=== PATIENT | male | born 1985 | race Caucasian/White ===

== ENCOUNTER 2023-03-13 14:27 | Inpatient (IN) | payer BC, SELFPAY ==
[2023-03-13] VITALS (8 sets, daily range): BP systolic 154–167; BP diastolic 91–97; PULSE 81–94; RESP 12–18; TEMP 36.7–36.9; O2SAT 95–100; BMI 25.8; BMI 24.0
--- NOTE | 2023-03-13 14:48 | ED.GENADUL1 ---
HPI - General Adult General Chief complaint: Extremity Injury, Lower Stated complaint: RIGHT LEG SWOLLEN/ WOUND CHECK Time Seen by Provider: 03/13/23 14:37 Source: patient Limitations: no limitations History of Present Illness HPI narrative: patient is a 37-year-old male with a history of diabetes who presents to the emergency department for the evaluation of redness, swelling to the right foot. Three weeks ago he developed a blister to the plantar aspect of the right great toe, he states he is on his feet a lot at work. He was seen by his PCP yesterday for an increase in redness and swelling to the foot, there has been drainage from the area where the blister appeared on the toe, there is now an open wound. He had lab work and an x-ray done at [facility] yesterday. His PCP put him on Keflex. He states in the last day he has noted significant increasing redness and swelling of the foot. No fevers or vomiting. Related Data Home Medications Medication Instructions Recorded Confirmed cephalexin 500 mg capsule 500 mg PO Q6H 03/13/23 03/13/23 levothyroxine 100 mcg tablet 100 mcg PO DAILY 03/13/23 03/13/23 lisinopril 5 mg tablet 5 mg PO DAILY 03/13/23 03/13/23 Allergies Allergy/AdvReac Type Severity Reaction Status Date / Time No Known Drug Allergies Allergy Verified 03/13/23 14:37 Review of Systems ROS Constitutional Denies: fever or chills Ears, nose, mouth, and throat Denies: throat pain Cardiovascular Denies: chest pain Respiratory Denies: shortness of breath or cough Gastrointestinal Denies: nausea or vomiting Musculoskeletal Reports: extremity pain and extremity swelling; Denies: back pain or neck pain Integumentary/Breast Denies: rash Neurological Denies: headache Hematologic/Lymphatic Denies: easy bruising PFSH PFSH Social History Smoking status: Current every day smoker Exam Narrative Exam Narrative: Gen.: Awake, alert, in no distress Head: Normocephalic, atraumatic ENT: Moist mucous membranes Respiratory: No respiratory distress Extremities: Moves extremities equally, right foot is edematous diffusely with the distal foot from the mid metatarsals with erythema and warmth. Right great toe with a 1 cm open wound on the plantar aspect of the toe, the right great toe is diffusely edematous, and red and painful. Psych: Normal mood and affect Neuro: No focal neuro deficit Skin: Warm, dry Constitutional Vital Signs, click to edit/add: Last Vital Signs Temp 98.4 F 03/13/23 14:39 Pulse 88 03/13/23 14:39 Resp 12 03/13/23 14:39 BP 167/97 H 03/13/23 14:39 Pulse Ox 100 03/13/23 14:39 O2 Del Method Room Air 03/13/23 14:39 Course Vital Signs Vital signs: Vital Signs Temperature 98.4 F 03/13/23 14:39 Pulse Rate 88 03/13/23 14:39 Respiratory Rate 12 03/13/23 14:39 Blood Pressure 167/97 H 03/13/23 14:39 Pulse Oximetry 100 03/13/23 14:39 Oxygen Delivery Method Room Air 03/13/23 14:39 Temperature 98.4 F 03/13/23 14:39 Pulse Rate 88 03/13/23 14:39 Respiratory Rate 12 03/13/23 14:39 Blood Pressure 167/97 H 03/13/23 14:39 Pulse Oximetry 100 03/13/23 14:39 Oxygen Delivery Method Room Air 03/13/23 14:39 Medical Decision Making MDM Narrative Medical decision making narrative: patient treated with IV fluids, Zosyn and vancomycin. Labs show elevated white blood cell count, elevated CRP and sedimentation rate. Blood cultures are pending. X-ray with no obvious evidence of osteomyelitis. Discussed with Dr. Cortez for podiatry and Dr. Hancock for hospitalist service to admit the patient. Podiatry will see the patient tomorrow morning in the hospital. Medical Records Medical records reviewed: Yes I reviewed the patient's medical records Lab Data Lab results reviewed: Yes I reviewed the patient's lab results Labs: Lab Results 03/13/23 03/13/23 Range/Units 15:00 15:19 WBC 17.7 H (4.0-11.0) 10^3/uL RBC 3.78 L (4.70-6.10) 10^6/uL Hgb 11.9 L (14.0-18.0) g/dL Hct 35.0 L (42.0-54.0) % MCV 92.6 (80.0-94.0) fL MCH 31.5 (25.9-34.0) pg MCHC 34.0 (29.9-35.2) g/dL RDW 11.8 (11.0-15.0) % Plt Count 314 (150-450) 10^3/uL MPV 9.8 (9.5-13.5) fL Neut % (Auto) 82.5 H (43.0-75.0) % Lymph % (Auto) 8.7 L (20.5-60.0) % [place] % (Auto) 7.4 (1.7-12.0) % Eos % (Auto) 0.5 L (0.9-7.0) % Baso % (Auto) 0.5 (0.2-2.0) % Neut # (Auto) 14.6 H (1.4-6.5) 10^3/uL Lymph # (Auto) 1.6 (1.2-3.8) 10^3/uL [place] # (Auto) 1.3 H (0.3-0.8) 10^3/uL Eos # (Auto) 0.1 (0.0-0.7) 10^3/uL Baso # (Auto) 0.1 (0.0-0.1) 10^3/uL Abs Immat Gran (auto) 0.07 H (0.00-0.03) 10^3/uL Imm/Tot Granulo (auto) 0.4 (0.0-0.5) % ESR 105 H (<=15) mm/hr PT 10.9 (9.0-11.6) sec INR 1.03 APTT 35.2 (22.3-36.2) sec Sodium 131 L (136-145) mmol/L Potassium 4.3 (3.5-5.1) mmol/L Chloride 95 L (98-107) mmol/L Carbon Dioxide 29.0 (21.0-32.0) mmol/L Anion Gap 11.3 BUN 23.0 H (7.0-18.0) mg/dL Creatinine 0.88 (0.70-1.30) mg/dL Est GFR ( Amer) >60 (>=60) Est GFR (Non-Af Amer) >60 (>=60) BUN/Creatinine Ratio 26.1 Glucose 332 H (74-106) mg/dL Lactate 0.8 (0.4-2.0) mmol/L Calcium 8.4 L (8.5-10.1) mg/dL Total Bilirubin 0.6 (0.2-1.0) mg/dL AST 27 (15-37) U/L ALT 26 (16-63) U/L Alkaline Phosphatase 90 (46-116) U/L C-Reactive Protein 16.7 H (<=1.0) mg/dL Total Protein 7.1 (6.4-8.2) g/dL Albumin 2.4 L (3.4-5.0) g/dL Globulin 4.7 g/dL Albumin/Globulin Ratio 0.5 Imaging Data XR foot: Attestation: I have reviewed the pertinent imaging results. Radiologist's impression: Procedure: XR foot RT min 3V EXAM: XR foot RT min 3V HISTORY: First digit pain COMPARISON: None. TECHNIQUE: 3 views FINDINGS: IMPRESSION: Subcutaneous soft tissue edema of the first digit and medial aspect of the foot. Questionable subcutaneous soft tissue emphysema. No visualized fracture, dislocation or periosteal reaction of the osseous structures. Mild degenerative changes of the first IP joint. This may relate to an infection, however, limited on this study. The remainder of the joint spaces are unremarkable. Electronically authenticated by: ANAY BUTT Date: 03/13/2023 15:52 Discharge Plan Discharge Chief Complaint: Extremity Injury, Lower Clinical Impression: Wound infection, Diabetic foot ulcer Patient Disposition: Admitted As Inpatient Time of Disposition Decision: 16:12 Prescriptions / Home Meds: No Action levothyroxine 100 mcg tablet 100 mcg PO DAILY lisinopril 5 mg tablet 5 mg PO DAILY cephalexin 500 mg capsule 500 mg PO Q6H Stand Alone Forms: Portal Instructions Referrals: ANAY QUIJANO [Primary Care Provider] - 1 week
--- NOTE | 2023-03-13 14:55 | XR_ITS ---
The [address] [address] Patient Name: NELLY WARD MRN: [id number] date: 1985 Sex: M Assigned Patient Location: ER Current Patient Location: ER Accession/Order Number: [id number] Exam Date: 03/13/2023 15:25 Report Date: 03/13/2023 15:52 At the request of: TERRIE PEREZ Procedure: XR foot RT min 3V EXAM: XR foot RT min 3V HISTORY: First digit pain COMPARISON: None. TECHNIQUE: 3 views FINDINGS: IMPRESSION: Subcutaneous soft tissue edema of the first digit and medial aspect of the foot. Questionable subcutaneous soft tissue emphysema. No visualized fracture, dislocation or periosteal reaction of the osseous structures. Mild degenerative changes of the first IP joint. This may relate to an infection, however, limited on this study. The remainder of the joint spaces are unremarkable. Electronically authenticated by: ANAY BUTT Date: 03/13/2023 15:52
[2023-03-13] MEDS: 0.9 % SODIUM CHLORIDE 1,000 ML 1000 ML IV (15:16)
[2023-03-13] MEDS: VANCOMYCIN HCL 1,000 MG in 0.9 % SODIUM CHLORIDE 500 ML 250 MG IV (15:17)
[2023-03-13] MEDS: PIPERACILLIN SODIUM/TAZOBACTAM 4.5 GM in 0.9 % SODIUM CHLORIDE 50 ML IV (15:17)
[2023-03-13 15:30] LABS: Basophils Absolute Auto 0.1 10^3/uL (0.0-0.1); Basophils Percent Auto 0.5 % (0.2-2.0); Eosinophils Absolute Auto 0.1 10^3/uL (0.0-0.7); Eosinophils Percent Auto 0.5 % (0.9-7.0); Hemoglobin 11.9 g/dL (14.0-18.0); Immature Granulocytes Abs Auto 0.07 10^3/uL (0.00-0.03); Immature Granulocytes Pct Auto 0.4 % (0.0-0.5); Lymphocytes Absolute Auto 1.6 10^3/uL (1.2-3.8); Lymphocytes Percent Auto 8.7 % (20.5-60.0); Mean Corpuscular Hemoglobin 31.5 pg (25.9-34.0); Mean Corpuscular Volume 92.6 fL (80.0-94.0); Mean Platelet Volume 9.8 fL (9.5-13.5); Monocytes Absolute Auto 1.3 10^3/uL (0.3-0.8); Monocytes Percent Auto 7.4 % (1.7-12.0); Neutrophils Absolute Auto 14.6 10^3/uL (1.4-6.5); Neutrophils Percent Auto 82.5 % (43.0-75.0); Platelet Count 314 10^3/uL (150-450); Red Blood Count 3.78 10^6/uL (4.70-6.10); Red Cell Distribution Width 11.8 % (11.0-15.0); White Blood Count 17.7 10^3/uL (4.0-11.0)
[2023-03-13 15:34] LABS: Erythrocyte Sedimentation Rate 105 mm/hr (<=15)
[2023-03-13 15:52] LABS: INR 1.03; Lactate/Lactic Acid 0.8 mmol/L (0.4-2.0); Partial Thromboplastin Time 35.2 sec (22.3-36.2); Prothrombin Time 10.9 sec (9.0-11.6)
[2023-03-13 15:55] LABS: Alanine Aminotransferase 26 U/L (16-63); Albumin Globulin Ratio 0.5; Albumin Level 2.4 g/dL (3.4-5.0); Alkaline Phosphatase 90 U/L (46-116); Anion Gap 11.3; Aspartate Amino Transferase 27 U/L (15-37); BUN Creatinine Ratio 26.1; Bilirubin Total 0.6 mg/dL (0.2-1.0); C Reactive Protein 16.7 mg/dL (<=1.0); Calcium 8.4 mg/dL (8.5-10.1); Chloride 95 mmol/L (98-107); Estimated GFR (African America >60 (>=60); Estimated GFR (Non-African Ame >60 (>=60); Globulin 4.7 g/dL; Glucose 332 mg/dL (74-106); Potassium 4.3 mmol/L (3.5-5.1); Sodium 131 mmol/L (136-145); Total Protein 7.1 g/dL (6.4-8.2)
--- NOTE | 2023-03-13 16:04 | ECG_ITS ---
The [facility] Test Date: 2023-03-13 Pat Name: NELLY WARD Department: Room: 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
--- NOTE | 2023-03-13 16:13 | P.HP_ITS ---
H&P: HPI History of Present Illness Chief complaint: RIGHT LEG/FOOT WOUND CHECK,Diabetic Foot Wound Inf Narrative: 37 year old white male with history of HTN, type 2 diabetes insulin dependent, hypothyroidism who presented to hospital today with increased swelling, redness and pain of the right foot. Blister present for 3 weeks which has progressed to drainage. Did see his PCP recently and placed on keflex as outpatient. Worsening symptoms today brought him in of swelling up to his knee, purulent drainage from his toe, and chills. Patient denies significant pain, or vomiting. Sees Endocrine in [place], takes lantus and SSI. Last ha1c was 9.0 Review of Systems ROS Narrative ROS: a complete review of systems were reviewed with patient and are positive as below or listed in History of Chief Complaint. General: no fever, but some chills, no night sweats Head: no headache, trauma, visual changes, nausea or vomiting Skin: sore noted on the right great toe with swelling and redness Eyes: no blurriness of vision Ears: no reported hearing loss, vertigo, earache, or tinnitus Throat: no sore throat, hoarseness, swelling of neck, or tongue pain Heart: no chest pain Lungs: no shortness of breath or cough GI: no diarrhea or vomiting/nausea Urinary: no urinary urgency, frequency or pain Neuro: no numbness or tingling HEM: no bleeding issues or bruising ENDO: thyroid problems Psych: no anxiety or depression PFSH PFSH Social History Smoking status: Current every day smoker Meds Home Medications and Allergies Home Medications Medication Instructions Recorded Confirmed Type atorvastatin 20 mg tablet 20 mg PO .hs 03/13/23 03/13/23 History cephalexin 500 mg capsule 500 mg PO Q6H 03/13/23 03/13/23 History ergocalciferol (vitamin D2) 1,250 1,250 mcg PO .weekly 03/13/23 03/13/23 History mcg (50,000 unit) capsule levothyroxine 100 mcg tablet 100 mcg PO DAILY 03/13/23 03/13/23 History lisinopril 5 mg tablet 5 mg PO DAILY 03/13/23 03/13/23 History Allergies Allergy/AdvReac Type Severity Reaction Status Date / Time No Known Drug Allergies Allergy Verified 03/13/23 14:37 Exam Narrative Exam Narrative: General: Patient is alert, and oriented to person, place and time with normal affect, proper hygiene Skin: right great toe with deep ulcer on the plantar surface, purulent drainage, swelling and erythema that includes the top of the foot to just below the right knee; pain with palpation into the 1st metatarsal joint Head: atraumatic, acephalic Eyes: PERRLA, no nystagmus present, conjunctiva clear, no scleral icterus Heart: Normal rate and rhythm, no murmurs/rubs/gallops Lungs: no audible wheezes, crackles and normal breath sounds all lung plasencia Abdomen: Normal audible bowel sounds, no distension, No palpable masses, no organomegaly, no rebound/guarding/ or rigidity Musculoskeletal: no swelling of the left lower extremities Neuro: CN II-X grossly intact, normal sensation upper and lower extremities Constitutional Vital Signs, click to edit/add: Last Vital Signs Temp 98.4 F 03/13/23 14:39 Pulse 81 03/13/23 16:08 Resp 18 03/13/23 16:08 BP 154/91 H 03/13/23 16:08 Pulse Ox 98 03/13/23 16:08 O2 Del Method Room Air 03/13/23 14:39 Results Labs Labs: Short CBC 03/13/23 Range/Units 15:00 WBC 17.7 H (4.0-11.0) 10^3/uL Hgb 11.9 L (14.0-18.0) g/dL Hct 35.0 L (42.0-54.0) % Plt Count 314 (150-450) 10^3/uL BMP 03/13/23 15:00 Sodium 131 L Potassium 4.3 Chloride 95 L Carbon Dioxide 29.0 BUN 23.0 H Creatinine 0.88 Glucose 332 H Calcium 8.4 L Liver Function 03/13/23 Range/Units 15:00 Total Bilirubin 0.6 (0.2-1.0) mg/dL AST 27 (15-37) U/L ALT 26 (16-63) U/L Alkaline Phosphatase 90 (46-116) U/L Albumin 2.4 L (3.4-5.0) g/dL Assessment and Plan Assessment and Plan (1) Cellulitis and abscess of foot: Assessment and Plan: podiatry consult, elevated CRP and ESR, elevated WBC's. will place on vanc and zosyn. NPO after midnight incase of surgical debridement tomorrow. Normal coags, check presurgical EKG, telemetry (2) Diabetic foot ulcer: Assessment and Plan: see #1, ha1c in the morning (3) Hypertension: Assessment and Plan: continue lisinopril, add hydralazine (4) Hypothyroidism: Assessment and Plan: continue levothyroxine (5) Type 2 diabetes mellitus: Assessment and Plan: ha1c in the morning, ssi, qac and qhs accuchecks, restart Lantus Plan full code lovenox for DVT prophylaxis
[2023-03-13 16:25] LABS: Vancomycin Trough <0.8 ug/mL (5.0-20.0)
[2023-03-13] MEDS: PIPERACILLIN SODIUM/TAZOBACTAM 3.375 GM in 0.9 % SODIUM CHLORIDE 50 ML IV (18:58)
[2023-03-13] MEDS: LACTATED RINGER'S SOLUTION 1,000 ML 125 ML IV (18:58)
[2023-03-13] MEDS: ENOXAPARIN SODIUM 40 MG/0.4 ML SYRINGE SUBQ (20:11)
[2023-03-13] MEDS: LEVOTHYROXINE SODIUM 100 MCG TABLET PO (20:11)
[2023-03-13] MEDS: LISINOPRIL 5 MG TABLET PO (20:11)
[2023-03-13 20:15] LABS: Glucometer 367 mg/dL (74-106)
[2023-03-13] MEDS: INSULIN ASPART 300 UNIT/3 ML PEN SUBQ (21:30)
[2023-03-14] VITALS (67 sets, daily range): BP systolic 84–141; BP diastolic 55–84; PULSE 67–97; RESP 0–28; TEMP 36.7–37; O2SAT 93–100
[2023-03-14] MEDS: VANCOMYCIN HCL 1,000 MG in 0.9 % SODIUM CHLORIDE 250 ML 250 MG IV ×4 (00:16→22:24)
[2023-03-14] MEDS: PIPERACILLIN SODIUM/TAZOBACTAM 3.375 GM in 0.9 % SODIUM CHLORIDE 50 ML IV ×3 (02:35→20:34)
[2023-03-14 05:03] LABS: Basophils Absolute Auto 0.1 10^3/uL (0.0-0.1); Basophils Percent Auto 0.7 % (0.2-2.0); Eosinophils Absolute Auto 0.3 10^3/uL (0.0-0.7); Eosinophils Percent Auto 2.1 % (0.9-7.0); Hematocrit 30.3 % (42.0-54.0); Hemoglobin 10.4 g/dL (14.0-18.0); Immature Granulocytes Abs Auto 0.06 10^3/uL (0.00-0.03); Immature Granulocytes Pct Auto 0.4 % (0.0-0.5); Lymphocytes Absolute Auto 2.3 10^3/uL (1.2-3.8); Lymphocytes Percent Auto 15.7 % (20.5-60.0); Mean Corpuscular HGB Conc 34.3 g/dL (29.9-35.2); Mean Corpuscular Hemoglobin 31.6 pg (25.9-34.0); Mean Corpuscular Volume 92.1 fL (80.0-94.0); Mean Platelet Volume 10.1 fL (9.5-13.5); Monocytes Absolute Auto 1.2 10^3/uL (0.3-0.8); Neutrophils Absolute Auto 10.5 10^3/uL (1.4-6.5); Neutrophils Percent Auto 73.1 % (43.0-75.0); Platelet Count 288 10^3/uL (150-450); Red Blood Count 3.29 10^6/uL (4.70-6.10); Red Cell Distribution Width 11.7 % (11.0-15.0); White Blood Count 14.3 10^3/uL (4.0-11.0)
[2023-03-14 05:21] LABS: Estimated Average Glucose 212 mg/dL
[2023-03-14 05:34] LABS: Alanine Aminotransferase 22 U/L (16-63); Albumin Globulin Ratio 0.5; Albumin Level 1.9 g/dL (3.4-5.0); Alkaline Phosphatase 94 U/L (46-116); Anion Gap 9.1; Aspartate Amino Transferase 17 U/L (15-37); BUN Creatinine Ratio 21.4; Bilirubin Total 0.3 mg/dL (0.2-1.0); Calcium 8.1 mg/dL (8.5-10.1); Chloride 97 mmol/L (98-107); Estimated GFR (African America >60 (>=60); Estimated GFR (Non-African Ame >60 (>=60); Globulin 4.1 g/dL; Glucose 343 mg/dL (74-106); Potassium 4.1 mmol/L (3.5-5.1); Sodium 129 mmol/L (136-145)
--- NOTE | 2023-03-14 09:04 | PM.PN ---
Progress Note: Subjective Subjective Interval history: went to see patient post op. denies any issues or concerns. patient feels surgery went well. No current pain, no fevers or chills, no chest pain or sob Exam Narrative Exam Narrative: General: Patient is alert, and oriented to person, place and time with normal affect, proper hygiene, was resting comfortably Skin: right foot dressing is c/d/i Head: atraumatic, acephalic Heart: Normal rate and rhythm, no murmurs/rubs/gallops Lungs: no audible wheezes, crackles and normal breath sounds all lung plasencia Neuro: CN II-X grossly intact Constitutional Vital Signs, click to edit/add: Last Vital Signs Temp 98.4 F 03/14/23 06:33 Pulse 77 03/14/23 08:00 Resp 16 03/14/23 05:06 BP 126/68 03/14/23 05:06 Pulse Ox 93 L 03/14/23 05:06 O2 Del Method Room Air 03/14/23 05:06 Progress Note: Objective Labs Labs: Short CBC 03/13/23 03/14/23 Range/Units 15:00 04:05 WBC 17.7 H 14.3 H (4.0-11.0) 10^3/uL Hgb 11.9 L 10.4 L (14.0-18.0) g/dL Hct 35.0 L 30.3 L (42.0-54.0) % Plt Count 314 288 (150-450) 10^3/uL BMP 03/13/23 03/14/23 15:00 04:05 Sodium 131 L 129 L Potassium 4.3 4.1 Chloride 95 L 97 L Carbon Dioxide 29.0 27.0 BUN 23.0 H 18.0 Creatinine 0.88 0.84 Glucose 332 H 343 H Calcium 8.4 L 8.1 L Liver Function 03/13/23 03/14/23 Range/Units 15:00 04:05 Total Bilirubin 0.6 0.3 (0.2-1.0) mg/dL AST 27 17 (15-37) U/L ALT 26 22 (16-63) U/L Alkaline Phosphatase 90 94 (46-116) U/L Albumin 2.4 L 1.9 L (3.4-5.0) g/dL Progress Note: A&P Assessment and Plan (1) Cellulitis and abscess of foot: Assessment and Plan: elevated CRP and ESR, elevated WBC's, slight improvement today. will place on vanc and zosyn. surgery today, continue podiatry recs (2) Diabetic foot ulcer: Assessment and Plan: see #1 (3) Hypertension: Assessment and Plan: continue lisinopril, and hydralazine (4) Hypothyroidism: Assessment and Plan: continue levothyroxine (5) Type 2 diabetes mellitus: Assessment and Plan: ha1c 9.0, ssi, qac and qhs accuchecks, restart Lantus 10 units bid Plan full code lovenox for DVT prophylaxis
[2023-03-14] MEDS: INSULIN ASPART 300 UNIT/3 ML PEN SUBQ ×3 (09:43→20:32)
--- NOTE | 2023-03-14 09:46 | PM.PODCN1 ---
[facility] - Podiatry Data of Consult Patient: new to practice Consult date: 03/14/23 Requesting physician: Rupal Hancock DO Primary care provider: ANAY QUIJANO Consult Narrative Reason for consult: Right great toe ulcer, Infection Narrative: Patient is a 37-year-old male presents to [facility] yesterday with chief complaint of right hallux ulcer with worsening redness, swelling, pain and drainage week. Patient states that he first noticed the ulcer about 3 weeks ago which started as a blister and subsequently developed this ulcer. He did see his primary care approximately 2 days ago for this and was placed on Keflex. However the next day he noticed the increase in symptoms and presented to the ED. He was subsequently admitted for further work-up he denies any specific incident causing the ulcer. 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 Admits to smoking 1 pack/day since his teens. Denies any other lower extremity complaints at this time. Denied any constitutional symptoms at time of visit. cc:: CC: Rupal Hancock DO [facility] Social History Smoking status: Current every day smoker Exam Narrative Exam Narrative: Vascular: DP and PT pulses nonpalpable, DP biphasic and PT monophasic on Doppler exam. CFT intact to digits 2 through 4. Tuft of right hallux is dusky with significantly delayed refill. Erythema extending from the right hallux to the foot with mild nonpitting edema of the right foot and ankle. No ascending lymphangitis. Neuro: Light touch and gross sensation intact. Protective sensation is diminished to the digits. No pain out of proportion. Derm: Full-thickness ulceration right plantar medial hallux IPJ with fibrotic base and central necrotic plug, approximately 1 cc purulent drainage expressed. There is fluctuance to the tuft of the toe as well as the dorsal IPJ suspicious for abscess. Probes to capsular layer. No other open lesions noted. MSK: Strength 5/5 for all 4 pedal groups. Active and passive range of motion the ankle subtalar joint full without pain or crepitus. Right first MTP range of motion limited in dorsiflexion with guarding due to pain from the ulcer. Active range of motion of the first MTP intact. Palpatory tenderness elicited directly to the ulceration as well as the right hallux circumferentially. Compartments are compressible with no pain upon calf or thigh compression. X-ray: 3 views of right foot demonstrate no soft tissue emphysema. There is soft tissue defect consistent with the clinical ulceration site. No cortical destructive changes to suggest osteomyelitis. There is significant osteophyte formation to the medial and plantar hallux IPJ. Constitutional Vital Signs, click to edit/add: Last Vital Signs Temp 98.4 F 03/14/23 06:33 Pulse 77 03/14/23 08:00 Resp 16 03/14/23 05:06 BP 126/68 03/14/23 05:06 Pulse Ox 93 L 03/14/23 05:06 O2 Del Method Room Air 03/14/23 05:06 Assessment and Plan Assessment and Plan (1) Cellulitis and abscess of foot: (2) Diabetic foot ulcer: (3) Hypertension: (4) Hypothyroidism: (5) Type 2 diabetes mellitus: Plan Patient examined evaluated. All findings discussed with patient and all questions answered to patient's satisfaction. Labs and imaging reviewed. Leukocytosis at 14,000, down from 17,000 yesterday. ESR 102 and CRP 16. X-ray did not show any occult cortical destructive changes, there are significant osteophytes to the medial and plantar aspect of the base of the distal phalanx which I suspect contributed to increased pressure in this area causing the ulcer. The plantar osteophyte is an abnormal appearance and may be fracture fragment, however difficult to assess based on angulation of the x-ray. Right foot ulcer acutely infected with underlying abscess and duskiness to the distal tuft of the toe. Recommendation is for incision and drainage with deep tissue culture and bone biopsy today. Has been n.p.o. since midnight. Discussed the above plan with the patient and he is in agreement. Discussed importance of smoking cessation and tight glucose control. Most recent A1c 9.0. Will need NIVS/ABIs and potential vascular consult. Currently on IV Vanco and Zosyn. Rest per primary. We will update plan in operative note.
[2023-03-14] MEDS: LACTATED RINGER'S SOLUTION 1,000 ML 50 ML IV (10:04)
[2023-03-14] MEDS: 0.9 % SODIUM CHLORIDE 1,000 ML 75 ML IV (10:50)
[2023-03-14] MEDS: VANCOMYCIN HCL 500 MG VIAL 1000 MG TOPICAL (11:30)
--- NOTE | 2023-03-14 11:49 | PM.ORONB ---
Brief Operative Note Date of procedure: 03/14/23 Pre-op diagnosis: Right hallux ulceration down to tendon and capsule, abscess, osteomyelitis Post-op diagnosis: same as pre-op Procedure: Right hallux incision and drainage, excisional debridement of nonviable soft tissue and bone, bone biopsy distal phalanx. Anesthesia: General-LMA Surgeon: Bandar Mishra Mental Health Program Manager: Ryan Castillo Estimated blood loss (mL): 5 Tourniquet time (min): 20 Pathology: other (Bone biopsy right hallux distal phalanx, path. Pre and post lavage tissue culture, micro) Condition: stable Disposition: PACU Assessment & Plan Assessment & Plan (1) Cellulitis and abscess of foot: (2) Diabetic foot ulcer: (3) Hypertension: (4) Hypothyroidism: (5) Type 2 diabetes mellitus: Plan This is a 37-year-old male presented to [facility] yesterday with a 3-week history of worsening right hallux ulceration with increased redness swelling and pain with purulent drainage over the past few days. Was taking Keflex upon admission from his PCP but only for about 24 hours. He has history of uncontrolled type 2 diabetes, most recent A1c 9.0 and is 1 pack/day smoker. Leukocytosis at 14, down from 17 upon admission with elevated ESR and CRP. Upon initial exam the toe was dusky in appearance, fluctuant consistent with abscess in the ulceration had significant necrotic tissue probing down to the tendon and capsular layer. Pedal pulses were non palpable and biphasic upon Doppler, therefore it was deemed necessary to perform incision and drainage with excisional debridement of nonviable bone and soft tissue with bone biopsy of the right hallux as staged limb salvage procedure. I discussed the procedure in detail as well as risk and complications including but not limited to infection, wound healing complications, need for further surgery and potential for amputation. Patient expressed an understanding of these risks and informed consent was obtained prior to the procedure. Procedure in detail: Patient was brought to the operating room placed on the operating table supine position. Sign and was conducted and right lower extremity preston was confirmed. Patient was then placed under general LMA per anesthesia records. An ankle tourniquet was well-padded and applied to the right calf. The right lower extremity was then prepped and draped in standard aseptic technique. Right lower extremity was exsanguinated with an Esmarch and ankle tourniquet insufflated to 250 mmHg for 20 minutes for the procedure as described below. Description of procedure. After anesthesia was confirmed, a 3 cm longitudinal incision was made overlying the hallux IPJ along the medial border. Blunt dissection was carried out and priscilla purulence was expressed, approximately 5 cc with significant malodor. Hemostats were used to dilate the surrounding tissues and search for any signs of proximal tracking of which none were found. There did not appear to be any tracking proximally up the tendons sheath. Capsular tissue was dusky and necrotic in appearance, all disease nonviable tissue was excised with combination of sharp excision and rongeur down to and including bone. The bone at the base of the distal phalanx was soft with pathologic fracture, the articular surface was loosely floating within the joint space and excised easily. A second fracture fragment plantarly was attached only to capsular tissue and was dusky in appearance and excised in total. The head of the proximal phalanx surprisingly maintained anatomically normal appearance and articular cartilage remained intact. The plantar wound did communicate with the hallux IPJ and at this point after all nonviable tissue had been excised prelavage culture was obtained and sent for micro analysis. The pulsatile lavage was then used to irrigate the site with 3 L of normal saline. The area was then inspected and it appeared that all nonviable tissue had been excised. The tourniquet was then deflated and there was very minimal bleeding noted. A post lavage culture was then obtained and sent for microanalysis. A clean, sterile rongeur was used to excise a fragment of the distal phalanx to send for pathologic exam. The wound and incision were packed with vancomycin powder and the medial incision was closed with simple 2-0 Prolene to allow for drainage through the plantar wound. The cavity was packed with Betadine moistened packing strips and a dressing of Betadine moistened gauze, dry sterile dressing, Kerlix and loose Abundio wrap was applied to the right foot. Patient was then transported to PACU for further monitoring prior to return to his inpatient suite. Vital signs were stable and vascular status was intact to digits 2 through 5, with sluggish refill and still dusky appearance of the right hallux tuft which was consistent with his preoperative state. Due to intraoperative findings, patient is at high risk for amputation of the right hallux either at the IPJ or MTP level. We will need to obtain NIVS/ABIs with PVR during this admission and potential vascular consultation perhaps as outpatient upon discharge prior to determination of amputation level to prevent significant complication.
[2023-03-14 12:17] LABS: Glucometer 76 mg/dL (74-106)
--- NOTE | 2023-03-14 12:44 | CM.NOTE ---
Pt in OR, Dr. Hancock will see pt when returns from OR.
--- NOTE | 2023-03-14 12:50 | XR_ITS ---
[facility] [place] [id number] Patient Name: NELLY WARD MRN: [id number] date: 1985 Sex: M Assigned Patient Location: MS Current Patient Location: [place] Accession/Order Number: [id number] Exam Date: 03/14/2023 12:45 Report Date: 03/14/2023 12:59 At the request of: ASHLYN BARAJAS Procedure: XR foot RT min 3V STUDY: XR foot RT min 3V, [id number] HISTORY: postop xr COMPARISON: Right foot x-rays 03/13/2023 FINDINGS/IMPRESSION: Status post debridement/resection of a portion of the base of the right first distal phalanx. No unexpected fracture or dislocation. Electronically authenticated by: DANYELLE ROOT Date: 03/14/2023 12:59
[2023-03-14 17:14] LABS: Vancomycin Trough 12.4 ug/mL (5.0-20.0)
[2023-03-14 17:54] LABS: Glucometer 345 mg/dL (74-106)
[2023-03-14] MEDS: INSULIN DETEMIR 300 UNIT/3 ML INSULN.PEN 10 UNIT SUBQ (20:34)
[2023-03-14] MEDS: LISINOPRIL 5 MG TABLET PO (20:36)
[2023-03-14] MEDS: ENOXAPARIN SODIUM 40 MG/0.4 ML SYRINGE SUBQ (20:36)
[2023-03-14] MEDS: IBUPROFEN 400 MG TABLET PO (20:36)
[2023-03-14] MEDS: LEVOTHYROXINE SODIUM 100 MCG TABLET PO (20:36)
[2023-03-14 20:40] LABS: Glucometer 418 mg/dL (74-106)
[2023-03-14] MEDS: ATORVASTATIN CALCIUM 20 MG TABLET PO (22:02)
[2023-03-14 23:26] LABS: Glucometer 425 mg/dL (74-106)
[2023-03-15] VITALS (15 sets, daily range): BP systolic 130–158; BP diastolic 73–84; PULSE 61–97; RESP 16–20; TEMP 36.4–36.8; O2SAT 95
[2023-03-15] MEDS: 0.9 % SODIUM CHLORIDE 1,000 ML 75 ML IV ×2 (02:52→17:07)
[2023-03-15] MEDS: PIPERACILLIN SODIUM/TAZOBACTAM 3.375 GM in 0.9 % SODIUM CHLORIDE 50 ML IV ×3 (02:53→20:15)
[2023-03-15 04:26] LABS: Basophils Percent Auto 0.1 % (0.2-2.0); Hematocrit 33.3 % (42.0-54.0); Hemoglobin 11.4 g/dL (14.0-18.0); Immature Granulocytes Abs Auto 0.08 10^3/uL (0.00-0.03); Immature Granulocytes Pct Auto 0.5 % (0.0-0.5); Lymphocytes Percent Auto 6.1 % (20.5-60.0); Mean Corpuscular HGB Conc 34.2 g/dL (29.9-35.2); Mean Corpuscular Hemoglobin 30.9 pg (25.9-34.0); Mean Corpuscular Volume 90.2 fL (80.0-94.0); Monocytes Absolute Auto 0.9 10^3/uL (0.3-0.8); Monocytes Percent Auto 5.4 % (1.7-12.0); Neutrophils Absolute Auto 15.1 10^3/uL (1.4-6.5); Neutrophils Percent Auto 87.9 % (43.0-75.0); Platelet Count 300 10^3/uL (150-450); Red Blood Count 3.69 10^6/uL (4.70-6.10); Red Cell Distribution Width 11.6 % (11.0-15.0); White Blood Count 17.1 10^3/uL (4.0-11.0)
[2023-03-15] MEDS: VANCOMYCIN HCL 1,000 MG in 0.9 % SODIUM CHLORIDE 250 ML 250 MG IV (06:01)
[2023-03-15 06:53] LABS: Alanine Aminotransferase 20 U/L (16-63); Albumin Globulin Ratio 0.5; Alkaline Phosphatase 98 U/L (46-116); Anion Gap 10.8; Aspartate Amino Transferase 15 U/L (15-37); BUN Creatinine Ratio 24.7; Bilirubin Total 0.4 mg/dL (0.2-1.0); Calcium 8.3 mg/dL (8.5-10.1); Carbon Dioxide 24.8 mmol/L (21.0-32.0); Chloride 96 mmol/L (98-107); Estimated GFR (African America >60 (>=60); Estimated GFR (Non-African Ame >60 (>=60); Globulin 4.3 g/dL; Glucose 448 mg/dL (74-106); Potassium 4.6 mmol/L (3.5-5.1); Sodium 127 mmol/L (136-145); Total Protein 6.3 g/dL (6.4-8.2)
[2023-03-15 07:49] LABS: Glucometer 396 mg/dL (74-106)
[2023-03-15] MEDS: INSULIN DETEMIR 300 UNIT/3 ML INSULN.PEN 10 UNIT SUBQ ×2 (08:16→12:05)
[2023-03-15] MEDS: INSULIN ASPART 300 UNIT/3 ML PEN SUBQ ×4 (08:16→21:38)
[2023-03-15] MEDS: IBUPROFEN 400 MG TABLET PO ×2 (08:21→20:19)
--- NOTE | 2023-03-15 08:47 | PM.PN ---
Progress Note: Subjective Subjective Interval history: post op day #1. denies any issues or concerns. patient feels surgery went well. No current pain, no fevers or chills, no chest pain or sob. No complaints Exam Narrative Exam Narrative: General: Patient is alert, and oriented to person, place and time with normal affect, proper hygiene, was resting comfortably Skin: right foot dressing is c/d/i Head: atraumatic, acephalic Heart: Normal rate and rhythm, no murmurs/rubs/gallops Lungs: no audible wheezes, crackles and normal breath sounds all lung plasencia Neuro: CN II-X grossly intact Constitutional Vital Signs, click to edit/add: Last Vital Signs Temp 97.5 F L 03/15/23 04:13 Pulse 82 03/15/23 08:00 Resp 16 03/15/23 04:13 BP 158/84 H 03/15/23 04:13 Pulse Ox 95 03/15/23 04:13 O2 Del Method Room Air 03/15/23 04:13 Progress Note: Objective Labs Labs: Short CBC 03/15/23 Range/Units 04:15 WBC 17.1 H (4.0-11.0) 10^3/uL Hgb 11.4 L (14.0-18.0) g/dL Hct 33.3 L (42.0-54.0) % Plt Count 300 (150-450) 10^3/uL BMP 03/15/23 04:15 Sodium 127 L Potassium 4.6 Chloride 96 L Carbon Dioxide 24.8 BUN 21.0 H Creatinine 0.85 Glucose 448 H Calcium 8.3 L Liver Function 03/15/23 Range/Units 04:15 Total Bilirubin 0.4 (0.2-1.0) mg/dL AST 15 (15-37) U/L ALT 20 (16-63) U/L Alkaline Phosphatase 98 (46-116) U/L Albumin 2.0 L (3.4-5.0) g/dL Progress Note: A&P Assessment and Plan (1) Cellulitis and abscess of foot: Assessment and Plan: elevated CRP and ESR, elevated WBC's worse than yesterday. wound culture positive for Strep Agalactiae. Will stop Vancomycin and continue on zosyn, will also check venous ultrasound of the right leg today. His ha1c 9.0 complicates his improvement and further need for surgery and worsening infection. (2) Diabetic foot ulcer: Assessment and Plan: see #1 (3) Hypertension: Assessment and Plan: continue lisinopril, and hydralazine (4) Hypothyroidism: Assessment and Plan: continue levothyroxine (5) Type 2 diabetes mellitus: Assessment and Plan: ha1c 9.0, ssi, qac and qhs accuchecks, restart Lantus 20 units bid Plan full code lovenox for DVT prophylaxis weight baring on the right, heel only
--- NOTE | 2023-03-15 10:01 | PT.DAILY ---
Physical Therapy Daily Note PT Daily Note/Assess Start: 03/15/23 09:54 Freq: Status: Active Protocol: Document 03/15/23 09:54 ROBERT (Rec: 03/15/23 10:01 ROBERT [id number]) Physical Therapy Daily Note/Assessment Time In/Time Out Time In 09:30 Time Out 09:43 Pain In Pain N/A Pain Out Pain N/A Subjective Subjective Sitting EOB upon arrival. Agrees to stair training but needs to use restroom first. Pt reports he has been amb in room ad yvette heel down weight bearing - nursing is notified. SW Attempted to call podiatry for clarification but unable to reach surgeon at this time. Therapeutic Activity Time Therapeutic Activity Minutes (minutes) 10 Therapeutic Activity Units 1 Therapeutic Activity Treatment Bed Mobility Ability Modified Independent Chair Transfer Ability Modified Independent Therapeutic Activity Comments Pt sit>stand with Michelle due to IV lines. Pt reports he has been walking in room ad yvette with heel down weight bearing. Pt refuses to use AD for amb in room when offered by therapist. Pt completes toilet transfers/[employer] IND. Is transported in [place] down to therapy office for stair training. Crutch demo performed by therapist and pt is able to ascend>descend steps while maintaining NWB R LE with crutches for the most part with 1x exception when on top of stairs to pivot and turn around. Pt is then instructed to amb in therapy office with RW while maintaining NWB and he is able to do this without much difficulty. If pt is to return home and is completely NWB R LE he would need either crutches or RW. Total Physical Therapy Time Total Therapy Minutes 10 Total Physical Therapy Units 1 Summary Daily Note Summary Able to maintain NWB on stairs when using crutches today. Need clarification if pt is able to put heel down - will need AD at home if he is strictly NWB, though pt likely to be non-complaint with this .
--- NOTE | 2023-03-15 10:18 | SWNOTE1 ---
STEPHEN spoke to paralegal legal secretary at Danica's office, STEPHEN checking weight bearing status for pt. She was going to speak [facility] and let SW know. SW received call back and pt is able to be heel bearing, Dr. Mishra will be over today to see pt.
--- NOTE | 2023-03-15 10:43 | PT.DAILY ---
Physical Therapy Daily Note PT Daily Note/Assess Start: 03/15/23 09:54 Freq: Status: Active Protocol: Document 03/15/23 09:54 ROBERT (Rec: 03/15/23 10:01 ROBERT [id number]) Physical Therapy Daily Note/Assessment Time In/Time Out Time In 09:30 Time Out 09:43 Pain In Pain N/A Pain Out Pain N/A Subjective Subjective Sitting EOB upon arrival. Agrees to stair training but needs to use restroom first. Pt reports he has been amb in room ad yvette heel down weight bearing - nursing is notified. SW Attempted to call podiatry for clarification but unable to reach surgeon at this time. Therapeutic Activity Time Therapeutic Activity Minutes (minutes) 10 Therapeutic Activity Units 1 Therapeutic Activity Treatment Bed Mobility Ability Modified Independent Chair Transfer Ability Modified Independent Therapeutic Activity Comments Pt sit>stand with Michelle due to IV lines. Pt reports he has been walking in room ad yvette with heel down weight bearing. Pt refuses to use AD for amb in room when offered by therapist. Pt completes toilet transfers/[employer] IND. Is transported in [place] down to therapy office for stair training. Crutch demo performed by therapist and pt is able to ascend>descend steps while maintaining NWB R LE with crutches for the most part with 1x exception when on top of stairs to pivot and turn around. Pt is then instructed to amb in therapy office with RW while maintaining NWB and he is able to do this without much difficulty. If pt is to return home and is completely NWB R LE he would need either crutches or RW. Total Physical Therapy Time Total Therapy Minutes 10 Total Physical Therapy Units 1 Summary Daily Note Summary Able to maintain NWB on stairs when using crutches today. Need clarification if pt is able to put heel down - will need AD at home if he is strictly NWB, though pt likely to be non-complaint with this . Edit Result 03/15/23 09:54 ROBERT (Rec: 03/15/23 10:43 ROBERT [id number]) Physical Therapy Daily Note/Assessment Subjective Subjective Sitting EOB upon arrival. Agrees to stair training but needs to use restroom first. Pt reports he has been amb in room ad yvette heel down weight bearing - this was clarified by podiatry after session. Therapeutic Activity Treatment Therapeutic Activity Comments Pt sit>stand with Michelle due to IV lines. Pt reports he has been walking in room ad yvette with heel down weight bearing. Pt refuses to use AD for amb in room when offered by therapist. Pt completes toilet transfers/[employer] IND. Is transported in [place] down to therapy office for stair training. Crutch demo performed by therapist and pt is able to ascend>descend steps while maintaining NWB R LE with crutches for the most part with 1x exception when on top of stairs to pivot and turn around. Pt is then instructed to amb in therapy office with RW while maintaining NWB and he is able to do this without much difficulty. Clarified from podiatry he can put heel down with amb - but this was clarified after session so PT session was conservative on this date. Summary Daily Note Summary Able to complete stair training with crutches with NWB R LE except at top he does use heel down to pivot. Pain minimal. IND with transfers and ad yvette in room.
[2023-03-15 10:54] LABS: Glucometer 422 mg/dL (74-106)
--- NOTE | 2023-03-15 12:02 | CM.NOTE ---
Rounds made with Dr. Hancock, awaiting podiatry to see pt for recommendations and plan of care.
--- NOTE | 2023-03-15 13:13 | PM.PN ---
Progress Note: Subjective Subjective Interval history: POD 1; s/p right hallux I&D for diabetic foot infection. Patient has been out of bed and walking on his right heel. No foot pain, no fevers or chills, no chest pain or sob. No calf Pain. He is asking when he can be d/c Exam Narrative Exam Narrative: Dressing to right foot is c/d/i The tips of all five toes are visible and capillary refill is brisk and similar to all toes however there is mild pallor to the tip of the hallux which improves with dependence No calf On squeeze Constitutional Vital Signs, click to edit/add: Last Vital Signs Temp 97.5 F L 03/15/23 04:13 Pulse 67 03/15/23 12:24 Resp 16 03/15/23 04:13 BP 158/84 H 03/15/23 04:13 Pulse Ox 95 03/15/23 04:13 O2 Del Method Room Air 03/15/23 04:13 Progress Note: Objective Labs Labs: Short CBC 03/15/23 Range/Units 04:15 WBC 17.1 H (4.0-11.0) 10^3/uL Hgb 11.4 L (14.0-18.0) g/dL Hct 33.3 L (42.0-54.0) % Plt Count 300 (150-450) 10^3/uL BMP 03/15/23 04:15 Sodium 127 L Potassium 4.6 Chloride 96 L Carbon Dioxide 24.8 BUN 21.0 H Creatinine 0.85 Glucose 448 H Calcium 8.3 L Liver Function 03/15/23 Range/Units 04:15 Total Bilirubin 0.4 (0.2-1.0) mg/dL AST 15 (15-37) U/L ALT 20 (16-63) U/L Alkaline Phosphatase 98 (46-116) U/L Albumin 2.0 L (3.4-5.0) g/dL Progress Note: A&P Assessment and Plan (1) Cellulitis and abscess of foot: Assessment and Plan: Change or reinforce dressing as needed for strike through Weightbearing as tolerated to his heel with surgical shoe Preliminary cultures revealed strep - patient currently on vancomycin and Zosyn - creatinine was 0.8 - Discussed with Dr. Hancock and agree with discontinuing vancomycin and will only restart if coverage is not adequate pending further culture results Will continue to monitor closely as patient's leukocytosis was >17,000 - Patient will remain in the hospital tonight and we'll recheck leukocytosis and culture results tomorrow - If clinically stable and labs improve patient may be discharged as early as tomorrow but if no improvement patient may require repeat I and D on Saturday (2) Diabetic foot ulcer: (3) Hypertension: (4) Hypothyroidism: (5) Type 2 diabetes mellitus: Assessment and Plan: Discussed the concern of his uncontrolled diabetes and encouraged regular glucose testing and follow-up with his primary care. He was educated on diabetic foot care as well as I discussed the roughly 25 pack years of smoking and how this can prevent healing
--- NOTE | 2023-03-15 15:03 | US_ITS ---
The [address] [id number] Patient Name: NELLY WARD MRN: [id number] date: 1985 Sex: M Assigned Patient Location: MS Current Patient Location: MS Accession/Order Number: [id number] Exam Date: 03/15/2023 15:20 Report Date: 03/15/2023 16:37 At the request of: ADOLFO ARIAS Procedure: US venous doppler LE RT EXAM: US venous doppler LE RT HISTORY: swelling, pain for the past 3 days. The patient had a toe injury 3 weeks ago. COMPARISON: None. TECHNIQUE: Multiple sonographic images of the deep veins of the right lower extremity were obtained, supplemented with Doppler. FINDINGS: The deep veins of the right lower extremity are fairly well visualized from the groin to the mid calf. No filling defect is identified to indicate a thrombus. There is normal compression augmentation of flow throughout. US/US venous doppler LE RT IMPRESSION: There is no direct or indirect evidence of deep vein thrombosis in the right lower extremity at this time. Electronically authenticated by: NICO BADILLO Date: 03/15/2023 16:37
--- NOTE | 2023-03-15 15:24 | NUTR.NU ---
Pt c/o hunger on 1800 kcal CCD diet. Nutrient requirements are elevated d/t wound, infection; calculated @ 1598-6187 kcal (30-35 kcal/kg IBW 70.0 kg) and 105-140 gm PRO (1.5-2.0 gm/kg IBW 70.0 kg). Recommendation to physician for 2200 CCD diet and 30 mL PRO-stat BID to aid wound healing. Will continue to follow PRN.
[2023-03-15 16:25] LABS: Glucometer 316 mg/dL (74-106)
[2023-03-15] MEDS: ENOXAPARIN SODIUM 40 MG/0.4 ML SYRINGE SUBQ (20:15)
[2023-03-15] MEDS: LEVOTHYROXINE SODIUM 100 MCG TABLET PO (20:15)
[2023-03-15] MEDS: LISINOPRIL 5 MG TABLET PO (20:15)
[2023-03-15] MEDS: PROSTAT 15 GM PROTEIN/100 CAL 30 ML LIQUID PACKET PO (21:35)
[2023-03-15] MEDS: ATORVASTATIN CALCIUM 20 MG TABLET PO (21:35)
[2023-03-15] MEDS: INSULIN DETEMIR 300 UNIT/3 ML INSULN.PEN 20 UNIT SUBQ (21:38)
[2023-03-15 21:44] LABS: Glucometer 293 mg/dL (74-106)
[2023-03-16] VITALS (7 sets, daily range): BP systolic 133; BP diastolic 73; PULSE 57–77; RESP 20; TEMP 36.3; O2SAT 95
[2023-03-16] MEDS: PIPERACILLIN SODIUM/TAZOBACTAM 3.375 GM in 0.9 % SODIUM CHLORIDE 50 ML IV (03:06)
[2023-03-16 05:07] LABS: Hematocrit 30.4 % (42.0-54.0); Hemoglobin 10.5 g/dL (14.0-18.0); Mean Corpuscular HGB Conc 34.5 g/dL (29.9-35.2); Mean Corpuscular Hemoglobin 31.5 pg (25.9-34.0); Mean Corpuscular Volume 91.3 fL (80.0-94.0); Mean Platelet Volume 10.5 fL (9.5-13.5); Platelet Count 305 10^3/uL (150-450); Red Blood Count 3.33 10^6/uL (4.70-6.10); Red Cell Distribution Width 11.8 % (11.0-15.0); White Blood Count 11.4 10^3/uL (4.0-11.0)
[2023-03-16 05:30] LABS: Alanine Aminotransferase 17 U/L (16-63); Albumin Level 1.8 g/dL (3.4-5.0); Alkaline Phosphatase 82 U/L (46-116); Aspartate Amino Transferase 11 U/L (15-37); Bilirubin Total 0.1 mg/dL (0.2-1.0); Calcium 8.3 mg/dL (8.5-10.1); Carbon Dioxide 27.1 mmol/L (21.0-32.0); Chloride 100 mmol/L (98-107); Estimated GFR (African America >60 (>=60); Estimated GFR (Non-African Ame >60 (>=60); Glucose 283 mg/dL (74-106); Potassium 4.1 mmol/L (3.5-5.1); Sodium 133 mmol/L (136-145); Total Protein 5.8 g/dL (6.4-8.2)
[2023-03-16 05:32] LABS: Albumin Globulin Ratio 0.5
[2023-03-16 05:36] LABS: Basophils Abs Manual 0.11 10^3/uL (0.00-0.10); Eosinophils Absolute Manual 0.11 10^3/uL (0.00-0.70); Lymphocytes Absolute Manual 1.71 10^3/uL (1.20-3.80); Monocytes Absolute Manual 0.57 10^3/uL (0.30-0.80); Segmented Neut Absolute Manual 7.86 10^3/uL (1.4-6.5)
[2023-03-16] MEDS: 0.9 % SODIUM CHLORIDE 1,000 ML 75 ML IV (05:42)
[2023-03-16] MEDS: PROSTAT 15 GM PROTEIN/100 CAL 30 ML LIQUID PACKET PO (08:26)
[2023-03-16] MEDS: INSULIN ASPART 300 UNIT/3 ML PEN SUBQ ×2 (08:27→11:25)
[2023-03-16] MEDS: INSULIN DETEMIR 300 UNIT/3 ML INSULN.PEN 20 UNIT SUBQ (08:28)
[2023-03-16] MEDS: IBUPROFEN 400 MG TABLET PO (08:35)
--- NOTE | 2023-03-16 09:06 | PM.PN ---
Progress Note: Subjective Subjective Interval history: POD 2; s/p right hallux I&D for diabetic foot infection with Dr. Castillo No overnight events and denies foot pain Patient has been out of bed and walking on his right heel. He is asking when he can be d/c No foot pain, no fevers or chills, no chest pain or sob. No calf Pain. Exam Narrative Exam Narrative: Bandage is c/d/i Derm: after removing the bandage and packingthe wound was assessed. Sutures on the medial aspect of the toe are intact. Wound probes to bone but no purulent drainage. No surrounding erythema. Mild to moderate swelling localized to the great toe but is improved compared to yesterday. MSK: Range of motion of the 1st metatarsophalangeal joint and interphalangeal joint of the hallux elicits no pain or discomfort vasc: pedal pulses are palpable. Intact digital hair. Capillary refill is brisk. no calf pain on squeeze Neuro: no pain out of proportion. Light touch sensation is altered secondary to profound peripheral neuropathy bilaterally to plantar & dorsal feet Constitutional Vital Signs, click to edit/add: Last Vital Signs Temp 97.4 F L 03/16/23 05:43 Pulse 77 03/16/23 08:00 Resp 20 03/16/23 05:43 BP 133/73 03/16/23 05:43 Pulse Ox 95 03/16/23 05:43 O2 Del Method Room Air 03/16/23 05:43 Progress Note: Objective Labs Labs: Short CBC 03/16/23 Range/Units 04:20 WBC 11.4 H (4.0-11.0) 10^3/uL Hgb 10.5 L (14.0-18.0) g/dL Hct 30.4 L (42.0-54.0) % Plt Count 305 (150-450) 10^3/uL BMP 03/16/23 04:20 Sodium 133 L Potassium 4.1 Chloride 100 Carbon Dioxide 27.1 BUN 20.0 H Creatinine 0.80 Glucose 283 H Calcium 8.3 L Liver Function 03/16/23 Range/Units 04:20 Total Bilirubin 0.1 L (0.2-1.0) mg/dL AST 11 L (15-37) U/L ALT 17 (16-63) U/L Alkaline Phosphatase 82 (46-116) U/L Albumin 1.8 L (3.4-5.0) g/dL Progress Note: A&P Assessment and Plan (1) Cellulitis and abscess of foot: Assessment and Plan: clinically patient has continued to improve on Zosyn alone as vancomycin was discontinued yesterday. Preliminary cultures reveal strep and given the amount of debridement reportedly done by Dr. Castillo as well as positive probe to bone patient does have osteomyelitis of the great toe. WBC down from 17,000 to 11,400. Creatinine remains within normal limits and vital signs have remained stable. Appearance of the great toe has continued to improve and today has no erythema or purulent drainage I educated him again that he is at substantial risk to lose his toe and encouraged smoking cessation and tighter glucose control. Bandage was changed today and sutures were left intact. The wound was then redressed with quarter inch gauze packing, 4 x 4's, Kerlix and an Abundio wrap. (2) Diabetic foot ulcer: (3) Hypertension: (4) Hypothyroidism: (5) Type 2 diabetes mellitus: Plan Okay per podiatry that patient be discharged today and plan was communicated to Dr. Miles (hospitalist) WBAT to heal with a surgical shoe prescription for Augmentin 875 BID x14 days was placed in his chart follow-up in wound center on Saturday or Saturday - patient is to call Saturday morning to confirm appointment recommended that he follow-up with his PCP next week as well - again emphasized the importance of tighter glucose control and smoking cessation Keep the wound and bandage clean dry and intact. I did tell the patient that if the bandage becomes wet or disheveled he may reapply but should keep the packing in place. The packing will be changed at his follow-up appointment
[2023-03-16 11:20] LABS: Glucometer 262 mg/dL (74-106)
--- NOTE | 2023-03-16 12:03 | PM.DS1 ---
DS: Providers Provider Date of admission: 03/13/23 16:35 Primary care physician: ANAY QUIJANO Consults: 03/13/23 16:04 Occupational Therapy Eval and Treat Routine Reason for consultation: foot wound Has provider been notified: No Physical Therapy Eval and Treat Routine Reason for consultation: foot wound Has provider been notified: No 03/13/23 16:11 Consult to Podiatry Routine Consulting Provider: Bandar Mishra Reason for consultation: diabetic wound/cellulitis Has provider been notified: No DS: Diagnosis Discharge Diagnosis (1) Osteomyelitis of toe of right foot: (2) Cellulitis and abscess of foot: (3) Diabetic foot ulcer: (4) Type 2 diabetes mellitus with hyperglycemia: (5) Hypertension: (6) Type 2 diabetes mellitus with diabetic polyneuropathy: (7) Hypothyroidism: DS: Summary Hospital Course Hospital Course: Reason for admission: See ER note and H&P for details. 37 y/o male with long standing history of uncontrolled diabetes to ER with redness and swelling to right foot. Developed blister on right great toe 3 weeks prior. Increased redness and drainage. Seen by PCP and given keflex. Continued to have redness and to ER. WBC elevated and x-ray with concern of osteomyelitis. Admitted for treatment. Hospital course: Started vancomycin and zosyn. Podiatry consulted and peformed debridement. Resumed home medication and insulin. To OR for I&D. A1C elevated at 9.0. Wound culture showed S. agalactiae sensitive to penicillins. Stopped vancomycin. Osteomyelitis confirmed by wound and cultures. Patient stable and discharged home. Will continue oral augementin for infection. F/u with wound care 03/18. Resume home medication without change. Time Spent with Patient Time attestation: Total time spent providing and/or coordinating discharge services: Exam Constitutional Vital Signs, click to edit/add: Last Vital Signs Temp 97.4 F L 03/16/23 05:43 Pulse 70 03/16/23 09:56 Resp 20 03/16/23 05:43 BP 133/73 03/16/23 05:43 Pulse Ox 95 03/16/23 05:43 O2 Del Method Room Air 03/16/23 05:43 Documenting provider has reviewed patient's vital signs: yes Common normals: no apparent distress, oriented x3 and alert HENMT Common normals: normocephalic Eye Common normals: PERRL and EOMs intact bilaterally Respiratory Common normals: normal respiratory effort and clear to auscultation bilaterally Cardio Common normals: regular rate, regular rhythm, no gallops, no murmurs and no rub GI Common normals: Normal to inspection, nondistended, normoactive bowel sounds present and non-tender Extremity Common normals: no pedal edema DS: Data Data Completed and Pending Labs on day of discharge: Labs from last 24 hours 03/16/23 03/16/23 03/15/23 11:17 04:20 21:36 WBC 11.4 H RBC 3.33 L Hgb 10.5 L Hct 30.4 L MCV 91.3 MCH 31.5 MCHC 34.5 RDW 11.8 Plt Count 305 MPV 10.5 Seg Neuts % (Manual) 69.0 Lymphocytes % (Manual) 15.0 L Atypical Lymphs % (Man) 9.0 Monocytes % (Manual) 5.0 Eosinophils % (Manual) 1.0 Basophils % (Manual) 1.0 Neutrophils # (Manual) 7.86 H Lymphocytes # (Manual) 1.71 Abs Atypical Lymphs Man 1.0 Monocytes # (Manual) 0.57 Eosinophils # (Manual) 0.11 Basophils # (Manual) 0.11 H Sodium 133 L Potassium 4.1 Chloride 100 Carbon Dioxide 27.1 Anion Gap 10.0 BUN 20.0 H Creatinine 0.80 Est GFR ( Amer) >60 Est GFR (Non-Af Amer) >60 BUN/Creatinine Ratio 25.0 Glucose 283 H Calcium 8.3 L Total Bilirubin 0.1 L AST 11 L ALT 17 Alkaline Phosphatase 82 Total Protein 5.8 L Albumin 1.8 L Globulin 4.0 Albumin/Globulin Ratio 0.5 POC Glucose 262 H 293 H 03/15/23 16:23 WBC RBC Hgb Hct MCV MCH MCHC RDW Plt Count MPV Seg Neuts % (Manual) Lymphocytes % (Manual) Atypical Lymphs % (Man) Monocytes % (Manual) Eosinophils % (Manual) Basophils % (Manual) Neutrophils # (Manual) Lymphocytes # (Manual) Abs Atypical Lymphs Man Monocytes # (Manual) Eosinophils # (Manual) Basophils # (Manual) Sodium Potassium Chloride Carbon Dioxide Anion Gap BUN Creatinine Est GFR ( Amer) Est GFR (Non-Af Amer) BUN/Creatinine Ratio Glucose Calcium Total Bilirubin AST ALT Alkaline Phosphatase Total Protein Albumin Globulin Albumin/Globulin Ratio POC Glucose 316 H Preliminary micro results at discharge 03/14/23 11:10 Wound Culture - Preliminary Foot Right Strep agalactiae - (group b) 03/14/23 11:10 Wound Culture - Preliminary Foot Right Strep agalactiae - (group b) 03/13/23 15:19 - Preliminary Blood NO GROWTH AT 36-48 HOURS. FINAL TO FOLLOW. 03/13/23 15:00 Blood Culture Result 1 - Preliminary Blood NO GROWTH AT 36-48 HOURS. FINAL TO FOLLOW. Discharge Plan Discharge Discharge Medications: New amoxicillin-pot clavulanate 875-125 mg tablet 1 tab PO Q12H 14 Days Qty: 28 0RF Continued levothyroxine 100 mcg tablet 100 mcg PO DAILY Patient Comments: at HS lisinopril 5 mg tablet 5 mg PO DAILY Patient Comments: HS atorvastatin 20 mg tablet 20 mg PO .hs Patient Comments: hs ergocalciferol (vitamin D2) 1,250 mcg (50,000 unit) capsule 1,250 mcg PO .weekly Patient Comments: on mondays Discontinued cephalexin 500 mg capsule 500 mg PO Q6H Activity: resume usual activities as tolerated Activity Detail: weight bearing to rt heel only / wear postop shoe please when ambulating Diet: advance to your usual diet Patient Instructions: Amoxicillin/Clavulanate Potassium (By mouth), Abscess Incision and Drainage (DC) Forms: Portal Instructions Follow Up Appointments: Call Dr mishra office Saturday at 8am for follow up that day for dressing change [phone] Call your PCP Saturday for follow up next week
--- NOTE | 2023-03-18 15:09 | CM.DCFOLLOWU ---
Person spoke with: patient How are you feeling? well How is your pain? some pain Did you understand your discharge instructions? yes Do you have any questions about your discharge instructions? no Were you given any prescriptions at discharge? yes Were you able to get your prescriptions filled? yes Do you understand how to take your medications as ordered? yes Do you have any questions about your follow up appointment and do you plan to keep your follow up appointment? no questions, follow up with Dr. Mishra tomorrmaxx and he has scheduled one with his PCP as well Is there anything else that you would like to discuss? Patient requesting a release from doctor for work, he is going to ask Dr. Mishra tomorrmaxx at follow up Questions/Comments/Concerns/Other:
== END 2023-03-16 12:47 | disposition home or self-care (01) | DRG 629 ==
LOC: ER 16:13 → MS 17:00
PROVIDERS: Physician Assistant; Podiatrist Foot & Ankle Surgery; Admitting Provider Family Medicine; Emergency Provider Emergency Medicine; PCP Family Medicine; Visit Provider Family Medicine
PROC: 0QBQ0ZZ Excision of Right Toe Phalanx, Open Approach (ICD-10-PCS; principal; 2023-03-14 10:30)
DX: E11.621 Type 2 diabetes mellitus with foot ulcer (principal); L02.611 Cutaneous abscess of right foot; L03.115 Cellulitis of right lower limb; L97.516 Non-pressure chronic ulcer of other part of right foot with bone involvement without evidence of necrosis; M86.9 Osteomyelitis, unspecified; M84.477A Pathological fracture, right toe(s), initial encounter for fracture; Z16.29 Resistance to other single specified antibiotic; B95.1 Streptococcus, group B, as the cause of diseases classified elsewhere; E11.65 Type 2 diabetes mellitus with hyperglycemia; E11.42 Type 2 diabetes mellitus with diabetic polyneuropathy; E11.69 Type 2 diabetes mellitus with other specified complication; I10 Essential (primary) hypertension; E03.9 Hypothyroidism, unspecified; F17.210 Nicotine dependence, cigarettes, uncomplicated; Z79.4 Long term (current) use of insulin; Z79.890 Hormone replacement therapy; Z79.899 Other long term (current) drug therapy
CPT/HCPCS: 36415; 73630; 80053; 80202; 82948; 83036; 83605; 85025; 85027; 85610; 85652; 85730; 86140; 87040; 87070; 87150; 87205; 93005; 93971; 96365; 96366; 96367; 96368; 96372; 97116; 97161; 97165; 97530; 99285; 99999; J2704; J3370

== ENCOUNTER 2023-03-19 09:21 | Outpatient (OUT) | payer BC, SELFPAY | END 2023-03-19 09:22 | disposition home or self-care (01) | LOC: WC 09:21 | PROVIDERS: PCP Family Medicine; Visit Provider Podiatrist Foot & Ankle Surgery | DX: E11.621 Type 2 diabetes mellitus with foot ulcer (principal); L97.514 Non-pressure chronic ulcer of other part of right foot with necrosis of bone | CPT/HCPCS: G0463 ==

== ENCOUNTER 2023-03-21 14:41 | Outpatient (OUT) | payer BC, SELFPAY | END 2023-03-21 14:42 | disposition home or self-care (01) | LOC: PST 14:41 | PROVIDERS: PCP Family Medicine; Visit Provider Podiatrist Foot & Ankle Surgery | DX: Z01.818 Encounter for other preprocedural examination (principal); M86.471 Chronic osteomyelitis with draining sinus, right ankle and foot; L97.514 Non-pressure chronic ulcer of other part of right foot with necrosis of bone ==

== ENCOUNTER 2023-03-22 08:31 | Outpatient (OUT) | payer BC, SELFPAY | END 2023-03-22 08:32 | disposition home or self-care (01) | LOC: WC 08:31 | PROVIDERS: PCP Family Medicine; Visit Provider Podiatrist Foot & Ankle Surgery | DX: E11.621 Type 2 diabetes mellitus with foot ulcer (principal); L97.514 Non-pressure chronic ulcer of other part of right foot with necrosis of bone | CPT/HCPCS: G0463 ==

== ENCOUNTER 2023-03-25 07:20 | Day surgery (SDC) | payer BC, SELFPAY ==
[2023-03-25] VITALS (9 sets, daily range): BP systolic 106–144; BP diastolic 69–98; PULSE 68–98; RESP 14–20; TEMP 36.4–36.6; O2SAT 97–100; BMI 23.4
[2023-03-25 07:46] LABS: Glucometer 191 mg/dL (74-106)
[2023-03-25] MEDS: LACTATED RINGER'S SOLUTION 1,000 ML 50 ML IV (08:08)
[2023-03-25] MEDS: CEFAZOLIN SODIUM/DEXTROSE,ISO 2 GM/50 ML PIGGYBACK IV (08:47)
--- NOTE | 2023-03-25 09:37 | PM.ORONB ---
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 Bone was discolored and soft. Small amount of necrotic soft tissue plantar to the hallux interphalangeal joint. Following debridement the wound edges and remaining bone did bleed appropriately. No purulence or evidence of acute infection. although skin edges bled appropriately following the procedure his great toe had sluggish capillary refill. Procedure in detail: Patient was identified in pre op and consent was reviewed. Correct side and site were identified and marked. Pre-op antibiotics were started. Patient was brought to OR suite and place on table in a supine position. General anesthesia was administered. Tourniquet applied. Operative extremity was prepped and draped in usual sterile fashion. Formal time-out was performed and the foot/ankle were exsanguinated and tourniquet inflated. With attention to the hallux a ulceration was excised then extended distally and proximally. Sharp dissection was taken down to bone and debridement of all nonviable and questionable soft tissue was performed. Small amount of necrotic soft tissue is noted plantar to the interphalangeal joint. Then a rongeur was used to remove the head of the proximal phalanx. Rongeur was used to remove all discolored and soft bone. The tourniquet was then deflated and the surgical site was irrigated with 3 L of normal saline on pulse lavage then the wound was inspected again noting hyperemic response to the wound edges and bleeding bone remaining. Clean rongeur was used to obtain a specimen from the proximal phalanx which was sent to microbiology. The wound was then partially closed with skin suture. The remaining open wound was then packed with quarter inch sterile packing a bulky dry sterile dressing was then placed Once hemostasis was obtained stockinette was placed over the operative extremity followed by foam padding to pad all bony prominences then a total contact cast using the TCC-EZ system was placed accordingly. The foot and ankle were held in a neutral position while the cast dry. Patient was then transported to recovery room with vital signs stable. Postoperative plan: Discharge home under family's care Post op instructions provided verbally and written prescription(s) were placed in chart weightbearing as tolerated in total contact cast Follow-up in 5 days for cast change Implants: none Anesthesia: General-LMA Surgeon: Bandar Mishra Counter Tacker: Ryan Castillo Estimated blood loss (mL): 10 Pathology: other (bone from distal phalanx to micro & path) Condition: stable Disposition: PACU Preoperative Details Reason for procedure: patient is a 37-year-old uncontrolled diabetic male with 25 pack year history of smoking. He 1st presented to us on 03/13 at which time he presented to the emergency department due to infection of his right great toe. He underwent incision and debridement with Dr. Castillo. He was placed on oral antibiotics and followed up in the wound center. At that time he had no acute signs of infection but exposed proximal phalanx through his right great toe ulcer. I discussed multiple treatment options which included conservative measures such as local wound care and offloading and prolonged antibiotics versus bone debridement in hopes of saving his toe versus toe amputation. After discussing the potential risks and benefits of each treatment option patient elected to undergo bone debridement. He was educated all potential risks and benefits particularly failure of wound to heal or infection recurrence and that he is at very high risk for great toe amputation. He is educated on smoking cessation as well as diabetic control which will aid in tissue healing. All questions were answered to satisfaction
[2023-03-25] MEDS: BUPIVACAINE HCL 0.5% PF 50 MG/10 ML VIAL INJ (09:39)
--- NOTE | 2023-03-25 10:07 | XR_ITS ---
The [address] [address] Patient Name: NELLY WARD MRN: [id number] date: 1985 Sex: M Assigned Patient Location: SURGOUT Current Patient Location: Accession/Order Number: [id number] Exam Date: 03/25/2023 10:20 Report Date: 03/25/2023 23:29 At the request of: ASHLYN BARAJAS Procedure: XR foot RT min 3V EXAM: XR foot RT min 3V HISTORY: postop xr pacu COMPARISON: 03/14/2023 TECHNIQUE: 3 view study FINDINGS: The distal aspect of the proximal phalanx and the proximal aspect of the distal phalanx of the great toe have been resected. Other bony structures are intact. Soft tissue swelling about the great toe is noted, with associated bandage material. XR/XR foot RT min 3V IMPRESSION: Postoperative study documenting debridement of the great toe. Electronically authenticated by: Tigist DAS Date: 03/25/2023 23:29
[2023-03-25 10:45] LABS: Glucometer 160 mg/dL (74-106)
== END 2023-03-25 10:56 | disposition home or self-care (01) ==
PROVIDERS: PCP Family Medicine; Visit Provider Podiatrist Foot & Ankle Surgery
PROC: (CPT 28005; principal; 2023-03-25 08:20)
DX: E11.621 Type 2 diabetes mellitus with foot ulcer (principal); L97.514 Non-pressure chronic ulcer of other part of right foot with necrosis of bone; E11.69 Type 2 diabetes mellitus with other specified complication; M86.171 Other acute osteomyelitis, right ankle and foot; Z79.4 Long term (current) use of insulin; E78.00 Pure hypercholesterolemia, unspecified; I10 Essential (primary) hypertension; E03.9 Hypothyroidism, unspecified
CPT/HCPCS: 28005; 36415; 73630; 82948; 87070; 87102; 87116; 87206; 88305; 88311; 99999; J2704

== ENCOUNTER 2023-03-29 10:54 | Outpatient (OUT) | payer BC, SELFPAY | END 2023-03-29 10:55 | disposition home or self-care (01) | LOC: WC 10:54 | PROVIDERS: PCP Family Medicine; Visit Provider Podiatrist Foot & Ankle Surgery | DX: E11.621 Type 2 diabetes mellitus with foot ulcer (principal); L97.514 Non-pressure chronic ulcer of other part of right foot with necrosis of bone | CPT/HCPCS: 29445 ==

== ENCOUNTER 2023-04-05 10:32 | Outpatient (OUT) | payer BC, SELFPAY | END 2023-04-05 10:33 | disposition home or self-care (01) | LOC: WC 10:32 | PROVIDERS: PCP Family Medicine; Visit Provider Podiatrist Foot & Ankle Surgery | DX: E11.621 Type 2 diabetes mellitus with foot ulcer (principal); L97.514 Non-pressure chronic ulcer of other part of right foot with necrosis of bone | CPT/HCPCS: 29445 ==

== ENCOUNTER 2023-04-12 11:30 | Outpatient (OUT) | payer BC, SELFPAY | END 2023-04-12 11:31 | disposition home or self-care (01) | LOC: WC 11:30 | PROVIDERS: PCP Family Medicine; Visit Provider Podiatrist Foot & Ankle Surgery | DX: E11.621 Type 2 diabetes mellitus with foot ulcer (principal); L97.514 Non-pressure chronic ulcer of other part of right foot with necrosis of bone; L97.528 Non-pressure chronic ulcer of other part of left foot with other specified severity | CPT/HCPCS: 11042; 29445 ==

== ENCOUNTER 2023-04-17 10:26 | Outpatient (OUT) | payer BC, SELFPAY | END 2023-04-17 10:27 | disposition home or self-care (01) | LOC: WC 10:26 | PROVIDERS: PCP Family Medicine; Visit Provider Podiatrist Foot & Ankle Surgery | DX: E11.621 Type 2 diabetes mellitus with foot ulcer (principal); L97.514 Non-pressure chronic ulcer of other part of right foot with necrosis of bone; L97.528 Non-pressure chronic ulcer of other part of left foot with other specified severity | CPT/HCPCS: 29445 ==

== ENCOUNTER 2023-04-24 10:56 | Outpatient (OUT) | payer BC, SELFPAY | END 2023-04-24 10:57 | disposition home or self-care (01) | LOC: WC 10:56 | PROVIDERS: PCP Family Medicine; Visit Provider Podiatrist Foot & Ankle Surgery | DX: E11.621 Type 2 diabetes mellitus with foot ulcer (principal); L97.514 Non-pressure chronic ulcer of other part of right foot with necrosis of bone; L97.528 Non-pressure chronic ulcer of other part of left foot with other specified severity | CPT/HCPCS: 11042; 29445 ==

== ENCOUNTER 2023-05-01 11:09 | Outpatient (OUT) | payer BC, SELFPAY | END 2023-05-01 11:10 | disposition home or self-care (01) | LOC: WC 11:09 | PROVIDERS: PCP Family Medicine; Visit Provider Podiatrist Foot & Ankle Surgery | DX: E11.621 Type 2 diabetes mellitus with foot ulcer (principal); L97.514 Non-pressure chronic ulcer of other part of right foot with necrosis of bone | CPT/HCPCS: 11042 ==

== ENCOUNTER 2023-05-15 11:32 | Outpatient (OUT) | payer BC, SELFPAY ==
--- NOTE | 2023-05-15 | XR_ITS ---
The [address] [address] Patient Name: NELLY WARD MRN: [id number] date: 1985 Sex: M Assigned Patient Location: Current Patient Location: Accession/Order Number: [id number] Exam Date: 05/15/2023 11:48 Report Date: 05/16/2023 13:35 At the request of: NICO ALCALA Procedure: XR foot RT min 3V PROCEDURE: XR foot RT min 3V DATE: 05/15/2023 10:48 AM [facility] PHYSICIAN COMPARISONS: Right foot 03/25/2023 CLINICAL INDICATION: RIGHT FOOT ULCER FINDINGS: It is reported that there has been surgery in the region of the first interphalangeal joint. The images of 03/25/2023 reportedly were postop images.. Today's images show the proximal aspect of the postop site to be heterogeneous with lucency and irregularity. This was not seen on 03/25/2023. A similar finding was seen in the proximal aspect of the first distal phalanx but some of this was present previously. XR/XR foot RT min 3V IMPRESSION: Today's plain radiographs show findings suspicious for ongoing/active osteomyelitis in this area. I realize that there has been surgery in this area but the lucency, destruction and heterogeneity of the osseous structures are quite suspicious for osteomyelitis. Electronically authenticated by: JOSEFA RAJAN Date: 05/16/2023 13:35
--- OUTSIDE RECORDS SUMMARY | 2023-05-15 11:44 | XMS_ITS | CCD ---
Author Name Unknown Address [address] [facility] [address] [place] [address] Organization [facility] Care Team Providers Care Dye Reel Operator Name Role Phone DR JULIETA SIMENTAL Consulting Unavailable GUADALUPE, DR ANA Guerrero Admitting Unavailable MISC, DR CORONA Primary Care Unavailable COLLINS, DR ANA Guerrero Attending Unavailable COLLINS, DR ANA Guerrero Consulting Unavailable WEST, DR ANAY Mcdonough Consulting Unavailable MARKER, DR KAISER Consulting Unavailable SAMSA, ASHLYN Consulting Unavailable FAWWADSHAIKH Consulting Unavailable COLLINS, DR ANA Guerrero Attending Unavailable COLLINS, DR ANA Guerrero Consulting Unavailable MISC, DR CORONA Primary Care Unavailable COLLINS, DR ANA Guerrero Admitting Unavailable ROOSEVELT, DR ANAY Mcdonough Consulting Unavailable Problems Problem Classification Problem Date Documented Da te Episodic/Chronic Acute and unspecified renal failure (1 source) Acute kidney failure, unspecified; Translations: [ACUTE KIDNEY FAILURE UNSPECIFIED] Onset: 08-23-2021 Episodic Diabetes mellitus with complications (8 sources) Type 2 diabetes mellitus with diabetic autonomic (poly)neuropathy; Translations: [Type 1 diabetes mellitus with ketoacidosis without coma] Onset: 08-17-2021 Chronic Diseases of white blood cells (1 source) Elevated white blood cell count, unspecified; Translations: [ELEVATED WHITE BLOOD CELL COUNT UNS] Onset: 08-23-2021 Chronic Disorders of lipid metabolism (1 source) Hyperlipidemia, unspecified; Translations: [HYPERLIPIDEMIA UNSPECIFIED] Onset: 08-23-2021 Chronic Esophageal disorders (1 source) Gastro-esophageal reflux disease without esophagitis; Translations: [GERD WITHOUT ESOPHAGITIS] Onset: 08-23-2021 Chronic Essential hypertension (1 source) Essential (primary) hypertension; Translations: [ESSENTIAL PRIMARY HYPERTENSION] Onset: 08-23-2021 Chronic Fluid and electrolyte disorders (1 source) Dehydration; Translations: [DEHYDRATION] Onset: 08-23-2021 Episodic Nausea and vomiting (1 source) Nausea with vomiting, unspecified; Translations: [NAUSEA WITH VOMITING UNSPECIFIED] Onset: 08-23-2021 Episodic Other aftercare (1 source) USP (current) use of insulin; Translations: [ALL ROUND BUTCHER CURRENT USE OF INSULIN] Onset: 08-23-2021 Episodic Other aftercare (1 source) Other custodial (current) drug therapy; Translations: [OTH SENIOR CARE CURRENT DRUG THERAPY] Onset: 08-23-2021 Episodic Other disorders of stomach and duodenum (1 source) Gastroparesis; Translations: [GASTROPARESIS] Onset: 08-23-2021 Episodic Other gastrointestinal disorders (1 source) Irritable bowel syndrome without diarrhea; Translations: [IRRITABLE BOWEL SYND W/O DIARRHEA] Onset: 08-23-2021 Chronic Other liver diseases (1 source) Abnormal levels of other serum enzymes; Translations: [ABNORMAL LEVELS OTHER SERUM ENZYMES] Onset: 08-23-2021 Episodic Other nutritional; endocrine; and metabolic disorders (1 source) Hypocalcemia; Translations: [HYPOCALCEMIA] Onset: 08-23-2021 Chronic Residual codes; unclassified (1 source) Other problems related to lifestyle; Translations: [OTHER PROBLEMS RELATED TO LIFESTYLE] Onset: 08-23-2021 Episodic Substance-related disorders (1 source) Nicotine dependence, cigarettes, uncomplicated; Translations: [NICOTINE DEPEND CIGARETTES UNCOMP] Onset: 08-23-2021 Chronic Thyroid disorders (1 source) Hypothyroidism, unspecified; Translations: [HYPOTHYROIDISM UNSPECIFIED] Onset: 08-23-2021 Chronic Unclassified (1 source) PERSONAL HISTORY OF COVID-19; Translations: [PERSONAL HISTORY OF COVID-19] Onset: 08-23-2021 Unclassified (1 source) CONTACT W/AND (SUSP) EXPOS COVID-19; Translations: [CONTACT W/AND (SUSP) EXPOS COVID-19] Onset: 08-23-2021 Results Test Name Value Interpretation Reference Range Facil ity XR SMALL BOWEL FOLLOW THOUGH on 08-21-2021 XR SMALL BOWEL FOLLOW THOUGH EXAMINATION: XR SMALL BOWEL FOLLOW THOUGH HISTORY: Gastroparesis due to diabetes mellitus COMPARISON: No relevant comparison available. FLUOROSCOPY TIME: Fluoro time measures 0.3 minutes and 5 images were obtained. TECHNIQUE: Small bowel series was performed in the usual manner. No wheat shipper abdominal radiograph was performed. Standard level fluoroscopic mode of operation utilized. FINDINGS: DUODENUM: Normal. No ulceration or diverticulum. JEJUNUM: Normal. Normal motility. No obstruction or visible lesion. ILEUM: Normal. Normal motility. No obstruction or visible lesion. OTHER: Moderate foodstuffs distention of the stomach. Small bowel transit time between 30 and 45 minutes IMPRESSION: Moderate foodstuffs distention of the stomach Normal small bowel transit time Electronically authenticated by: ANAY ALBERT Date: 2021-08-21 10:08 Normal [facility] l CBC AUTO DIFFon 08-20-2021 BASO # 0.1 103/ul Normal 0.0-0.1 [facility] Comment on above: Performed By: #### P OCGLUC #### [facility] [address] [place] [address] Dr. Michael Wynne Basophils/100 WBC (Bld) 0.5 % Normal 0.2-2.0 [facility] Comment on above: Performed By: #### P OCGLUC #### [facility] [address] [place] [address] Dr. Michael Wynne EO # 0.1 103/ul Normal 0.0-0.7 [facility] [place] [facility] Comment on above: Performed By: #### P OCGLUC #### [facility] [address] [place] [address] Dr. Michael Wynne Eosinophils/100 WBC (Bld) 0.9 % Normal 0.9-7.0 [facility] Comment on above: Performed By: #### P OCGLUC #### [facility] [address] [place] [address] Dr. Michael Wynne Erythrocyte distribution wid th (RBC) [Ratio] 11.9 % Normal 11.0-15.[address] [facility] Comment on above: Performed By: #### P OCGLUC #### [facility] [address] [place] [address] Dr. Michael Wynne Hematocrit (Bld) [Volume fraction] 40.1 % Critically low 42.0-54.[address] [facility] Comment on above: Performed By: #### P OCGLUC #### [facility] [address] [place] [address] Dr. Michael Wynne Hemoglobin (Bld) [Mass/Vol] 14.1 g/dL Normal 14.0-18. 0 [facility] Comment on above: Performed By: #### P OCGLUC #### [facility] [address] [place] [address] Dr. Michael Wynne IG # 0.02 10e3/ul Normal 0.00-0.03 [facility] Comment on above: Performed By: #### P OCGLUC #### [facility] [address] [place] [address] Dr. Michael Wynne IG % 0.2 % Normal 0.0-0.5 [facility] Comment on above: Performed By: #### P OCGLUC #### [facility] [address] [place] [address] Dr. Michael Wynne LYMPH # 2.5 103/ul Normal 1.2-3.8 [facility] Comment on above: Performed By: #### P OCGLUC #### [facility] [address] [place] [address] Dr. Michael Wynne Lymphocytes/100 WBC (Bld) 25.4 % Normal 20.5-60.0 [facility] Comment on above: Performed By: #### P OCGLUC #### [facility] [address] [place] [address] Dr. Michael Wynne MANUAL DIFF REQ NO Normal [facility] Comment on above: Performed By: #### P OCGLUC #### [facility] [address] [place] [address] Dr. Michael Wynne MCH (RBC) [Entitic mass] 31.5 pg Normal 25.9-34.0 [facility] Comment on above: Performed By: #### P OCGLUC #### [facility] [address] [place] [address] Dr. Michael Wynne MCHC (RBC) [Mass/Vol] 35.2 g/dL Normal 29.9-35.2 [facility] Comment on above: Performed By: #### P OCGLUC #### [facility] [address] [place] [address] Dr. Michael Wynne MCV (RBC) [Entitic vol] 89.5 fL Normal 80.0-94.0 [facility] Comment on above: Performed By: #### P OCGLUC #### [facility] [address] [place] [address] Dr. Michael Wynne MONO # 0.8 103/ul Normal 0.3-0.8 [facility] [place] [facility] Comment on above: Performed By: #### P OCGLUC #### [facility] [address] [place] [address] Dr. Michael Wynne Monocytes/100 WBC (Bld) 7.8 % Normal 1.7-12.0 [facility] Comment on above: Performed By: #### P OCGLUC #### [facility] [address] [place] [address] Dr. Michael Wynne NEUT # 6.5 103/ul Normal 1.4-6.5 [facility] [place] [facility] Comment on above: Performed By: #### P OCGLUC #### [facility] [address] [place] [address] Dr. Michael Wynne Neutrophils/100 WBC (Bld) 65.2 % Normal 43.0-75.0 [facility] Comment on above: Performed By: #### P OCGLUC #### [facility] [address] [place] [address] Dr. Michael Wynne Platelet mean volume (Bld) [ Entitic vol] 10.3 fL Normal 9.5-13.5 [facility] Comment on above: Performed By: #### P OCGLUC #### [facility] [address] [place] [address] Dr. Michael Wynne PLT 234 103/ul Normal 150-450 [facility] Comment on above: Performed By: #### P OCGLUC #### [facility] [address] [place] [address] Dr. Michael Wynne RBC 4.48 106/ul Critically low 4.70-6.10 [facility] Comment on above: Performed By: #### P OCGLUC #### [facility] [address] [place] [address] Dr. Michael Wynne WBC 9.9 103/ul Normal 4.0-11.0 [facility] [place] [facility] Comment on above: Performed By: #### P OCGLUC #### [facility] [address] [address] [address] Michael Wynne PROF CHEM 8 (BAS METB)on Anion gap [Moles/Vol] 8.1 mmol/L Normal [facility] Comment on above: Performed By: #### P OCGLUC #### [facility] [address] [address] [address] Michael Wynne Calcium [Mass/Vol] 7.7 mg/dL Critically low 8.5-10.1 [facility] Comment on above: Performed By: #### P OCGLUC #### [facility] [address] [place] [address] Dr. Michael Wynne Chloride [Moles/Vol] 102 mmol/L Normal 98-107 [facility] Comment on above: Performed By: #### P OCGLUC #### [facility] [address] [address] [address] Michael Wynne CO2 [Moles/Vol] 29.2 mmol/L Normal 22.0-30.0 [facility] Comment on above: Performed By: #### P OCGLUC #### [facility] [address] [address] [address] Michael Wynne Creatinine [Mass/Vol] 0.83 mg/dL Normal 0.66-1.25 [facility] Comment on above: Performed By: #### P OCGLUC #### [facility] [address] [address] [address] Michael Wynne EGFR-AF MONTENEGRIN >60 Normal >=60 [facility] Comment on above: Performed By: #### P OCGLUC #### [facility] [address] [address] [address] Michael Wynne EGFR-NON AF MONTENEGRIN >60 Normal >=60 [facility] Comment on above: Performed By: #### P OCGLUC #### [facility] [address] [place] [address] Dr. Michael Wynne Glucose [Mass/Vol] 265 mg/dL Critically high 74-106 [facility] Comment on above: Performed By: #### P OCGLUC #### [facility] [address] [address] [address] Michael Wynne Potassium [Moles/Vol] 3.3 mmol/L Critically low 3.4-5.0 [facility] Comment on above: Performed By: #### P OCGLUC #### [facility] [address] [address] [address] Michael Wynne Sodium [Moles/Vol] 136 mmol/L Critically low 137-145 [facility] Comment on above: Performed By: #### P OCGLUC #### [facility] [address] [address] [address] Michael Wynne Urea nitrogen [Mass/Vol] 14.0 mg/dL Normal 7.0-18.0 [facility] Comment on above: Performed By: #### P OCGLUC #### [facility] [address] [place] [address] Dr. Michael Wynne Urea nitrogen/Creatinine [Mass ratio] 16.9 mg/mg Normal [facility] Comment on above: Performed By: #### P OCGLUC #### [facility] [address] [address] [address] Michael Wynne CBC AUTO DIFFon 08-19-2021 BASO # 0.0 103/ul Normal 0.0-0.1 [facility] Comment on above: Performed By: #### C BC ####[facility] [address] [address]Dr. Michael Wynne Basophils/100 WBC (Bld) 0.2 % Normal 0.2-2.0 [facility] Comment on above: Performed By: #### C BC ####[facility] [address] [address]Dr. Michael Wynne EO # 0.0 103/ul Normal 0.0-0.7 [facility] Comment on above: Performed By: #### C BC ####[facility] [address] [address]Dr. Michael Wynne Eosinophils/100 WBC (Bld) 0.0 % Critically low 0.9-7. 0 [facility] Comment on above: Performed By: #### C BC ####[facility] [address] [id number]. Michael Wynne Erythrocyte distribution wid th (RBC) [Ratio] 11.9 % Normal 11.0-15.[address] [facility] Comment on above: Performed By: #### C BC ####[facility] [address] [place], [place] [address]Dr. Michael Wynne Hematocrit (Bld) [Volume fraction] 41.5 % Critically low 42.0-54.[address] [facility] Comment on above: Performed By: #### C BC ####[facility] [address] [place], [place] [address]Dr. Michael Wynne Hemoglobin (Bld) [Mass/Vol] 14.5 g/dL Normal 14.0-18. 0 [facility] Comment on above: Performed By: #### C BC ####[facility] [address] [place], [place] [address]Dr. Michael Wynne IG # 0.11 10e3/ul Critically high 0.00-0.03 The [facility] Comment on above: Performed By: #### C BC ####[facility] [address] [place], [place] [address]Dr. Michael Wynne IG % 0.6 % Critically high 0.0-0.5 [facility] Comment on above: Performed By: #### C BC ####[facility] [address] [address]Dr. Michael Wynne LYMPH # 1.7 103/ul Normal 1.2-3.8 [facility] Comment on above: Performed By: #### C BC ####[facility] [address] [place], [place] [address]Dr. Michael Wynne Lymphocytes/100 WBC (Bld) 9.2 % Critically low 20.5-6 0.0 [facility] Comment on above: Performed By: #### C BC ####[facility] [address] [id number]. Michael Wynne MANUAL DIFF REQ NO Normal [facility] Comment on above: Performed By: #### C BC ####[facility] [address] [address]Dr. Michael Wynne MCH (RBC) [Entitic mass] 31.0 pg Normal 25.9-34.0 [facility] Comment on above: Performed By: #### C BC ####[facility] [address] [address]Dr. Michael Wynne MCHC (RBC) [Mass/Vol] 34.9 g/dL Normal 29.9-35.2 [facility] Comment on above: Performed By: #### C BC ####[facility] [address] [address]Dr. Michael Wynne MCV (RBC) [Entitic vol] 88.7 fL Normal 80.0-94.0 [facility] Comment on above: Performed By: #### C BC ####[facility] [address] [id number]. Michael Wynne MONO # 1.1 103/ul Critically high 0.3-0.8 [facility] Comment on above: Performed By: #### C BC ####[facility] [address] [place], [place] [address]Dr. Michael Wynne Monocytes/100 WBC (Bld) 5.7 % Normal 1.7-12.0 [facility] Comment on above: Performed By: #### C BC ####[facility] [address] [id number]. Michael Wynne NEUT # 15.9 103/ul Critically high 1.4-6.5 [facility] Comment on above: Performed By: #### C BC ####[facility] [address] [address]Dr. Michael Wynne Neutrophils/100 WBC (Bld) 84.3 % Critically high 43.0- 75.0 [facility] Comment on above: Performed By: #### C BC ####[facility] [address] [id number]. Marshapark Ricci Platelet mean volume (Bld) [ Entitic vol] 10.4 fL Normal 9.5-13.5 [facility]ital Comment on above: Performed By: #### C BC ####[facility] [address] [id number]. Michael Wynne PLT 284 103/ul Normal 150-450 The [facility] [place] [facility] Comment on above: Performed By: #### C BC ####[facility] [address] [address]Dr. Michael Wynne RBC 4.68 106/ul Critically low 4.70-6.10 [facility] Comment on above: Performed By: #### C BC ####[facility] [address] [address]Dr. Michael Wynne WBC 18.8 103/ul Critically high 4.0-11.0 [facility] Comment on above: Performed By: #### C BC ####[facility] [address] [address]Dr. Michael Wynne CRPon 08-19-2021 CRP [Mass/Vol] mg/L Normal <=1.0 [facility] Comment on above: Performed By: #### C RP, TSH, FT3 #### [facility] [address] [address] [address] Michael Wynne FREE T3on 08-19-2021 FREE T3 1.19 pg/mlL Critically low 2.77-5.27 [facility] Comment on above: Performed By: #### C RP, TSH, FT3 #### [facility] [address] [address] [address] Michael Wynne FREE T4on 08-19-2021 Free T4 [Mass/Vol] 1.13 ng/dL Normal 0.78-2.19 [facility] Comment on above: Performed By: #### F T4 ####[facility] [address] [id number]. Marshapark Ricci LIVER PROFILEon 08-19-2021 Albumin [Mass/Vol] 3.2 g/dL Critically low 3.4-5.0 Th [facility] Comment on above: Performed By: #### L IVER ####[facility] [address] [id number]. Marshapark Ricci Albumin/Globulin [Mass ratio] 0.9 {ratio} Normal [facility] Comment on above: Performed By: #### L IVER ####[facility] [address] [address]Dr. Michael Wynne ALP [Catalytic activity/Vol] 96 U/L Normal 46-116 [facility] Comment on above: Performed By: #### L IVER ####[facility] [address] [place], [place] [address]Dr. Michael Wynne ALT [Catalytic activity/Vol] 31 U/L Normal 16-63 [facility] Comment on above: Performed By: #### L IVER ####[facility] [address] [place], [place] [address]Dr. Michael Wynne AST [Catalytic activity/Vol] 18 U/L Normal 15-37 [facility] Comment on above: Performed By: #### L IVER ####[facility] [address] [place], [place] [address]Dr. Michael Wynne BILI, CONJUGATED 0.3 mg/dL Normal 0.0-0.3 [facility] Comment on above: Performed By: #### L IVER ####[facility] [address] [place], [place] [address]Dr. Michael Wynne Bilirubin [Mass/Vol] 1.7 mg/dL Critically high 0.2-1.3 [facility] Comment on above: Performed By: #### L IVER ####[facility] [address] [place], [place] [address]Dr. Michael Wynne Globulin (S) [Mass/Vol] 3.4 g/dL Normal T [facility] Comment on above: Performed By: #### L IVER ####[facility] [address] [place], [place] [address]VvDr. Michael Wynne Protein [Mass/Vol] 6.6 g/dL Normal 6.1-8.2 [facility] Comment on above: Performed By: #### L IVER ####[facility] [address] [place], [place] [address]Dr. Michael Wynne PROF CHEM 8 (BAS METB)on Anion gap [Moles/Vol] 10.2 mmol/L Normal [facility] Comment on above: Performed By: #### P OCGLUC #### [facility] [address] [address] [address] Michael Wynne Calcium [Mass/Vol] 8.4 mg/dL Critically low 8.5-10.1 [facility] Comment on above: Performed By: #### P OCGLUC #### [facility] [address] [address] [address] Michael Wynne Chloride [Moles/Vol] 99 mmol/L Normal 98-107 [facility] Comment on above: Performed By: #### P OCGLUC #### [facility] [address] [address] [address] Michael Wynne CO2 [Moles/Vol] 30.7 mmol/L Critically high 22.0-30.0 [facility] Comment on above: Performed By: #### P OCGLUC #### [facility] [address] [address] [address] Michael Wynne Creatinine [Mass/Vol] 0.89 mg/dL Normal 0.66-1.25 [facility] Comment on above: Performed By: #### P OCGLUC #### [facility] [address] [address] [address] Michael Wynne EGFR-AF MONTENEGRIN >60 Normal >=60 [facility] Comment on above: Performed By: #### P OCGLUC #### [facility] [address] [address] [address] Michael Wynne EGFR-NON AF MONTENEGRIN >60 Normal >=60 [facility] Comment on above: Performed By: #### P OCGLUC #### [facility] [address] [address] [address] Michael Wynne Glucose [Mass/Vol] 235 mg/dL Critically high 74-106 [facility] Comment on above: Performed By: #### P OCGLUC #### [facility] [address] [address] [address] Michael Wynne Potassium [Moles/Vol] 3.9 mmol/L Normal 3.4-5.0 [facility] Comment on above: Performed By: #### P OCGLUC #### [facility] [address] [address] [address] Michael Wynne Sodium [Moles/Vol] 136 mmol/L Critically low 137-145 [facility] Comment on above: Performed By: #### P OCGLUC #### [facility] [address] [address] [address] Michael Wynne Urea nitrogen [Mass/Vol] 19.0 mg/dL Critically high 7.0-18 .0 [facility] Comment on above: Performed By: #### P OCGLUC #### [facility] [address] [address] [address] Michael Wynne Urea nitrogen/Creatinine [Mass ratio] 21.3 mg/mg Normal [facility] Comment on above: Performed By: #### P OCGLUC #### [facility] [address] [address] [address] Michael Wynne Anion gap [Moles/Vol] 13.8 mmol/L Normal [facility] Comment on above: Performed By: #### B MP ####[facility] [address] [address]Dr. Michael Wynne Calcium [Mass/Vol] 8.4 mg/dL Critically low 8.5-10.1 [facility] Comment on above: Performed By: #### B MP ####[facility] [address] [id number]. Michael Wynne Chloride [Moles/Vol] 97 mmol/L Critically low 98-107 [facility] Comment on above: Performed By: #### B MP ####[facility] [address] [id number]. Michael Wynne CO2 [Moles/Vol] 27.3 mmol/L Normal 22.0-30.0 [facility] Comment on above: Performed By: #### B MP ####[facility] [address] [id number]. Michael Wynne Creatinine [Mass/Vol] 1.00 mg/dL Normal 0.66-1.25 [facility] Comment on above: Performed By: #### B MP ####[facility] [facility] [id number] [id number]. Michael Wynne EGFR-AF MONTENEGRIN >60 Normal >=60 [facility] Comment on above: Performed By: #### B MP ####[facility] [address] [place], [place] [address]Dr. Michael Wynne EGFR-NON AF MONTENEGRIN >60 Normal >=60 [facility] Comment on above: Performed By: #### B MP ####[facility] K[address]lu[address]ury[address] [place], [place] [address]Dr. Michael Wynne Glucose [Mass/Vol] 288 mg/dL Critically high 74-106 T [facility] Comment on above: Performed By: #### B MP ####[facility] Jayulvdwzg[address] [place], [place] [address]Dr. Michael Wynne Potassium [Moles/Vol] 4.1 mmol/L Normal 3.4-5.0 [facility] Comment on above: Performed By: #### B MP ####[facility] [address] [place] [address]Dr. Michael Wynne Sodium [Moles/Vol] 134 mmol/L Critically low 137-145 Th [facility] Comment on above: Performed By: #### B MP ####[facility] [address]fc[address] [place], [place] [address]Dr. Michael Wynne Urea nitrogen [Mass/Vol] 20.0 mg/dL Critically high 7.0-18 .0 [facility] Comment on above: Performed By: #### B MP ####[facility] Phsrtuplyq[address] [place], [place] [address]Dr. Michael Wynne Urea nitrogen/Creatinine [Mass ratio] 20.0 mg/mg Normal [facility] Comment on above: Performed By: #### B MP ####[facility] [address]ls[address] [place] [address]Dr. Michael Wynne Anion gap [Moles/Vol] 13.0 mmol/L Normal [facility] Comment on above: Performed By: #### B MP #### [facility] [address] [address] [address] Michael Wynne Calcium [Mass/Vol] 7.9 mg/dL Critically low 8.5-10.1 [facility] Comment on above: Performed By: #### B MP #### [facility] [address] [address] [address] Michael Wynne Chloride [Moles/Vol] 98 mmol/L Normal 98-107 [facility] Comment on above: Performed By: #### B MP #### [facility] [address] [address] [address] Michael Wynne CO2 [Moles/Vol] 28.0 mmol/L Normal 22.0-30.0 [facility] Comment on above: Performed By: #### B MP #### [facility] [address] [address] [address] Michael Wynne Creatinine [Mass/Vol] 0.80 mg/dL Normal 0.66-1.25 [facility] Comment on above: Performed By: #### B MP #### [facility] [address] [address] [address] Michael Wynne EGFR-AF MONTENEGRIN >60 Normal >=60 [facility] Comment on above: Performed By: #### B MP #### [facility] [address] [address] [address] Michael Wynne EGFR-NON AF MONTENEGRIN >60 Normal >=60 [facility] Comment on above: Performed By: #### B MP #### [facility] [address] [address] [address] Michael Wynne Glucose [Mass/Vol] 266 mg/dL Critically high 74-106 [facility] Comment on above: Performed By: #### B MP #### [facility] [address] [address] [address] Michael Wynne Potassium [Moles/Vol] 4.0 mmol/L Normal 3.4-5.0 [facility] Comment on above: Performed By: #### B MP #### [facility] [address] [address] [address] Michael Wynne Sodium [Moles/Vol] 135 mmol/L Critically low 137-145 [facility] Comment on above: Performed By: #### B MP #### [facility] [address] [address] [address] Michael Wynne Urea nitrogen [Mass/Vol] 19.0 mg/dL Critically high 7.0-18 .0 [facility] Comment on above: Performed By: #### B MP #### [facility] [address] [address] [address] Michael Wynne Urea nitrogen/Creatinine [Mass ratio] 23.8 mg/mg Normal [facility] Comment on above: Performed By: #### B MP #### [facility] [address] [address] [address] Michael Wynne Anion gap [Moles/Vol] 15.2 mmol/L Normal [facility] Comment on above: Performed By: #### C VDTBH #### [facility] [address] [address] [address] Michael Wynne Calcium [Mass/Vol] 8.1 mg/dL Critically low 8.5-10.1 [facility] Comment on above: Performed By: #### C VDTBH #### [facility] [address] [address] [address] Michael Wynne Chloride [Moles/Vol] 97 mmol/L Critically low 98-107 [facility] Comment on above: Performed By: #### C VDTBH #### [facility] [address] [address] [address] Michael Wynne CO2 [Moles/Vol] 25.9 mmol/L Normal 22.0-30.0 [facility] Comment on above: Performed By: #### C VDTBH #### [facility] [address] [address] [address] Michael Wynne Creatinine [Mass/Vol] 0.98 mg/dL Normal 0.66-1.25 [facility] Comment on above: Performed By: #### C VDTBH #### [facility] [address] [address] [address] Michael Wynne EGFR-AF MONTENEGRIN >60 Normal >=60 [facility] Comment on above: Performed By: #### C VDTBH #### [facility] [address] [address] [address] Michael Wynne EGFR-NON AF MONTENEGRIN >60 Normal >=60 [facility] Comment on above: Performed By: #### C VDTBH #### [facility] [address] [address] [address] Michael Wynne Glucose [Mass/Vol] 313 mg/dL Critically high 74-106 T [facility] Comment on above: Performed By: #### C VDTBH #### [facility] [address] [address] [address] Michael Wynne Potassium [Moles/Vol] 4.1 mmol/L Normal 3.4-5.0 [facility] Comment on above: Performed By: #### C VDTBH #### [facility] [address] [address] [address] Michael Wynne Sodium [Moles/Vol] 134 mmol/L Critically low 137-145 Th [facility] Comment on above: Performed By: #### C VDTBH #### [facility] [address] [address] [address] Michael Wynne Urea nitrogen [Mass/Vol] 18.0 mg/dL Normal 7.0-18.0 [facility] Comment on above: Performed By: #### C VDTBH #### [facility] [address] [address] [address] Michael Wynne Urea nitrogen/Creatinine [Mass ratio] 18.4 mg/mg Normal [facility] Comment on above: Performed By: #### C VDTBH #### [facility] [address] [address] [address] Michael Wynne SED RATE WESTERGRENon 2021 SED RATE 13 mm/hr Normal <=15 [facility] [place] [facility] Comment on above: Performed By: #### P OCGLUC #### [facility] [address] [address] [address] Michael Wynne TSHon 08-19-2021 TSH 2.737 uIU/mL Normal 0.470-4.680 [facility] Comment on above: Performed By: #### C RP, TSH, FT3 #### [facility] [address] [place] [address] Dr. Michael Wynne TSH RANGE SEE BELOW Normal [facility] [place] [facility] Comment on above: Result Comment: <0.3 4 UIU/ml HYPERTHYROID 0.34-5.60 UIU/ml EUTHYROID >5.60 UIU/ml HYPOTHYROID Performed By: #### C RP, TSH, FT3 #### [facility] [address] [place] [address] Dr. Michael Wynne XR ABD FLAT_UPon 08-19-2021 XR ABD FLAT_UP EXAMINATION: XR ABD FLAT_UP HISTORY: nausea and vomiting COMPARISON: No relevant comparison available. FINDINGS: BOWEL GAS PATTERN: Non-obstructed. FREE AIR: None. CALCIFICATIONS: None significant. BONES: No fracture or visible bone lesion. OTHER: Negative. IMPRESSION: Nonobstructive bowel gas pattern Electronically authenticated by: ANAY ALBERT Date: 2021-08-19 13:32 Normal [facility] CBC AUTO DIFFon 08-18-2021 BASO # 0.0 103/ul Normal 0.0-0.1 [facility] [place] [facility] Comment on above: Performed By: #### C BC ####[facility] [address] [place] [address]Dr. Michael Wynne Basophils/100 WBC (Bld) 0.2 % Normal 0.2-2.0 [facility] Comment on above: Performed By: #### C BC ####[facility] [address] [place] [address]Dr. Michael Wynne EO # 0.0 103/ul Normal 0.0-0.7 [facility] [place] [facility] Comment on above: Performed By: #### C BC ####[facility] [address] [place], [place] [address]Dr. Michael Wynne Eosinophils/100 WBC (Bld) 0.0 % Critically low 0.9-7. 0 [facility] Comment on above: Performed By: #### C BC ####[facility] [address]at[address] [place], [place] [address]Dr. Michael Wynne Erythrocyte distribution wid th (RBC) [Ratio] 12.3 % Normal 11.0-15.[address] [facility] Comment on above: Performed By: #### C BC ####[facility] [address] [place], [place] [address]Dr. Michael Wynne Hematocrit (Bld) [Volume fraction] 40.0 % Critically low 42.0-54.[address] [facility] Comment on above: Performed By: #### C BC ####[facility] [address] [place], [place] [address]Dr. Michael Wynne Hemoglobin (Bld) [Mass/Vol] 14.3 g/dL Normal 14.0-18. 0 [facility] Comment on above: Performed By: #### C BC ####[facility] [address] [place], [place] [address]Dr. Michael Wynne IG # 0.32 10e3/ul Critically high 0.00-0.03 [facility] Comment on above: Performed By: #### C BC ####[facility] [address] [place], [place] [address]Dr. Michael Wynne IG % 1.2 % Critically high 0.0-0.5 [facility] Comment on above: Performed By: #### C BC ####[facility] [address] [place], [place] [address]Dr. Michael Wynne LYMPH # 1.4 103/ul Normal 1.2-3.8 [facility] [place] [facility] Comment on above: Performed By: #### C BC ####[facility] [address] [place] [id number]. Michael Wynne Lymphocytes/100 WBC (Bld) 5.4 % Critically low 20.5-6 0.0 [facility] Comment on above: Performed By: #### C BC ####[facility] [address] [place] [address]Dr. Michael Wynne MANUAL DIFF REQ NO Normal [facility] Comment on above: Performed By: #### C BC ####[facility] [address] [place], [place] [id number]. Michael Wynne MCH (RBC) [Entitic mass] 31.7 pg Normal 25.9-34.0 [facility] Comment on above: Performed By: #### C BC ####[facility] [address] [place], [place] [address]Dr. Michael Wynne MCHC (RBC) [Mass/Vol] 35.8 g/dL Critically high 29.9-35.2 [facility] Comment on above: Performed By: #### C BC ####[facility] [address] [place], [place] [address]Dr. Michael Wynne MCV (RBC) [Entitic vol] 88.7 fL Normal 80.0-94.0 [facility] Comment on above: Performed By: #### C BC ####[facility] [address]kw[address] [place], [place] [address]Dr. Michael Wynne MONO # 1.0 103/ul Critically high 0.3-0.8 [facility] Comment on above: Performed By: #### C BC ####[facility] [address] [place], [place] [address]Dr. Michael Wynne Monocytes/100 WBC (Bld) 3.7 % Normal 1.7-12.0 [facility] Comment on above: Performed By: #### C BC ####[facility] [address] [place], [place] [address]Dr. Michael Wynne NEUT # 23.4 103/ul Critically high 1.4-6.5 [facility] Comment on above: Performed By: #### C BC ####[facility] [address] [place], [place] [address]Bx. Michael Wynne Neutrophils/100 WBC (Bld) 89.5 % Critically high 43.0- 75.0 [facility] Comment on above: Performed By: #### C BC ####[facility] [address] [place], [place] [address]Sj. Michael Wynne Platelet mean volume (Bld) [ Entitic vol] 10.5 fL Normal 9.5-13.5 [facility] Comment on above: Performed By: #### C BC ####[facility] [address] [place] [id number] Wynne PLT 297 103/ul Normal 150-450 [facility] Comment on above: Performed By: #### C BC ####[facility] [address] [place] [id number] Wynne RBC 4.51 106/ul Critically low 4.70-6.10 [facility] Comment on above: Performed By: #### C BC ####[facility] [address] [place] [id number] Wynne WBC 26.1 103/ul Critically high 4.0-11.0 [facility] Comment on above: Performed By: #### C BC ####[facility] [address] [place] [id number]. Michael Wynne PROF CHEM 8 (BAS METB)on Anion gap [Moles/Vol] 10.4 mmol/L Normal [facility] Comment on above: Performed By: #### P OCGLUC #### [facility] [address] [id number] Michael Wynne Calcium [Mass/Vol] 7.9 mg/dL Critically low 8.5-10.1 [facility] Comment on above: Performed By: #### P OCGLUC #### [facility] [address] [id number] [address] Michael Wynne Chloride [Moles/Vol] 100 mmol/L Normal 98-107 [facility] Comment on above: Performed By: #### P OCGLUC #### [facility] [address] [address] [address] Michael Wynne CO2 [Moles/Vol] 30.6 mmol/L Critically high 22.0-30.0 [facility] Comment on above: Performed By: #### P OCGLUC #### [facility] [address] [address] [address] Michael Wynne Creatinine [Mass/Vol] 1.06 mg/dL Normal 0.66-1.25 [facility] Comment on above: Performed By: #### P OCGLUC #### [facility] [address] [address] [address] Michael Wynne EGFR-AF MONTENEGRIN >60 Normal >=60 [facility] Comment on above: Performed By: #### P OCGLUC #### [facility] [address] [address] [address] Michael Wynne EGFR-NON AF MONTENEGRIN >60 Normal >=60 [facility] Comment on above: Performed By: #### P OCGLUC #### [facility] [address] [address] [address] Michael Wynne Glucose [Mass/Vol] 283 mg/dL Critically high 74-106 [facility] Comment on above: Performed By: #### P OCGLUC #### [facility] [address] [address] [address] Michael Wynne Potassium [Moles/Vol] 4.0 mmol/L Normal 3.4-5.0 [facility] Comment on above: Performed By: #### P OCGLUC #### [facility] [address] [address] [address] Michael Wynne Sodium [Moles/Vol] 137 mmol/L Normal 137-145 [facility] Comment on above: Performed By: #### P OCGLUC #### [facility] [address] [address] [address] Michael Wynne Urea nitrogen [Mass/Vol] 23.0 mg/dL Critically high 7.0-18 .0 [facility] Comment on above: Performed By: #### P OCGLUC #### [facility] [address] [address] [address] Michael Wynne Urea nitrogen/Creatinine [Mass ratio] 21.7 mg/mg Normal [facility] Comment on above: Performed By: #### P OCGLUC #### [facility] [address] [address] [address] Micheal Wynne Anion gap [Moles/Vol] 16.9 mmol/L Normal [facility] Comment on above: Performed By: #### B MP ####[facility] [address] [place] [address]Dr. Michael Wynne Calcium [Mass/Vol] 8.0 mg/dL Critically low 8.5-10.1 [facility] Comment on above: Performed By: #### B MP ####[facility] [address] [place], [place] [address]Dr. Michael Wynne Chloride [Moles/Vol] 98 mmol/L Normal 98-107 [facility] Comment on above: Performed By: #### B MP ####[facility] [address] [address]Dr. Michael Wynne CO2 [Moles/Vol] 24.4 mmol/L Normal 22.0-30.0 [facility] Comment on above: Performed By: #### B MP ####[facility] [address] [place], [place] [address]Dr. Michael Wynne Creatinine [Mass/Vol] 1.08 mg/dL Normal 0.66-1.25 [facility] Comment on above: Performed By: #### B MP ####[facility] [address] [place] [address]Dr. Michael Wynne EGFR-AF MONTENEGRIN >60 Normal >=60 [facility] Comment on above: Performed By: #### B MP ####[facility] [address] [place] [address]Dr. Michael Wynne EGFR-NON AF MONTENEGRIN >60 Normal >=60 [facility] Comment on above: Performed By: #### B MP ####[facility] [address] [id number]. Michael Wynne Glucose [Mass/Vol] 348 mg/dL Critically high 74-106 [facility] Comment on above: Performed By: #### B MP ####[facility] [address] [place] [id number]. Michael Wynne Potassium [Moles/Vol] 4.3 mmol/L Normal 3.4-5.0 [facility] Comment on above: Performed By: #### B MP ####[facility] [address] [place] [phone]. Michael Wynne Sodium [Moles/Vol] 135 mmol/L Critically low 137-145 [facility] Comment on above: Performed By: #### B MP ####[facility] [address] [place] [id number]. Michael Wynne Urea nitrogen [Mass/Vol] 25.0 mg/dL Critically high 7.0-18 .0 [facility] Comment on above: Performed By: #### B MP ####[facility] [address] [id number]. Michael Wynne Urea nitrogen/Creatinine [Mass ratio] 23.1 mg/mg Normal [facility] Comment on above: Performed By: #### B MP ####[facility] [address] [place] [id number] Wynne Anion gap [Moles/Vol] 15.6 mmol/L Normal [facility] Comment on above: Performed By: #### P OCGLUC #### [facility] [address] [address] [address] Michael Wynne Calcium [Mass/Vol] 8.2 mg/dL Critically low 8.5-10.1 [facility] Comment on above: Performed By: #### P OCGLUC #### [facility] [address] [address] [address] Michael Wynne Chloride [Moles/Vol] 98 mmol/L Normal 98-107 [facility] Comment on above: Performed By: #### P OCGLUC #### [facility] [address] [address] [address] Michael Wynne CO2 [Moles/Vol] 26.2 mmol/L Normal 22.0-30.0 [facility] Comment on above: Performed By: #### P OCGLUC #### [facility] [address] [address] [address] Michael Wynne Creatinine [Mass/Vol] 1.13 mg/dL Normal 0.66-1.25 [facility] Comment on above: Performed By: #### P OCGLUC #### [facility] [address] [address] [address] Michael Wynne EGFR-AF MONTENEGRIN >60 Normal >=60 [facility] Comment on above: Performed By: #### P OCGLUC #### [facility] [address] [place] [address] Dr. Michael Wynne EGFR-NON AF MONTENEGRIN >60 Normal >=60 [facility] Comment on above: Performed By: #### P OCGLUC #### [facility] [address] [address] [address] Michael Wynne Glucose [Mass/Vol] 339 mg/dL Critically high 74-106 T [facility] Comment on above: Performed By: #### P OCGLUC #### [facility] [address] [address] [address] Michael Wynne Potassium [Moles/Vol] 3.8 mmol/L Normal 3.4-5.0 [facility] Comment on above: Performed By: #### P OCGLUC #### [facility] [address] [address] [address] Michael Wynne Sodium [Moles/Vol] 136 mmol/L Critically low 137-145 Th [facility] Comment on above: Performed By: #### P OCGLUC #### [facility] [address] [address] [address] Michael Wynne Urea nitrogen [Mass/Vol] 27.0 mg/dL Critically high 7.0-18 .0 [facility] Comment on above: Performed By: #### P OCGLUC #### [facility] [address] [address] [address] Michael Wynne Urea nitrogen/Creatinine [Mass ratio] 23.9 mg/mg Normal [facility] Comment on above: Performed By: #### P OCGLUC #### [facility] [address] [address] [address] Michael Wynne Anion gap [Moles/Vol] 14.1 mmol/L Normal [facility] Comment on above: Performed By: #### B MP ####[facility] [address] [place] [address]DrPallavi Wynne Calcium [Mass/Vol] 8.6 mg/dL Normal 8.5-10.1 [facility] Comment on above: Performed By: #### B MP ####[facility] [address] [place] [address]DrPallavi Wynne Chloride [Moles/Vol] 102 mmol/L Normal 98-107 [facility] Comment on above: Performed By: #### B MP ####[facility] [address] [address]Dr. Michael Wynne CO2 [Moles/Vol] 27.6 mmol/L Normal 22.0-30.0 [facility] Comment on above: Performed By: #### B MP ####[facility] [address] [place] [address]DrPallavi Wynne Creatinine [Mass/Vol] 1.07 mg/dL Normal 0.66-1.25 [facility] Comment on above: Performed By: #### B MP ####[facility] [address] [place] [address]Dr. Michael Wynne EGFR-AF MONTENEGRIN >60 Normal >=60 [facility] Comment on above: Performed By: #### B MP ####[facility] [address] [place] [address]DrPallavi Wynne EGFR-NON AF MONTENEGRIN >60 Normal >=60 [facility] Comment on above: Performed By: #### B MP ####[facility] [address] [place] [address]DrPallavi Wynne Glucose [Mass/Vol] 143 mg/dL Critically high 74-106 T [facility] Comment on above: Performed By: #### B MP ####[facility] [address] [place] [id number]. Michael Wynne Potassium [Moles/Vol] 3.7 mmol/L Normal 3.4-5.0 [facility] Comment on above: Performed By: #### B MP ####[facility] [address] [place] [phone]. Michael Wynne Sodium [Moles/Vol] 140 mmol/L Normal 137-145 [facility] Comment on above: Performed By: #### B MP ####[facility] [address] [phone]. [place] Ricci Urea nitrogen [Mass/Vol] 31.0 mg/dL Critically high 7.0-18 .0 [facility] Comment on above: Performed By: #### B MP ####[facility] [address] [place] [id number]. Michael Wynne Urea nitrogen/Creatinine [Mass ratio] 29.0 mg/mg Normal [facility] Comment on above: Performed By: #### B MP ####[facility] [address] [place] [id number]. Michael Ricci XR CHEST 1 Von 08-18-2021 XR CHEST 1 V EXAM: XR CHEST 1 V HISTORY: SHORTNESS OF BREATH COMPARISON: 11/10/2019 TECHNIQUE: AP portable erect FINDINGS: LUNGS: No significant pulmonary parenchymal abnormalities. VASCULATURE: No increased pulmonary vasculature. PLEURA: No pneumothorax, effusion, or pleural thickening. CARDIAC: No cardiomegaly or cardiac silhouette abnormality. MEDIASTINUM: No visible mass or adenopathy. BONES: No fracture or visible bone lesion. OTHER: Negative. IMPRESSION: No acute disease. Electronically authenticated by: ANAY ALBERT Date: 2021-08-18 09:08 Normal [facility] CBC AUTO DIFFon 08-17-2021 BASO # 0.1 103/ul Normal 0.0-0.1 [facility] ospital Comment on above: Performed By: #### C BC #### [facility] [address], [place] [address] Dr. Michael Wynne Basophils/100 WBC (Bld) 0.2 % Normal 0.2-2.0 [facility] Comment on above: Performed By: #### C BC #### [facility] [address] [place] [address] Dr. Michael Wynne EO # 0.0 103/ul Normal 0.0-0.7 The [facility] Comment on above: Performed By: #### C BC #### [facility] [address] [place] [address] Dr. Michael Wynne Eosinophils/100 WBC (Bld) 0.0 % Critically low 0.9-7. 0 [facility] Comment on above: Performed By: #### C BC #### [facility] [address] [place] [address] Dr. Michael Wynne Erythrocyte distribution wid th (RBC) [Ratio] 11.9 % Normal 11.0-15.[address] [facility] Comment on above: Performed By: #### C BC #### [facility] [address] [place] [address] Dr. Michael Wynne Hematocrit (Bld) [Volume fraction] 42.9 % Normal 4 2.0-54.0 [facility] Comment on above: Performed By: #### C BC #### [facility] [address] [place] [address] Dr. Michael Wynne Hemoglobin (Bld) [Mass/Vol] 15.2 g/dL Normal 14.0-18. 0 [facility] Comment on above: Performed By: #### C BC #### [facility] [address] [place] [address] Dr. Michael Wynne IG # 0.28 10e3/ul Critically high 0.00-0.03 The [facility] Comment on above: Performed By: #### C BC #### [facility] [address] [place] [address] Dr. Michael Wynne IG % 1.0 % Critically high 0.0-0.5 The [facility] Comment on above: Performed By: #### C BC #### [facility] [address] [place] [address] [address] Michael Wynne LYMPH # 1.4 103/ul Normal 1.2-3.8 The [place] [facility] Comment on above: Performed By: #### C BC #### [facility] [address] [place] [address] Dr. Michael Wynne Lymphocytes/100 WBC (Bld) 4.9 % Critically low 20.5-6 0.0 [facility] Comment on above: Performed By: #### C BC #### [facility] [address] [place] [address] Dr. Michael Wynne MANUAL DIFF REQ NO Normal [facility] Comment on above: Performed By: #### C BC #### [facility] [address] [place] [address] Dr. Michael Wynne MCH (RBC) [Entitic mass] 31.6 pg Normal 25.9-34.0 [facility] Comment on above: Performed By: #### C BC #### [facility] [address] [place] [address] Dr. Michael Wynne MCHC (RBC) [Mass/Vol] 35.4 g/dL Critically high 29.9-35.2 [facility] Comment on above: Performed By: #### C BC #### [facility] [address] [place] [address] Dr. Michael Wynne MCV (RBC) [Entitic vol] 89.2 fL Normal 80.0-94.0 [facility] Comment on above: Performed By: #### C BC #### [facility] [address] [place] [address] Dr. Michael Wynne MONO # 0.8 103/ul Normal 0.3-0.8 The [place] [facility] Comment on above: Performed By: #### C BC #### [facility] [address] [place] [address] Dr. Michael Wynne Monocytes/100 WBC (Bld) 2.7 % Normal 1.7-12.0 [facility] Comment on above: Performed By: #### C BC #### [facility] [address] [address] [address] Michael Wynne NEUT # 26.1 103/ul Critically high 1.4-6.5 [facility] Comment on above: Performed By: #### C BC #### [facility] [address] [address] [address] Michael Wynne Neutrophils/100 WBC (Bld) 91.2 % Critically high 43.0- 75.0 [facility] Comment on above: Performed By: #### C BC #### [facility] [address] [address] [address] Michael Wynne Platelet mean volume (Bld) [ Entitic vol] 10.7 fL Normal 9.5-13.[address] [facility] Comment on above: Performed By: #### C BC #### [facility] [address] [place] [address] Dr. Michael Wynne PLT 324 103/ul Normal 150-450 The [facility] [place] ospital Comment on above: Performed By: #### C BC #### [facility] [address] [place] [address] Dr. Michael Wynne RBC 4.81 106/ul Normal 4.70-6.10 [facility] Comment on above: Performed By: #### C BC #### [facility] [address] [place] [address] Dr. Michael Wynne WBC 28.6 103/ul Critically high 4.0-11.0 [facility] Comment on above: Performed By: #### C BC #### [facility] [address] [address] [address] Michael Wynne CULTURE URINEon 08-17-2021 CULTURE URINE Culture Observations : No growth Normal The [facility] Comment on above: Performed By: #### U RCX ####[facility] [address] [address]Dr. Michael Wynne POINT OF CARE GLUCOSEon - Glucose [Mass/Vol] 433 mg/dL Critically high 74-106 T [facility] Comment on above: Performed By: #### P OCGLUC #### [facility] [address] [address] [address] Michael Wynne POCGLUC >600 Critically high 74-106 [facility] Comment on above: Result Comment: Lab Draw Ordered Performed By: #### P OCGLUC #### [facility] [address] [address] [address] Michael Wynne PROF CHEM 8 (BAS METB)on Anion gap [Moles/Vol] 14.6 mmol/L Normal [facility] Comment on above: Performed By: #### B MP ####[facility] [address] [address]Dr. Michael Wynne Calcium [Mass/Vol] 8.4 mg/dL Critically low 8.5-10.1 [facility] Comment on above: Performed By: #### B MP ####[facility] [address] [place] [address]Dr. Michael Wynne Chloride [Moles/Vol] 102 mmol/L Normal 98-107 [facility] Comment on above: Performed By: #### B MP ####[facility] [address] [place] [address]DrPallavi Wynne CO2 [Moles/Vol] 26.5 mmol/L Normal 22.0-30.0 [facility] Comment on above: Performed By: #### B MP ####[facility] [address] [place] [address]DrPallavi Wynne Creatinine [Mass/Vol] 1.46 mg/dL Critically high 0.66-1.25 [facility] Comment on above: Performed By: #### B MP ####[facility] [address] [place] [address]DrPallavi Wynne EGFR-AF MONTENEGRIN >60 Normal >=60 [facility] Comment on above: Performed By: #### B MP ####[facility] [address] [place] [address]DrPallavi Wynne Performed By: #### P OCGLUC #### [facility] [address] [address] [address] Michael Wynne EGFR-NON AF MONTENEGRIN 54 mL/min/1.73m2 Critically low >=60 [facility] Comment on above: Performed By: #### B MP ####[facility] [address] [place] [address]DrPallavi Wynne Glucose [Mass/Vol] 343 mg/dL Critically high 74-106 T [facility] Comment on above: Performed By: #### B MP ####[facility] [address] [place] [address]DrPallavi Wynne Potassium [Moles/Vol] 4.1 mmol/L Normal 3.4-5.0 [facility] Comment on above: Performed By: #### B MP ####[facility] [address] [place] [address]DrPallavi Wynne Sodium [Moles/Vol] 139 mmol/L Normal 137-145 [facility] Comment on above: Performed By: #### B MP ####[facility] [address] [place] [address]Dr. Michael Wynne Urea nitrogen [Mass/Vol] 38.0 mg/dL Critically high 7.0-18 .0 [facility] Comment on above: Performed By: #### B MP ####[facility] [address] [place] [address]DrPallavi Wynne Urea nitrogen/Creatinine [Mass ratio] 26.0 mg/mg Normal [facility] Comment on above: Performed By: #### B MP ####[facility] [address] [place] [address]DrPallavi Wynne Anion gap [Moles/Vol] 19.0 mmol/L Normal [facility] Comment on above: Performed By: #### P OCGLUC #### [facility] [address] [place] [address] [address] Michael Wynne Calcium [Mass/Vol] 8.5 mg/dL Normal 8.5-10.1 [facility] Comment on above: Performed By: #### P OCGLUC #### [facility] [address] [address] [address] Michael Wynne Chloride [Moles/Vol] 101 mmol/L Normal 98-107 [facility] Comment on above: Performed By: #### P OCGLUC #### [facility] [address] [place] [address] [address] Michael Wynne CO2 [Moles/Vol] 21.8 mmol/L Critically low 22.0-30.0 [facility] Comment on above: Performed By: #### P OCGLUC #### [facility] [address] [address] [address] Michael Wynne Creatinine [Mass/Vol] 1.41 mg/dL Critically high 0.66-1.25 [facility] Comment on above: Performed By: #### P OCGLUC #### [facility] [address] [address] [address] Michael Wynne EGFR-NON AF MONTENEGRIN 56 mL/min/1.73m2 Critically low >=60 [facility] Comment on above: Performed By: #### P OCGLUC #### [facility] [address] [address] [address] Michael Wynne Glucose [Mass/Vol] 393 mg/dL Critically high 74-106 [facility] Comment on above: Performed By: #### P OCGLUC #### [facility] [address] [place] [address] Dr. Michael Wynne Potassium [Moles/Vol] 4.8 mmol/L Normal 3.4-5.0 [facility] Comment on above: Performed By: #### P OCGLUC #### [facility] [address] [address] [address] Michael Wynne Sodium [Moles/Vol] 137 mmol/L Normal 137-145 [facility] Comment on above: Performed By: #### P OCGLUC #### [facility] [address] [place] [address] [address] Michael Wynne Urea nitrogen [Mass/Vol] 35.0 mg/dL Critically high 7.0-18 .0 [facility] Comment on above: Performed By: #### P OCGLUC #### [facility] [address] [address] [address] Michael Wynne Urea nitrogen/Creatinine [Mass ratio] 24.8 mg/mg Normal [facility] Comment on above: Performed By: #### P OCGLUC #### [facility] [address] [address] [address] Michael Wynne Anion gap [Moles/Vol] 18.0 mmol/L Normal [facility] Comment on above: Performed By: #### P OCGLUC #### [facility] [address] [place] [address] [address] Michael Wynne Calcium [Mass/Vol] 8.9 mg/dL Normal 8.5-10.1 [facility] Comment on above: Performed By: #### P OCGLUC #### [facility] [address] [place] [address] [address] Michael Wynne Chloride [Moles/Vol] 103 mmol/L Normal 98-107 [facility] Comment on above: Performed By: #### P OCGLUC #### [facility] [address] [address] [address] Michael Wynne CO2 [Moles/Vol] 22.7 mmol/L Normal 22.0-30.0 [facility] Comment on above: Performed By: #### P OCGLUC #### [facility] [address] [address] [address] Michael Wynne Creatinine [Mass/Vol] 1.54 mg/dL Critically high 0.66-1.25 [facility] Comment on above: Performed By: #### P OCGLUC #### [facility] [address] [address] [address] Michael Wynne EGFR-AF MONTENEGRIN >60 Normal >=60 [facility] Comment on above: Performed By: #### P OCGLUC #### [facility] [address] [address] [address] Michael Wynne EGFR-NON AF MONTENEGRIN 51 mL/min/1.73m2 Critically low >=60 [facility] Comment on above: Performed By: #### P OCGLUC #### [facility] [address] [address] [address] Michael Wynne Glucose [Mass/Vol] 375 mg/dL Critically high 74-106 [facility] Comment on above: Performed By: #### P OCGLUC #### [facility] [address] [address] [address] Michael Wynne Potassium [Moles/Vol] 4.7 mmol/L Normal 3.4-5.0 [facility] Comment on above: Performed By: #### P OCGLUC #### [facility] [address] [address] [address] Michael Wynne Sodium [Moles/Vol] 139 mmol/L Normal 137-145 [facility] Comment on above: Performed By: #### P OCGLUC #### [facility] [address] [address] [address] Michael Wynne Urea nitrogen [Mass/Vol] 37.0 mg/dL Critically high 7.0-18 .0 [facility] Comment on above: Performed By: #### P OCGLUC #### [facility] [address] [address] [address] Michael Wynne Urea nitrogen/Creatinine [Mass ratio] 24.0 mg/mg Normal [facility] Comment on above: Performed By: #### P OCGLUC #### [facility] [address] [address] [address] Michael Wynne Anion gap [Moles/Vol] 30.3 mmol/L Normal [facility] Comment on above: Performed By: #### B MP #### [facility] [address] [address] [address] Michael Wynne Calcium [Mass/Vol] 9.2 mg/dL Normal 8.5-10.1 [facility] Comment on above: Performed By: #### B MP #### [facility] [address] [address] [address] Michael Wynne Chloride [Moles/Vol] 95 mmol/L Critically low 98-107 [facility] Comment on above: Performed By: #### B MP #### [facility] [address] [place] [address] Dr. Michael Wynne CO2 [Moles/Vol] 15.0 mmol/L Critically low 22.0-30.0 [facility] Comment on above: Performed By: #### B MP #### [facility] [address] [address] [address] Michael Wynne Creatinine [Mass/Vol] 1.62 mg/dL Critically high 0.66-1.25 [facility] Comment on above: Performed By: #### B MP #### [facility] [address] [address] [address] Michael Wynne EGFR-AF MONTENEGRIN 58 mL/min/1.73m2 Critically low >=60 [facility] Comment on above: Performed By: #### B MP #### [facility] [address] [address] [address] Michael Wynne EGFR-NON AF MONTENEGRIN 48 mL/min/1.73m2 Critically low >=60 [facility] Comment on above: Performed By: #### B MP #### [facility] [address] [address] [address] Michael Wynne Glucose [Mass/Vol] 706 mg/dL Critically high 74-106 [facility] Comment on above: Result Comment: Test Repeated. Critical Value Verified Performed By: #### B MP #### [facility] [address] [place] [address] Dr. Michael Wynne Potassium [Moles/Vol] 5.3 mmol/L Critically high 3.4-5.0 [facility] Comment on above: Performed By: #### B MP #### [facility] [address] [place] [address] [address] Michael Wynne Sodium [Moles/Vol] 135 mmol/L Critically low 137-145 [facility] Comment on above: Performed By: #### B MP #### [facility] [address] [address] [address] Michael Wynne Urea nitrogen [Mass/Vol] 40.0 mg/dL Critically high 7.0-18 .0 [facility] Comment on above: Performed By: #### B MP #### [facility] [address] [address] [address] Michael Wynne Urea nitrogen/Creatinine [Mass ratio] 24.7 mg/mg Normal [facility] Comment on above: Performed By: #### B MP #### [facility] [address] [place] [address] Dr. Michael Wynne UA RANDOM W/MICROSCOPICon BACTERIA NONE SEEN Normal NONE SEEN The [facility] [place] ospital Comment on above: Performed By: #### C VDTBH #### [facility] [address] [place] [address] Dr. Michael Wynne Bilirubin Ql (U) Negative Normal NEGATIVE [facility] Comment on above: Performed By: #### C VDTBH #### [facility] [address] [place] [address] Dr. Michael Wynne CAST NONE SEEN Normal NONE SEEN The [facility] [place] ostal Comment on above: Performed By: #### C VDTBH #### [facility] [address] [place] [address] Dr. Michael Wynne Clarity (U) CLEAR Normal CLEAR [facility] Comment on above: Performed By: #### C VDTBH #### [facility] [address] [place] [address] Dr. Michael Wynne Color (U) LT. YELLOW Normal YELLOW The [facility] Comment on above: Performed By: #### C VDTBH #### [facility] [address] [place] [address] Dr. Michael Wynne Crystals LM Nom (Urine sed) NONE SEEN Normal NONE SEE N [facility] Comment on above: Performed By: #### C VDTBH #### [facility] [address] [place] [address] Dr. Michael Wynne Epithelial cells LM Ql (Urine sed) RARE Normal N ONE SEEN /RARE [facility] Comment on above: Performed By: #### C VDTBH #### [facility] [address] [place] [address] Dr. Michael Wynne Glucose Ql (U) >1000 Abnormal NEGATIVE [facility] Comment on above: Performed By: #### C VDTBH #### [facility] [address] [place] [address] Dr. Michael Wynne Hemoglobin Ql (U) SMALL Abnormal NEGATIVE The [facility] Comment on above: Performed By: #### C VDTBH #### [facility] [address] [place] [address] Dr. Michael Wynne Ketones Ql (U) >=80 Abnormal NEGATIVE [facility] Comment on above: Performed By: #### C VDTBH #### [facility] [address] [place] [address] Dr. Michael Wynne LEUKOCYTES Negative Normal NEGATIVE The [facility] [place] [facility]ital Comment on above: Performed By: #### C VDTBH #### [facility] [address] [place] [address] Dr. Michael Wynne MUCOUS NONE SEEN Normal NONE SEEN The [facility] [place] [facility] Comment on above: Performed By: #### C VDTBH #### [facility] [address] [place] [address] Dr. Michael Wynne Nitrite Ql (U) Negative Normal NEGATIVE [facility] Comment on above: Performed By: #### C VDTBH #### [facility] [address] [place] [address] Dr. Michael Wynne pH (U) 5.0 [pH] Normal 5-9 The [facility] [place] ostal Comment on above: Performed By: #### C VDTBH #### [facility] [address] [place] [address] Dr. Michael Wynne RBC 10-20 Abnormal 0-2 The [facility] [place] ostal Comment on above: Performed By: #### C VDTBH #### [facility] [address] [place] [address] Dr. Michael Wynne SPEC GRAVITY 1.020 Normal 1.005-<=1.025 [facility] Comment on above: Performed By: #### C VDTBH #### [facility] [address] [place] [address] Dr. Michael Wynne UA PROTEIN TRACE Normal NEGATIVE/ TRACE [facility] Comment on above: Performed By: #### C VDTBH #### [facility] [address] [place] [address] Dr. Michael Wynne Urobilinogen Qn (U) 0.2 {Barbie'U}/dL Normal 0.2 - 1. 0 [facility] Comment on above: Performed By: #### C ZIYAD #### [facility] [address] [address] [address] Michael Wynne WBC 0-2 Abnormal NONE SEEN The [facility] [place] [facility] Comment on above: Performed By: #### C ZIYAD #### [facility] [address] [address] [address] Michael Wynne ACETONE SERUMon 08-16-2021 ACETONE SMALL Abnormal NEGATIVE The [facility] [place] [facility] Comment on above: Performed By: #### A CETWILLIE ####[facility] [address] [place] [address]DrPallavi Wynne CBC W MANUAL DIFFon 08-17-19 22 ATYPICAL LYMPH # 0.26 103/ul Normal [facility] Comment on above: Performed By: #### C GILMER ####[facility] [address] [place] [address]DrPallavi Wynne ATYPICAL LYMPH % 1 % Normal [facility] Comment on above: Performed By: #### C GILMER ####[facility] [address] [place] [address]DrPallavi Wynne BAND # 0.5 103/ul Critically high 0.0-0.3 [facility] Comment on above: Performed By: #### C GILMER ####[facility] [address] [place] [address]DrPallavi Wynne BAND % 2 % Normal 0-5 The [facility] [place] [facility] Comment on above: Performed By: #### C GILMER ####[facility] [address] [place] [address]DrPallavi Wynne BASOM # 0.00 103/ul Normal 0.00-0.10 [facility] Comment on above: Performed By: #### C GILMER ####[facility] [address] [place] [address]DrPallavi Wynne BASOM % 0.0 % Critically low 0.2-2.0 [facility] Comment on above: Performed By: #### C GILMER ####[facility] [address] [place] [address]Dr. Michael Wynne BLAST # Normal The [facility] [place] [facility] Comment on above: Performed By: #### C GILMER ####[facility] [address] [place] [id number]. Michael Wynne BLAST % Normal The [facility] [place] [facility] Comment on above: Performed By: #### C GILMER ####[facility] [address] [place], [place] [address]Dr. Michael Wynne CORRECTED WBC Normal 4.0-11.0 [facility] Comment on above: Performed By: #### C GILMER ####[facility] [address] [place], [place] [address]Dr. Michael Wynne EOS # 0.00 103/ul Normal 0.00-0.70 [facility] Comment on above: Performed By: #### C GILMER ####[facility] [address] [place], [place] [address]Dr. Michael Wynne EOS% 0.0 % Critically low 0.9-7.0 [facility] Comment on above: Performed By: #### C GILMER ####[facility] [address] [place], [place] [address]Dr. Michael Wynne HCT 47.1 % Normal 42.0-54.0 The [facility] [place] [facility] Comment on above: Performed By: #### C GILMER ####[facility] [address] [place], [place] [address]Dr. Michale Wynne HGB 16.7 g/dl Normal 14.0-18.0 The [facility] [place] ostal Comment on above: Performed By: #### C GILMER ####[facility] [address] [place], [place] [address]Dr. Michael Wynne LYMPHM # 1.03 103/ul Critically low 1.20-3.80 [facility] Comment on above: Performed By: #### C GILMER ####[facility] [address] [place], [place] [address]Qy. Michael Wynne LYMPHM% 4.0 % Critically low 20.5-60.0 [facility] Comment on above: Performed By: #### C GILMER ####[facility] [address] [place], [place] [address]Sn. Michael Wynne MCH 31.4 pg Normal 25.9-34.0 The [facility] [place] [facility]ital Comment on above: Performed By: #### C GILMER ####[facility] [address] [place] [id number]. Michael Wynne MCHC 35.5 g/dl Critically high 29.9-35.2 [facility] Comment on above: Performed By: #### C GILMER ####[facility] [address] [place] [id number]. Michael Wynne MCV 88.5 fL Normal 80.0-94.0 [facility] [place] [facility] Comment on above: Performed By: #### C GILMER ####[facility] [address] [place] [id number]. Michael Wynne METAMYELOCYTE # Normal [facility] Comment on above: Performed By: #### C GILMER ####[facility] [address] [place] [id number]. Michael Wynne METAMYELOCYTE % Normal [facility] Comment on above: Performed By: #### C GILMER ####[facility] [address] [place] [id number]. Michael Wynne MONOM# 0.77 103/ul Normal 0.30-0.80 [facility] Comment on above: Performed By: #### C GILMER ####[facility] [address] [place] [id number]. Michael Wynne MONOM% 3.0 % Normal 1.7-12.0 The [facility] [place] [facility] Comment on above: Performed By: #### C GILMER ####[facility] [address] [place] [id number]. Michael Wynne MPV 11.2 fL Normal 9.5-13.5 [facility] [place] [facility] Comment on above: Performed By: #### Emma SCHERER ####[facility] [address]ute[address] [place] [id number]. Michael Wynne MYELOCYTE # Normal [facility] Comment on above: Performed By: #### C GILMER ####[facility] [address] [place] [id number]. Michael Wynne MYELOCYTE % Normal [facility] Comment on above: Performed By: #### C GILMER ####[facility] [address] [place] [id number]. Michael Wynne NRBC Normal [facility] [place] [facility] Comment on above: Performed By: #### Emma SCHERER ####[facility] [address] [place], [place] [id number]. Michael Wynne PLT 359 103/ul Normal 150-450 The [facility] [place] ostal Comment on above: Performed By: #### C GILMER ####[facility] [address] [place], [place] [id number]. Michael Wynne RBC 5.32 106/ul Normal 4.70-6.10 [facility] Comment on above: Performed By: #### C GILMER ####[facility] [address] [place], [place] [address]Dr. Michael Wynne RDW 11.7 % Normal 11.0-15.0 [facility] [place] ost[facility] Comment on above: Performed By: #### Emma SCHERER ####[facility] [address] [place] [id number]. Michael Wynne SEG # 23.13 103/ul Critically high 1.40-6.50 The [facility] Comment on above: Performed By: #### C GILMER ####[facility] [address] [place], [place] [id number]. Michael Wynne SEG % 90.0 % Critically high 43.0-75.0 [facility] Comment on above: Performed By: #### Emma SCHERER ####[facility] [address] [place], [place] [address]Dr. Michael Wynne WBC 25.7 103/ul Critically high 4.0-11.0 [facility] Comment on above: Performed By: #### C BCMAN ####[facility] [address] [place], [place] [address]We. Michael Wynne CULTURE BLOODon 08-16-2021 Microscopic examination of blood, culture Culture Observations: No growth at 5 days. Isolate 1 BC_BA_NA Normal [facility] l Comment on above: Performed By: #### B LDCX2 ####[facility] [address] [place], [place] [address]Kf. Michael Wynne Microscopic examination of blood, culture Culture Observations: No growth at 5 days Normal [facility] l Comment on above: Performed By: #### B LDCX1 ####[facility] [address] [place], [place] [address]Dt. Michael Ricci Covid-19 PCR (CVDTBH)on 07-26 SARS-CoV-2 (COVID-19) RNA DAMON+probe Ql (Unsp spec) Not detected Normal NOT DETECTED [facility] Comment on above: Result Comment: This test is not yet approved or cleared by the [place] FDA. When there are no FDA-approved or cleared tests available, and other criteria are met, FDA can make tests available under an emergency access mechanism called an Emergency Use Authorization (EUA). The EUA for this test is supported by the Drug Safety Associate of Health and Human Service's (HHS's) declaration that circumstances exist to justify the emergency use of in vitro diagnostics for the detection and/or diagnosis of the virus that causes COVID-19. This EUA will remain in effect (meaning this test can be used) for the duration of the COVID-19 declaration justifying emergency of IVDs, unless it is terminated or revoked by FDA (after which the test may no longer be used). When diagnostic testing is negative, the possibility of a false negative should be considered in the context of a patient's recent exposures and the presence of clinical signs and symptoms consistent with SARS-CoV-2. Performed By: #### C VDTBH #### [facility] [address] [place], [place] [address] Dr. Michael Wynne INFLUENZA A AND B AGon 08-16 INFLUANEGH SEE BELOW Normal [facility] [place] [facility] Comment on above: Result Comment: Nega tive for Flu A protein angiten. Infection due to Flu A cannot be ruled out. Flu A angiten in the sample may be below the detection limit of the test. Performed By: #### I NFLUAB ####[facility] [address] [place], [place] [address]Dr. Michael Wynne INFLUBNEGH SEE BELOW Normal [facility] [place] [facility] Comment on above: Result Comment: Nega tive for Flu B protein antigen. Infection due to Flu B cannot be ruled out. Flu B antigen in the sample may be below the detection limit of the test. Performed By: #### I NFLUAB ####[facility] [address] [place], [place] [address]Dr. Michael Wynne INFLUENZA A AG Negative Normal NEGATIVE SEE COMMENT [facility] Comment on above: Performed By: #### I NFLUAB ####[facility] [address] [place], [place] [address]Dr. Michael Wynne INFLUENZA B AG Negative Normal NEGATIVE SEE COMMENT [facility] Comment on above: Performed By: #### I NFLUAB ####[facility] [address] [place], [place] [address]Dr. Michael Wynne INTERNAL CONTROLS Within Normal Limits Normal Wi thin Normal Limits [facility] Comment on above: Performed By: #### I NFLUAB ####[facility] [address] [place], [place] [address]Dr. Michael Wynne LIPASEon 08-16-2021 Lipase [Catalytic activity/Vol] 25.0 U/L Normal 23.0 -300.0 [facility] Comment on above: Performed By: #### L AMINATA, LIPShanice, HSTROPN, BMP ####[facility] [address] [place], [place] [address]Dr. Michael Wynne LIVER PROFILEon 08-16-2021 Albumin [Mass/Vol] 4.3 g/dL Normal 3.4-5.0 [facility] Comment on above: Performed By: #### L IVER, LIPA, HSTROPN, BMP ####[facility] [address] [place] [address]Dr. Michael Wynne Albumin/Globulin [Mass ratio] 1.1 {ratio} Normal [facility] Comment on above: Performed By: #### L IVER, LIPA, HSTROPN, BMP ####[facility] [address] [place] [address]Dr. [place] Wynne ALP [Catalytic activity/Vol] 156 U/L Critically high 46 -116 [facility] Comment on above: Performed By: #### L IVER, LIPA, HSTROPN, BMP ####[facility] [address] [place], [place] [address]Dr. [place]apark Wynne ALT [Catalytic activity/Vol] 48 U/L Normal 16-63 [facility] Comment on above: Performed By: #### L IVER, LIPA, HSTROPN, BMP ####[facility] [address] [place], [place] [address]Dr. [place] Wynne AST [Catalytic activity/Vol] 26 U/L Normal 15-37 [facility] Comment on above: Performed By: #### L IVER, LIPA, HSTROPN, BMP ####[facility] [address] [place] [address]Dr. [place]ark Wynne BILI, CONJUGATED 0.2 mg/dL Normal 0.0-0.3 [facility] Comment on above: Performed By: #### L IVER, LIPA, HSTROPN, BMP ####[facility] [address] [place] [address]Dr. [place] Wynne Bilirubin [Mass/Vol] 1.3 mg/dL Normal 0.2-1.3 [facility] Comment on above: Performed By: #### L IVER, LIPA, HSTROPN, BMP ####[facility] [address] [place] [address]Dr. Michael Wynne Globulin (S) [Mass/Vol] 3.9 g/dL Normal T [facility] Comment on above: Performed By: #### L IVER, LIPA, HSTROPN, BMP ####[facility] [address] [place] [address]Dr. Michael Wynne Protein [Mass/Vol] 8.2 g/dL Normal 6.1-8.2 [facility] Comment on above: Performed By: #### L CURTIS COATES, HSTROPN, BMP ####[facility] [address] [place] [address]Dr. Michael Wynne PH VENOUS BLOODon 08-16-2021 PCO2 VENOUS 44.4 mmHg Normal 40.0-52.0 [facility] Comment on above: Performed By: #### C VDTBH #### [facility] [address] [place] [address] [address] Michael Wynne pH VENOUS 7.209 Critically low 7.330-7.430 [facility] Comment on above: Performed By: #### C VDTBH #### [facility] [address] [place] [address] [address] Michael Wynne POINT OF CARE GLUCOSEon 07-26 POCGLUC >600 Critically high 74-106 [facility] Comment on above: Result Comment: Lab Draw Ordered Performed By: #### P OCGLUC #### [facility] [address] [place] [address] Dr. Michael Wynne POCGLUC >600 Critically high 74-106 [facility] Comment on above: Result Comment: Lab Draw Ordered Performed By: #### C VDTBH #### [facility] [address] [place] [address] [address] Michael Wynne PROF CHEM 8 (BAS METB)on Anion gap [Moles/Vol] 31.3 mmol/L Normal [facility] Comment on above: Performed By: #### L CURTIS COATES, HSTROPN, BMP ####[facility] [address] [place] [address]Dr. Michael Wynne Calcium [Mass/Vol] 10.7 mg/dL Critically high 8.5-10.1 [facility] Comment on above: Performed By: #### L IVER, LIPA, HSTROPN, BMP ####[facility] [address] [place] [address]Dr. Michael Wynne Chloride [Moles/Vol] 87 mmol/L Critically low 98-107 [facility] Comment on above: Performed By: #### L IVER, LIPA, HSTROPN, BMP ####[facility] [address] [place] [address]Dr. Michael Wynne CO2 [Moles/Vol] 18.3 mmol/L Critically low 22.0-30.0 [facility] Comment on above: Performed By: #### L IVER, LIPA, HSTROPN, BMP ####[facility] [address] [place], [place] [address]Dr. Michael Wynne Creatinine [Mass/Vol] 1.82 mg/dL Critically high 0.66-1.25 [facility] Comment on above: Performed By: #### L IVER, LIPA, HSTROPN, BMP ####[facility] [address] [place], [place] [address]Dr. Michael Wynne EGFR-AF MONTENEGRIN 51 mL/min/1.73m2 Critically low >=60 [facility] Comment on above: Performed By: #### L IVER, LIPA, HSTROPN, BMP ####[facility] [address] [place] [address]Dr. Michael Wynne EGFR-NON AF MONTENEGRIN 42 mL/min/1.73m2 Critically low >=60 [facility] Comment on above: Performed By: #### L IVER, LIPA, HSTROPN, BMP ####[facility] [address] [place] [address]Dr. Michael Wynne Glucose [Mass/Vol] 738 mg/dL Critically high 74-106 [facility] Comment on above: Result Comment: Test Repeated. Critical Value Verified Performed By: #### L IVER, LIPA, HSTROPN, BMP ####[facility] [address] [place], [place] [address]Dr. Michael Wynne Potassium [Moles/Vol] 5.6 mmol/L Critically high 3.4-5.0 [facility] Comment on above: Performed By: #### L IVER, LIPA, HSTROPN, BMP ####[facility] [address] [place] [address]Dr. Michael Wynne Sodium [Moles/Vol] 131 mmol/L Critically low 137-145 [facility] Comment on above: Performed By: #### L IVER, LIPA, HSTROPN, BMP ####[facility] [address] [place] [address]Dr. Michael Wynne Urea nitrogen [Mass/Vol] 38.0 mg/dL Critically high 7.0-18 .0 [facility] Comment on above: Performed By: #### L IVER, LIPA, HSTROPN, BMP ####[facility] [address] [place] [address]Dr. Michael Wynne Urea nitrogen/Creatinine [Mass ratio] 20.9 mg/mg Normal [facility] Comment on above: Performed By: #### L IVER, LIPA, HSTROPN, BMP ####[facility] [address] [place] [address]Dr. Michael Wynne TROPONIN, HIGH SENSITIVITYon 08-16-2021 HSTROP 11.6 pg/mL Normal 4.0-42.2 The [place] [facility] Comment on above: Result Comment: CUT- OFF POINTS HAVE BEEN ESTABLISHED BASED ON THE FOURTH UNIVERSAL DEFINITIONS OF MYOCARDIAL INFARCTION. THE UPPER REFERENCE LIMIT (URL) OF TROPONIN, DEFINED THE 99TH PERCENTILE OF cTnI DISTRIBUTION IN A REFERENCE POPULATION, HAS BEEN CONFIRMED THE DECISION THRESHOLD FOR [place] DIAGNOSIS. Performed By: #### L IVER, LIPA, HSTROPN, BMP ####[facility] [address] [place] [address]Dr. Michael Wynne Encounters Encounter Date Encounter Type Care Provider Facility Start: 08-21-2021 End: 08-22-[address] ANA GUADALUPE Facility:[facility] Start: 08-17-2021 End: 08-20-2021 Evaluation and management of inpatient DR JULIETA SIMENTAL Facility:[facility] Payers Date Payer Category Payer Unknown [id number] 1983 Unknown [id number] 1959 Unknown [id number] Clinical Note 08-21-2021 Note Date & Type Note Facility 08-21-2021 Note PROCEDURE: XR GI UPP ER AIR KUB DUAL CONTRAST COMPARISON: None. HISTORY: Gastroparesis due to diabetes mellitus TECHNIQUE: An air contrast upper gastrointestinal series was performed in the usual manner. Standard level fluoroscopic mode of operation utilized. FINDINGS: ESOPHAGUS:Normal. No visible obstruction, dilatation, reflux or hernia STOMACH: Moderate distention of the stomach. Heterogeneous appearance of the stomach lumen consistent with retained food stuffs DUODENUM:Normal. No ulceration or diverticulum. OTHER: Negative. IMPRESSION: Distended foodstuffs filled appearance of the stomach. The patient reports that he does not need anything for the past 12 hours. This suggests diabetic gastroparesis. Nuclear medicine scan could be performed for further characterization of gastric emptying Electronically authenticated by: ANAY ALBERT Date: 2021-08-21 09:26 [facility] Summary Purpose Family History No Family History Records Found Advance Directives No Advanced Directives Records Found Additional Source Comments (unrecognized sect ion and content) No Status Records Found INFORMATION SOURCE (unrecogn ized section and content) DATE CREATED AUTHOR 08/25/[address] [facility] FOR RECORDS PERTAINING TO PATIENTS WHO ARE OR HAVE BEEN ENROLLED IN A CHEMICAL DEPENDENCY/SUBSTANCEABUSE PROGRAM, SOME INFORMATION MAY BE OMITTED. This clinical summary was aggregated from multiple sources. Caution should be exercised in using it in the provision of clinical care. This summary normalizes information from multiple sources, and as a consequence, information in this document may materially change the coding, format and clinical context of patient data. In addition, data may be omitted in some cases. CLINICAL DECISIONS SHOULD BE BASED ON THE PRIMARY CLINICAL RECORDS. [facility]. provides no warranty or guarantee of the accuracy or completeness of information in this document.
== END 2023-05-15 11:33 | disposition home or self-care (01) ==
LOC: WC 11:32
PROVIDERS: PCP Family Medicine; Visit Provider Podiatrist Foot & Ankle Surgery
DX: E11.621 Type 2 diabetes mellitus with foot ulcer (principal); Z98.890 Other specified postprocedural states; L97.514 Non-pressure chronic ulcer of other part of right foot with necrosis of bone
CPT/HCPCS: 73630; G0463

== ENCOUNTER 2023-06-04 10:36 | Outpatient (OUT) | payer BC, SELFPAY ==
--- OUTSIDE RECORDS SUMMARY | 2023-06-04 10:42 | XMS_ITS | CCD ---
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 No almond blancher hand abdominal radiograph was performed. Standard level fluoroscopic [...] ANAY ALBERT Date: 2021-08-21 10:08 Normal [facility] CBC AUTO DIFFon 08-20-2021 BASO # 0.1 103/ul Normal 0.0-0.1 [facility] Comment on above: Performed By: #### P OCGLUC #### [facility] [address] [address] [address] Michael Wynne Basophils/100 WBC (Bld) 0.5 % Normal 0.2-2.0 [facility] Comment on above: Performed By: #### P OCGLUC #### [facility] [address] [address] [address] Michael Wynne EO # 0.1 103/ul Normal 0.0-0.7 [facility] Comment on above: Performed By: #### P OCGLUC #### [facility] [address] [address] [address] Michael Wynne Eosinophils/100 WBC (Bld) 0.9 % Normal 0.9-7.0 [facility] Comment on above: Performed By: #### P OCGLUC #### [facility] [address] [address] [address] Michael Wynne Erythrocyte distribution width (RBC) [Ratio] 11.9 % Normal 11.0-15.0 [facility] Comment on above: Performed By: #### P OCGLUC #### [facility] [address] [address] [address] Michael Wynne Hematocrit (Bld) [Volume fraction] 40.1 % Critically low 42.0-54.0 [facility] Comment on above: Performed By: #### P OCGLUC #### [facility] [address] [address] [address] Michael Wynne Hemoglobin (Bld) [Mass/Vol] 14.1 g/dL Normal 14.0-18.0 [facility] Comment on above: Performed By: #### P OCGLUC #### [facility] [address] [place] [address] Dr. Michael Wynne IG # 0.02 10e3/ul Normal 0.00-0.03 [facility] Comment on above: Performed By: #### P OCGLUC #### [facility] [address] [address] [address] Michael Wynne IG % 0.2 % Normal 0.0-0.5 [facility] Comment on above: Performed By: #### P OCGLUC #### [facility] [address] [place] [address] Dr. Michael Wynne LYMPH # 2.5 103/ul Normal 1.2-3.8 [facility] Comment on above: Performed By: #### P OCGLUC #### [facility] [address] [place] [address] Dr. Michael Wynne Lymphocytes/100 WBC (Bld) 25.4 % Normal 20.5-60.0 [facility] Comment on above: Performed By: #### P OCGLUC #### [facility] [address] [place] [address] Dr. Michael Wynne MANUAL DIFF REQ NO Normal [facility] Comment on above: Performed By: #### P OCGLUC #### [facility] [address] [place] [address] Dr. Michael Wynne MCH (RBC) [Entitic mass] 31.5 pg Normal 25.9-34.0 [facility] Comment on above: Performed By: #### P OCGLUC #### [facility] [address] [place] [address] Dr. Michael Wynne MCHC (RBC) [Mass/Vol] 35.2 g/dL Normal 29.9-35.2 [facility] Comment on above: Performed By: #### P OCGLUC #### [facility] [address] [place] [address] Dr. Michael Wynne MCV (RBC) [Entitic vol] 89.5 fL Normal 80.0-94.0 [facility] Comment on above: Performed By: #### P OCGLUC #### [facility] [address] [address] [address] Michael Wynne MONO # 0.8 103/ul Normal 0.3-0.8 [facility] Comment on above: Performed By: #### P OCGLUC #### [facility] [address] [address] [address] Michael Wynne Monocytes/100 WBC (Bld) 7.8 % Normal 1.7-12.0 [facility] Comment on above: Performed By: #### P OCGLUC #### [facility] [address] [address] [address] Michael Wynne NEUT # 6.5 103/ul Normal 1.4-6.5 [facility] Comment on above: Performed By: #### P OCGLUC #### [facility] [address] [address] [address] Michael Wynne Neutrophils/100 WBC (Bld) 65.2 % Normal 43.0-75.0 [facility] Comment on above: Performed By: #### P OCGLUC #### [facility] [address] [address] [address] Michael Wynne Platelet mean volume (Bld) [Entitic vol] 10.3 fL Normal 9.5-13.5 [facility] Comment on above: Performed By: #### P OCGLUC #### [facility] [address] [address] [address] Michael Wynne PLT 234 103/ul Normal 150-450 [facility] Comment on above: Performed By: #### P OCGLUC #### [facility] [address] [address] [address] Michael Wynne RBC 4.48 106/ul Critically low 4.70-6.10 [facility] Comment on above: Performed By: #### P OCGLUC #### [facility] [address] [address] [address] Michael Wynne WBC 9.9 103/ul Normal 4.0-11.0 [facility] Comment on above: Performed By: #### P OCGLUC #### [facility] [address] [address] [address] Michael Wynne PROF CHEM 8 (BAS METB)on Anion gap [Moles/Vol] 8.1 mmol/L Normal [facility] Comment on above: Performed By: #### P OCGLUC #### [facility] [address] [address] [address] Michael Wynne Calcium [Mass/Vol] 7.7 mg/dL Critically low 8.5-10.1 [facility] Comment on above: Performed By: #### P OCGLUC #### [facility] [address] [place] [address] Dr. Michael Wynne Chloride [Moles/Vol] 102 mmol/L Normal 98-107 [facility] Comment on above: Performed By: #### P OCGLUC #### [facility] [address] [place] [address] Dr. Michael Wynne CO2 [Moles/Vol] 29.2 mmol/L Normal 22.0-30.0 [facility] Comment on above: Performed By: #### P OCGLUC #### [facility] [address] [place] [address] Dr. Michael Wynne Creatinine [Mass/Vol] 0.83 mg/dL Normal 0.66-1.25 [facility] Comment on above: Performed By: #### P OCGLUC #### [facility] [address] [place] [address] Dr. Michael Wynne EGFR-AF THAI >60 Normal >=60 [facility] Comment on above: Performed By: #### P OCGLUC #### [facility] [address] [address] [address] Michael Wynne EGFR-NON AF THAI >60 Normal >=60 [facility] Comment on above: Performed By: #### P OCGLUC #### [facility] [address] [place] [address] Dr. Michael Wynne Glucose [Mass/Vol] 265 mg/dL Critically high 74-106 T [facility] Comment on above: Performed By: #### P OCGLUC #### [facility] [address] [address] [address] Michael Wynne Potassium [Moles/Vol] 3.3 mmol/L Critically low 3.4-5.0 [facility] Comment on above: Performed By: #### P OCGLUC #### [facility] [address] [address] [address] Michael Wynne Sodium [Moles/Vol] 136 mmol/L Critically low 137-145 Th [facility] Comment on above: Performed By: #### P OCGLUC #### [facility] [address] [address] [address] Michael Wynne Urea nitrogen [Mass/Vol] 14.0 mg/dL Normal 7.0-18.0 [facility] Comment on above: Performed By: #### P OCGLUC #### [facility] [address] [address] [address] Michael Wynne Urea nitrogen/Creatinine [Mass ratio] 16.9 mg/mg Normal [facility] Comment on above: Performed By: #### P OCGLUC #### [facility] [address] [address] [address] Michael Wynne CBC AUTO DIFFon 08-19-2021 BASO # 0.0 103/ul Normal 0.0-0.1 [facility] Comment on above: Performed By: #### C BC ####[facility] [address] [address]DrPallavi Wynne Basophils/100 WBC (Bld) 0.2 % Normal 0.2-2.0 [facility] Comment on above: Performed By: #### C BC ####[facility] [address] [address]DrPallavi Wynne EO # 0.0 103/ul Normal 0.0-0.7 [facility] Comment on above: Performed By: #### C BC ####[facility] [address] [address]DrPallavi Wynne Eosinophils/100 WBC (Bld) 0.0 % Critically low 0.9-7.0 [facility] Comment on above: Performed By: #### C BC ####[facility] [address] [address]Dr. Michael Wynne Erythrocyte distribution width (RBC) [Ratio] 11.9 % Normal 11.0-15.0 [facility] Comment on above: Performed By: #### C BC ####[facility] [address] [address]Dr. Michael Wynne Hematocrit (Bld) [Volume fraction] 41.5 % Critically low 42.0-54.0 [facility] Comment on above: Performed By: #### C BC ####[facility] [address] [place], [place] [address]Dr. Michael Wynne Hemoglobin (Bld) [Mass/Vol] 14.5 g/dL Normal 14.0-18.0 [facility] Comment on above: Performed By: #### C BC ####[facility] [address] [place], [place] [address]DrPallavi Michael Wynne IG # 0.11 10e3/ul Critically high 0.00-0.03 [facility] Comment on above: Performed By: #### C BC ####[facility] [address] [place], [place] [address]DrPallavi Michael Wynne IG % 0.6 % Critically high 0.0-0.5 [facility] Comment on above: Performed By: #### C BC ####[facility] [address] [place], [place] [address]DrPallavi Michael Wynne LYMPH # 1.7 103/ul Normal 1.2-3.8 [facility] Comment on above: Performed By: #### C BC ####[facility] [address] [place], [place] [address]DrPallavi Michael Wynne Lymphocytes/100 WBC (Bld) 9.2 % Critically low 20.5-60.0 [facility] Comment on above: Performed By: #### C BC ####[facility] [address] [place], [place] [address]DrPallavi Michael Wynne MANUAL DIFF REQ NO Normal [facility] Comment on above: Performed By: #### C BC ####[facility] [address] [address]Dr[address] Michael Ricci MCH (RBC) [Entitic mass] 31.0 pg Normal 25.9-34.0 [facility] Comment on above: Performed By: #### C BC ####[facility] [address] [address]Dr. [place] Ricci MCHC (RBC) [Mass/Vol] 34.9 g/dL Normal 29.9-35.2 [facility] Comment on above: Performed By: #### C BC ####[facility] [address] [address]Dr. Michael Wynne MCV (RBC) [Entitic vol] 88.7 fL Normal 80.0-94.0 [facility] Comment on above: Performed By: #### C BC ####[facility] [address] [place], [place] [address]Dr. Michael Wynne MONO # 1.1 103/ul Critically high 0.3-0.8 [facility] Comment on above: Performed By: #### C BC ####[facility] [address] [place], [place] [address]Dr. Michael Wynne Monocytes/100 WBC (Bld) 5.7 % Normal 1.7-12.0 [facility] Comment on above: Performed By: #### C BC ####[facility] [address] [place], [place] [address]Dr. Michael Wynne NEUT # 15.9 103/ul Critically high 1.4-6.5 [facility] Comment on above: Performed By: #### C BC ####[facility] [address] [place], [place] [address]DrPallavi Wynne Neutrophils/100 WBC (Bld) 84.3 % Critically high 43.0-75.0 [facility] Comment on above: Performed By: #### C BC ####[facility] [address] [place], [place] [address]DrPallavi Wynne Platelet mean volume (Bld) [Entitic vol] 10.4 fL Normal 9.5-13.5 [facility] Comment on above: Performed By: #### C BC ####[facility] [address] [address]Dr. Michael Wynne PLT 284 103/ul Normal 150-450 [facility] Comment on above: Performed By: #### C BC ####[facility] [address] [address]Dr. [place] Ricci RBC 4.68 106/ul Critically low 4.70-6.10 [facility] Comment on above: Performed By: #### C BC ####[facility] [address] [address]Dr. [place] Ricci WBC 18.8 103/ul Critically high 4.0-11.0 [facility] Comment on above: Performed By: #### C BC ####[facility] [address] [address]Dr. Michael Wynne CRPon 08-19-2021 CRP [Mass/Vol] mg/L Normal <=1.0 [facility] Comment on above: Performed By: #### C RP, TSH, FT3 #### [facility] [address] [address] [address] Michael Wynne FREE T3on 08-19-2021 FREE T3 1.19 pg/mlL Critically low 2.77-5.27 [facility] Comment on above: Performed By: #### C RP, TSH, FT3 #### [facility] [address] [address] [address] Michael Wynne FREE T4on 08-19-2021 Free T4 [Mass/Vol] 1.13 ng/dL Normal 0.78-2.19 [facility] Comment on above: Performed By: #### F T4 ####[facility] [address] [address]Dr. Michael Wynne LIVER PROFILEon 08-19-2021 Albumin [Mass/Vol] 3.2 g/dL Critically low 3.4-5.0 [facility] Comment on above: Performed By: #### L IVER ####[facility] [address] [place], [place] [address]Po. Michael Wynne Albumin/Globulin [Mass ratio] 0.9 {ratio} Normal [facility] Comment on above: Performed By: #### L IVER ####[facility] [address] [place], [place] [address]Ct. Michael Wynne ALP [Catalytic activity/Vol] 96 U/L Normal 46-116 [facility] Comment on above: Performed By: #### L IVER ####[facility] [address] [address]Dr. Michael Wynne ALT [Catalytic activity/Vol] 31 U/L Normal 16-63 [facility] Comment on above: Performed By: #### L IVER ####[facility] [address] [address]Dr. Michael Wynne AST [Catalytic activity/Vol] 18 U/L Normal 15-37 [facility] Comment on above: Performed By: #### L IVER ####[facility] [address] [address]Dr. Michael Wynne BILI, CONJUGATED 0.3 mg/dL Normal 0.0-0.3 [facility] Comment on above: Performed By: #### L IVER ####[facility] [address] [address]Dr. Michael Wynne Bilirubin [Mass/Vol] 1.7 mg/dL Critically high 0.2-1.3 [facility] Comment on above: Performed By: #### L IVER ####[facility] [address] [address]Dr. Michael Wynne Globulin (S) [Mass/Vol] 3.4 g/dL Normal [facility] Comment on above: Performed By: #### L IVER ####[facility] [address] [address]Dr. Michael Wynne Protein [Mass/Vol] 6.6 g/dL Normal 6.1-8.2 [facility] Comment on above: Performed By: #### L IVER ####[facility] [address] [place], [place] [address]UvDr. Michael Wynne PROF CHEM 8 (BAS METB)on Anion gap [Moles/Vol] 10.2 mmol/L Normal [facility] Comment on above: Performed By: #### P OCGLUC #### [facility] [address] [address] [address] Michael Wynne Calcium [Mass/Vol] 8.4 mg/dL Critically low 8.5-10.1 [facility] Comment on above: Performed By: #### P OCGLUC #### [facility] [address] [address] [address] Michael Wynne Chloride [Moles/Vol] 99 mmol/L Normal 98-107 [facility] Comment on above: Performed By: #### P OCGLUC #### [facility] [address] [address] [address] Michael Wynne CO2 [Moles/Vol] 30.7 mmol/L Critically high 22.0-30.0 [facility] Comment on above: Performed By: #### P OCGLUC #### [facility] [address] [address] [address] Michael Wynne Creatinine [Mass/Vol] 0.89 mg/dL Normal 0.66-1.25 [facility] Comment on above: Performed By: #### P OCGLUC #### [facility] [address] [address] [address] Michael Wynne EGFR-AF THAI >60 Normal >=60 [facility] Comment on above: Performed By: #### P OCGLUC #### [facility] [address] [address] [address] Michael Wynne EGFR-NON AF THAI >60 Normal >=60 [facility] Comment on above: Performed By: #### P OCGLUC #### [facility] [address] [address] [address] Michael Wynne Glucose [Mass/Vol] 235 mg/dL Critically high 74-106 [facility] Comment on above: Performed By: #### P OCGLUC #### [facility] [address] [address] [address] Michael Wynne Potassium [Moles/Vol] 3.9 mmol/L Normal 3.4-5.0 [facility] Comment on above: Performed By: #### P OCGLUC #### [facility] [address] [address] [address] Michael Wynne Sodium [Moles/Vol] 136 mmol/L Critically low 137-145 Th [facility] Comment on above: Performed By: #### P OCGLUC #### [facility] [address] [address] [address] Michael Wynne Urea nitrogen [Mass/Vol] 19.0 mg/dL Critically high 7.0-18.0 [facility] Comment on above: Performed By: #### P OCGLUC #### [facility] [address] [address] [address] Michael Wynne Urea nitrogen/Creatinine [Mass ratio] 21.3 mg/mg Normal [facility] Comment on above: Performed By: #### P OCGLUC #### [facility] [address] [address] [address] Michael Wynne Anion gap [Moles/Vol] 13.8 mmol/L Normal [facility] Comment on above: Performed By: #### B MP ####[facility] [address] [address]DrPallavi Wynne Calcium [Mass/Vol] 8.4 mg/dL Critically low 8.5-10.1 [facility] Comment on above: Performed By: #### B MP ####[facility] [address] [address]DrPallavi Wynne Chloride [Moles/Vol] 97 mmol/L Critically low 98-107 [facility] Comment on above: Performed By: #### B MP ####[facility] [address] [address]DrPallavi Wynne CO2 [Moles/Vol] 27.3 mmol/L Normal 22.0-30.0 [facility] Comment on above: Performed By: #### B MP ####[facility] [address] [address]Dr. Michael Wynne Creatinine [Mass/Vol] 1.00 mg/dL Normal 0.66-1.25 [facility] Comment on above: Performed By: #### B MP ####[facility] [address] [address]Dr. Michael Ricci EGFR-AF THAI >60 Normal >=60 [facility] Comment on above: Performed By: #### B MP ####[facility] [address] [address]Dr. Michael Wynne EGFR-NON AF THAI >60 Normal >=60 [facility] Comment on above: Performed By: #### B MP ####[facility] [address] [place], [place] [address]Dr. Michael Wynne Glucose [Mass/Vol] 288 mg/dL Critically high 74-106 T [facility] Comment on above: Performed By: #### B MP ####[facility] [address] [place], [place] [address]Dr. Michael Wynne Potassium [Moles/Vol] 4.1 mmol/L Normal 3.4-5.0 [facility] Comment on above: Performed By: #### B MP ####[facility] [address] [place], [place] [address]Dr. Michael Wynne Sodium [Moles/Vol] 134 mmol/L Critically low 137-145 Th [facility] Comment on above: Performed By: #### B MP ####[facility] [address] [place], [place] [address]Dr. Michael Wynne Urea nitrogen [Mass/Vol] 20.0 mg/dL Critically high 7.0-18.0 [facility] Comment on above: Performed By: #### B MP ####[facility] [address] [place], [place] [address]Dr. Michael Wynne Urea nitrogen/Creatinine [Mass ratio] 20.0 mg/mg Normal [facility] Comment on above: Performed By: #### B MP ####[facility] [address] [place], [place] [address]Dr. Michael Wynne Anion gap [Moles/Vol] 13.0 mmol/L Normal [facility] Comment on above: Performed By: #### B MP #### [facility] [address] [address] [address] Michael Wynne Calcium [Mass/Vol] 7.9 mg/dL Critically low 8.5-10.1 [facility] Comment on above: Performed By: #### B MP #### [facility] [address] [address] [address] Michael Wynne Chloride [Moles/Vol] 98 mmol/L Normal 98-107 [facility] Comment on above: Performed By: #### B MP #### [facility] [address] [place] [address] Dr. Michael Wynne CO2 [Moles/Vol] 28.0 mmol/L Normal 22.0-30.0 [facility] Comment on above: Performed By: #### B MP #### [facility] [address] [place] [address] Dr. Michael Wynne Creatinine [Mass/Vol] 0.80 mg/dL Normal 0.66-1.25 [facility] [facility] Comment on above: Performed By: #### B MP #### [facility] [address] [place] [address] Dr. Michael Wynne EGFR-AF THAI >60 Normal >=60 [facility] Comment on above: Performed By: #### B MP #### [facility] [address] [address] [address] Michael Wynne EGFR-NON AF THAI >60 Normal >=60 [facility] Comment on above: Performed By: #### B MP #### [facility] [address] [address] [address] Michael Wynne Glucose [Mass/Vol] 266 mg/dL Critically high 74-106 T [facility] Comment on above: Performed By: #### B MP #### [facility] [address] [place] [address] Dr. Michael Wynne Potassium [Moles/Vol] 4.0 mmol/L Normal 3.4-5.0 [facility] Comment on above: Performed By: #### B MP #### [facility] [address] [address] [address] Michael Wynne Sodium [Moles/Vol] 135 mmol/L Critically low 137-145 Th [facility] Comment on above: Performed By: #### B MP #### [facility] [address] [address] [address] Michael Wynne Urea nitrogen [Mass/Vol] 19.0 mg/dL Critically high 7.0-18.0 [facility] Comment on above: Performed By: #### B MP #### [facility] [address] [address] [address] Michael Wynne Urea nitrogen/Creatinine [Mass ratio] 23.8 mg/mg Normal [facility] Comment on above: Performed By: #### B MP #### [facility] [address] [address] [address] Michael Wynne Anion gap [Moles/Vol] 15.2 mmol/L Normal [facility] Comment on above: Performed By: #### C VDTBH #### [facility] [address] [address] [address] Michael Wynne Calcium [Mass/Vol] 8.1 mg/dL Critically low 8.5-10.1 Th [facility] Comment on above: Performed By: #### C VDTBH #### [facility] [address] [address] [address] Michael Wynne Chloride [Moles/Vol] 97 mmol/L Critically low 98-107 [facility] Comment on above: Performed By: #### C VDTBH #### [facility] [address] [address] [address] Michael Wynne CO2 [Moles/Vol] 25.9 mmol/L Normal 22.0-30.0 [facility] Comment on above: Performed By: #### C VDTBH #### [facility] [address] [address] [address] Michael Wynne Creatinine [Mass/Vol] 0.98 mg/dL Normal 0.66-1.25 [facility] Comment on above: Performed By: #### C VDTBH #### [facility] [address] [address] [address] Michael Wynne EGFR-AF THAI >60 Normal >=60 [facility] Comment on above: Performed By: #### C VDTBH #### [facility] [address] [address] [address] Michael Wynne EGFR-NON AF THAI >60 Normal >=60 [facility] Comment on above: Performed By: #### C VDTBH #### [facility] [address] [address] [address] Michael Wynne Glucose [Mass/Vol] 313 mg/dL Critically high 74-106 T [facility] Comment on above: Performed By: #### C VDTBH #### [facility] [address] [place] [address] Dr. Michael Wynne Potassium [Moles/Vol] 4.1 mmol/L Normal 3.4-5.0 [facility] Comment on above: Performed By: #### C VDTBH #### [facility] [address] [address] [address] Michael Wynne Sodium [Moles/Vol] 134 mmol/L Critically low 137-145 Th [facility] Comment on above: Performed By: #### C VDTBH #### [facility] [address] [address] [address] Michael Wynne Urea nitrogen [Mass/Vol] 18.0 mg/dL Normal 7.0-18.0 [facility] Comment on above: Performed By: #### C VDTBH #### [facility] [address] [address] [address] Michael Wynne Urea nitrogen/Creatinine [Mass ratio] 18.4 mg/mg Normal [facility] Comment on above: Performed By: #### C VDTBH #### [facility] [address] [address] [address] Michael Wynne SED RATE WESTERGRENon 2021 SED RATE 13 mm/hr Normal <=15 [facility] Comment on above: Performed By: #### P OCGLUC #### [facility] [address] [address] [address] Michael Wynne TSHon 08-19-2021 TSH 2.737 uIU/mL Normal 0.470-4.680 [facility] Comment on above: Performed By: #### C RP, TSH, FT3 #### [facility] [address] [address] [address] Michael Wynne TSH RANGE SEE BELOW Normal The [facility] Comment on above: Result Comment: <0.3 4 UIU/ml HYPERTHYROID 0.34-5.60 UIU/ml EUTHYROID >5.60 UIU/ml HYPOTHYROID Performed By: #### C RP, TSH, FT3 #### [facility] [address] [place] [address] Dr. Michael Wynne XR ABD FLAT_UPon 08-19-2021 XR ABD FLAT_UP EXAMINATION: XR ABD FLAT_UP HISTORY: nausea and vomiting COMPARISON: No relevant comparison available. FINDINGS: BOWEL GAS PATTERN: Non-obstructed. FREE AIR: None. CALCIFICATIONS: None significant. BONES: No fracture or visible bone lesion. OTHER: Negative. IMPRESSION: Nonobstructive bowel gas pattern Electronically authenticated by: ANAY ALBERT Date: 2021-08-19 13:32 Normal The [facility] CBC AUTO DIFFon 08-18-2021 BASO # 0.0 103/ul Normal 0.0-0.1 [facility] Comment on above: Performed By: #### C BC ####[facility] [address] [place], [place] [address]DrPallavi Wynne Basophils/100 WBC (Bld) 0.2 % Normal 0.2-2.0 The [facility] Comment on above: Performed By: #### C BC ####[facility] [address] [place], [place] [address]Dr. Michael Wynne EO # 0.0 103/ul Normal 0.0-0.7 The [facility] Comment on above: Performed By: #### C BC ####[facility] [address] [place], [place] [address]DrPallavi Wynne Eosinophils/100 WBC (Bld) 0.0 % Critically low 0.9-7.0 The [facility] Comment on above: Performed By: #### C BC ####[facility] [address] [place], [place] [address]Dr. Michael Wynne Erythrocyte distribution width (RBC) [Ratio] 12.3 % Normal 11.0-15.0 [facility] Comment on above: Performed By: #### C BC ####[facility] [address] [place], [place] [address]Dr. Michael Wynne Hematocrit (Bld) [Volume fraction] 40.0 % Critically low 42.0-54.0 [facility] Comment on above: Performed By: #### C BC ####[facility] [address] [place], [place] [address]Dr. Michael Wynne Hemoglobin (Bld) [Mass/Vol] 14.3 g/dL Normal 14.0-18.0 [facility] Comment on above: Performed By: #### C BC ####[facility] [address] [place], [place] [address]Dr. Michael Wynne IG # 0.32 10e3/ul Critically high 0.00-0.03 [facility] Comment on above: Performed By: #### C BC ####[facility] [address] [place], [place] [address]Dr. Michael Wynne IG % 1.2 % Critically high 0.0-0.5 [facility] Comment on above: Performed By: #### C BC ####[facility] [address] [place], [place] [address]Dr. Michael Wynne LYMPH # 1.4 103/ul Normal 1.2-3.8 The [facility] Comment on above: Performed By: #### C BC ####[facility] [address] [place], [place] [address]Dr. Michael Wynne Lymphocytes/100 WBC (Bld) 5.4 % Critically low 20.5-60.0 The [facility] Comment on above: Performed By: #### C BC ####[facility] [address] [place], [place] [address]Dr. [place] Wynne MANUAL DIFF REQ NO Normal [facility] Comment on above: Performed By: #### C BC ####[facility] [address] [address]Dr. Michael Ricci MCH (RBC) [Entitic mass] 31.7 pg Normal 25.9-34.0 [facility] Comment on above: Performed By: #### C BC ####[facility] [address] [address]Dr. Michael Ricci MCHC (RBC) [Mass/Vol] 35.8 g/dL Critically high 29.9-35.2 The [facility] Comment on above: Performed By: #### C BC ####[facility] [address] [address]Dr. [place] Wynne MCV (RBC) [Entitic vol] 88.7 fL Normal 80.0-94.0 The [facility] Comment on above: Performed By: #### C BC ####[facility] [address] [address]Dr. Michael Wynne MONO # 1.0 103/ul Critically high 0.3-0.8 [facility] Comment on above: Performed By: #### C BC ####[facility] [address] [address]Dr. Michael Wynne Monocytes/100 WBC (Bld) 3.7 % Normal 1.7-12.0 The [facility] Comment on above: Performed By: #### C BC ####[facility] [address] [address]Dr. Michael Wynne NEUT # 23.4 103/ul Critically high 1.4-6.5 [facility] Comment on above: Performed By: #### C BC ####[facility] [address] [address]Dr. Michael Wynne Neutrophils/100 WBC (Bld) 89.5 % Critically high 43.0-75.0 The [facility] Comment on above: Performed By: #### C BC ####[facility] [address] [address]Dr. Michael Wynne Platelet mean volume (Bld) [Entitic vol] 10.5 fL Normal 9.5-13.5 [facility] Comment on above: Performed By: #### C BC ####[facility] [address] [address]DrPallavi Wynne PLT 297 103/ul Normal 150-450 [facility] Comment on above: Performed By: #### C BC ####[facility] [address] [address]Dr. Michael Wynne RBC 4.51 106/ul Critically low 4.70-6.10 [facility] Comment on above: Performed By: #### C BC ####[facility] [address] [address]DrPallavi Wynne WBC 26.1 103/ul Critically high 4.0-11.0 [facility] Comment on above: Performed By: #### C BC ####[facility] [address] [address]Dr. Michael Wynne PROF CHEM 8 (BAS METB)on Anion gap [Moles/Vol] 10.4 mmol/L Normal [facility] Comment on above: Performed By: #### P OCGLUC #### [facility] [address] [address] [address] Michael Wynne Calcium [Mass/Vol] 7.9 mg/dL Critically low 8.5-10.1 [facility] Comment on above: Performed By: #### P OCGLUC #### [facility] [address] [address] [address] Michael Wynne Chloride [Moles/Vol] 100 mmol/L Normal 98-107 [facility] Comment on above: Performed By: #### P OCGLUC #### [facility] [address] [address] [address] Michael Wynne CO2 [Moles/Vol] 30.6 mmol/L Critically high 22.0-30.0 [facility] Comment on above: Performed By: #### P OCGLUC #### [facility] [address] [address] [address] Michael Wynne Creatinine [Mass/Vol] 1.06 mg/dL Normal 0.66-1.25 [facility] Comment on above: Performed By: #### P OCGLUC #### [facility] [address] [address] [address] Michael Wynne EGFR-AF THAI >60 Normal >=60 [facility] Comment on above: Performed By: #### P OCGLUC #### [facility] [address] [address] [address] Michael Wynne EGFR-NON AF THAI >60 Normal >=60 [facility] Comment on above: Performed By: #### P OCGLUC #### [facility] [address] [address] [address] Michael Wynne Glucose [Mass/Vol] 283 mg/dL Critically high 74-106 [facility] Comment on above: Performed By: #### P OCGLUC #### [facility] [address] [address] [address] Michael Wynne Potassium [Moles/Vol] 4.0 mmol/L Normal 3.4-5.0 [facility] Comment on above: Performed By: #### P OCGLUC #### [facility] [address] [address] [address] Michael Wynne Sodium [Moles/Vol] 137 mmol/L Normal 137-145 [facility] Comment on above: Performed By: #### P OCGLUC #### [facility] [address] [address] [address] Michael Wynne Urea nitrogen [Mass/Vol] 23.0 mg/dL Critically high 7.0-18.0 [facility] Comment on above: Performed By: #### P OCGLUC #### [facility] [address] [address] [address] Michael Wynne Urea nitrogen/Creatinine [Mass ratio] 21.7 mg/mg Normal [facility] Comment on above: Performed By: #### P OCGLUC #### [facility] [address] [address] [address] Michael Wynne Anion gap [Moles/Vol] 16.9 mmol/L Normal [facility] Comment on above: Performed By: #### B MP ####[facility] [address] [address]Dr. Michael Wynne Calcium [Mass/Vol] 8.0 mg/dL Critically low 8.5-10.1 Th e [facility] Comment on above: Performed By: #### B MP ####[facility] [address] [place], [place] [address]Dr. Michael Wynne Chloride [Moles/Vol] 98 mmol/L Normal 98-107 [facility] Comment on above: Performed By: #### B MP ####[facility] [address] [place], [place] [address]Dr. Michael Wynne CO2 [Moles/Vol] 24.4 mmol/L Normal 22.0-30.0 [facility] Comment on above: Performed By: #### B MP ####[facility] [address] [place], [place] [address]DrPallavi Wynne Creatinine [Mass/Vol] 1.08 mg/dL Normal 0.66-1.25 [facility] Comment on above: Performed By: #### B MP ####[facility] [address] [place], [place] [address]Dr. Michael Wynne EGFR-AF THAI >60 Normal >=60 [facility] Comment on above: Performed By: #### B MP ####[facility] [address] [place], [place] [address]DrPallavi Wynne EGFR-NON AF THAI >60 Normal >=60 [facility] Comment on above: Performed By: #### B MP ####[facility] [address] [address]DrPallavi Wynne Glucose [Mass/Vol] 348 mg/dL Critically high 74-106 T [facility] Comment on above: Performed By: #### B MP ####[facility] [address] [place], [place] [address]DrPallavi Wynne Potassium [Moles/Vol] 4.3 mmol/L Normal 3.4-5.0 [facility] Comment on above: Performed By: #### B MP ####[facility] [address] [place], [place] [address]RmDr. Michael Wynne Sodium [Moles/Vol] 135 mmol/L Critically low 137-145 Th [facility] Comment on above: Performed By: #### B MP ####[facility] [address] [address]Dr. Michael Wynne Urea nitrogen [Mass/Vol] 25.0 mg/dL Critically high 7.0-18.0 [facility] Comment on above: Performed By: #### B MP ####[facility] [address] [address]DrPallavi Wynne Urea nitrogen/Creatinine [Mass ratio] 23.1 mg/mg Normal [facility] Comment on above: Performed By: #### B MP ####[facility] [address] [address]Dr. Michael Wynne Anion gap [Moles/Vol] 15.6 mmol/L Normal [facility] Comment on above: Performed By: #### P OCGLUC #### [facility] [address] [address] [address] Michael Wynne Calcium [Mass/Vol] 8.2 mg/dL Critically low 8.5-10.1 Th [facility] Comment on above: Performed By: #### P OCGLUC #### [facility] [address] [address] [address] Michael Wynne Chloride [Moles/Vol] 98 mmol/L Normal 98-107 [facility] Comment on above: Performed By: #### P OCGLUC #### [facility] [address] [address] [address] Michael Wynne CO2 [Moles/Vol] 26.2 mmol/L Normal 22.0-30.0 [facility] Comment on above: Performed By: #### P OCGLUC #### [facility] [address] [address] [address] Michael Wynne Creatinine [Mass/Vol] 1.13 mg/dL Normal 0.66-1.25 [facility] Comment on above: Performed By: #### P OCGLUC #### [facility] [address] [address] [address] Michael Wynne EGFR-AF THAI >60 Normal >=60 [facility] Comment on above: Performed By: #### P OCGLUC #### [facility] [address] [address] [address] Michael Wynne EGFR-NON AF THAI >60 Normal >=60 [facility] Comment on above: Performed By: #### P OCGLUC #### [facility] [address] [address] [address] Michael Wynne Glucose [Mass/Vol] 339 mg/dL Critically high 74-106 T [facility] Comment on above: Performed By: #### P OCGLUC #### [facility] [address] [address] [address] Michael Wynne Potassium [Moles/Vol] 3.8 mmol/L Normal 3.4-5.0 [facility] Comment on above: Performed By: #### P OCGLUC #### [facility] [address] [address] [address] Michael Wynne Sodium [Moles/Vol] 136 mmol/L Critically low 137-145 Th [facility] Comment on above: Performed By: #### P OCGLUC #### [facility] [address] [address] [address] Michael Wynne Urea nitrogen [Mass/Vol] 27.0 mg/dL Critically high 7.0-18.0 [facility] Comment on above: Performed By: #### P OCGLUC #### [facility] [address] [address] [address] Michael yWnne Urea nitrogen/Creatinine [Mass ratio] 23.9 mg/mg Normal [facility] Comment on above: Performed By: #### P OCGLUC #### [facility] [address] [address] [address] Michael Wynne Anion gap [Moles/Vol] 14.1 mmol/L Normal [facility] Comment on above: Performed By: #### B MP ####[facility] [address] [address]Dr. Michael Wynne Calcium [Mass/Vol] 8.6 mg/dL Normal 8.5-10.1 [facility] Comment on above: Performed By: #### B MP ####[facility] [address] [address]Dr. Michael Wynne Chloride [Moles/Vol] 102 mmol/L Normal 98-107 [facility] Comment on above: Performed By: #### B MP ####[facility] [address] [address]Dr. Michael Wynne CO2 [Moles/Vol] 27.6 mmol/L Normal 22.0-30.0 [facility] Comment on above: Performed By: #### B MP ####[facility] [address] [place], [place] [address]Dr. Michael Wynne Creatinine [Mass/Vol] 1.07 mg/dL Normal 0.66-1.25 [facility] Comment on above: Performed By: #### B MP ####[facility] [address] [place], [place] [address]Dr. Michael Wynne EGFR-AF THAI >60 Normal >=60 [facility] Comment on above: Performed By: #### B MP ####[facility] [address] [place], [place] [address]Dr. Michael Wynne EGFR-NON AF THAI >60 Normal >=60 [facility] Comment on above: Performed By: #### B MP ####[facility] [address] [place], [place] [address]Dr. Michael Wynne Glucose [Mass/Vol] 143 mg/dL Critically high 74-106 [facility] Comment on above: Performed By: #### B MP ####[facility] [address] [place], [place] [address]Dr. Michael Wynne Potassium [Moles/Vol] 3.7 mmol/L Normal 3.4-5.0 [facility] Comment on above: Performed By: #### B MP ####[facility] [address] [id number]. Michael Wynne Sodium [Moles/Vol] 140 mmol/L Normal 137-145 [facility] Comment on above: Performed By: #### B MP ####[facility] [address] [address]Dr. Michael Wynne Urea nitrogen [Mass/Vol] 31.0 mg/dL Critically high 7.0-18.0 [facility] Comment on above: Performed By: #### B MP ####[facility] [address] [address]Dr. Michael Wynne Urea nitrogen/Creatinine [Mass ratio] 29.0 mg/mg Normal [facility] Comment on above: Performed By: #### B MP ####[facility] [address] [address]Dr. Michael Wynne XR CHEST 1 Von 08-18-2021 XR CHEST [...] ANAY ALBERT Date: 2021-08-18 09:08 Normal The [facility] CBC AUTO DIFFon 08-17-2021 BASO # 0.1 103/ul Normal 0.0-0.1 [facility] Comment on above: Performed By: #### C BC #### [facility] [address] [place] [address] Dr. Michael Wynne Basophils/100 WBC (Bld) 0.2 % Normal 0.2-2.0 [facility] Comment on above: Performed By: #### C BC #### [facility] [address] [place] [address] Dr. Michael Wynne EO # 0.0 103/ul Normal 0.0-0.7 [facility] Comment on above: Performed By: #### C BC #### [facility] [address] [place] [address] Dr. Michael Wynne Eosinophils/100 WBC (Bld) 0.0 % Critically low 0.9-7.0 [facility] Comment on above: Performed By: #### C BC #### [facility] [address] [place] [address] Dr. Michael Wynne Erythrocyte distribution width (RBC) [Ratio] 11.9 % Normal 11.0-15.0 [facility] Comment on above: Performed By: #### C BC #### [facility] [address] [place] [address] Dr. Michael Wynne Hematocrit (Bld) [Volume fraction] 42.9 % Normal 42.0-54.0 [facility] Comment on above: Performed By: #### C BC #### [facility] [address] [place] [address] Dr. Michael Wynne Hemoglobin (Bld) [Mass/Vol] 15.2 g/dL Normal 14.0-18.0 [facility] Comment on above: Performed By: #### C BC #### [facility] [address] [place] [address] Dr. Michael Wynne IG # 0.28 10e3/ul Critically high 0.00-0.03 [facility] Comment on above: Performed By: #### C BC #### [facility] [address] [place] [address] Dr. Michael Wynne IG % 1.0 % Critically high 0.0-0.5 [facility] Comment on above: Performed By: #### C BC #### [facility] [address] [place] [address] Dr. Michael Wynne LYMPH # 1.4 103/ul Normal 1.2-3.8 [facility] Comment on above: Performed By: #### C BC #### [facility] [address] [place] [address] Dr. Michael Wynne Lymphocytes/100 WBC (Bld) 4.9 % Critically low 20.5-60.0 [facility] Comment on above: Performed By: #### C BC #### [facility] [address] [place] [address] Dr. Michael Wynne MANUAL DIFF REQ NO Normal [facility] Comment on above: Performed By: #### C BC #### [facility] [address] [place] [address] Dr. iMchael Wynne MCH (RBC) [Entitic mass] 31.6 pg Normal 25.9-34.0 [facility] Comment on above: Performed By: #### C BC #### [facility] [address] [place] [address] Dr. Michael Wynne MCHC (RBC) [Mass/Vol] 35.4 g/dL Critically high 29.9-35.2 [facility] Comment on above: Performed By: #### C BC #### [facility] [address] [place] [address] Dr. Michael Wynne MCV (RBC) [Entitic vol] 89.2 fL Normal 80.0-94.0 [facility] Comment on above: Performed By: #### C BC #### [facility] [address] [place] [address] Dr. Michael Wynne MONO # 0.8 103/ul Normal 0.3-0.8 [facility] Comment on above: Performed By: #### C BC #### [facility] [address] [place] [address] Dr. Michael Wynne Monocytes/100 WBC (Bld) 2.7 % Normal 1.7-12.0 [facility] Comment on above: Performed By: #### C BC #### [facility] [address] [place] [address] Dr. Michael Wynne NEUT # 26.1 103/ul Critically high 1.4-6.5 [facility] Comment on above: Performed By: #### C BC #### [facility] [address] [place] [address] Dr. Michael Wynne Neutrophils/100 WBC (Bld) 91.2 % Critically high 43.0-75.0 [facility] Comment on above: Performed By: #### C BC #### [facility] [address] [address] [address] Michael Wynne Platelet mean volume (Bld) [Entitic vol] 10.7 fL Normal 9.5-13.5 [facility] Comment on above: Performed By: #### C BC #### [facility] [address] [address] [address] Michael Wynne PLT 324 103/ul Normal 150-450 [facility] Comment on above: Performed By: #### C BC #### [facility] [address] [address] [address] Michael Wynne RBC 4.81 106/ul Normal 4.70-6.10 [facility] Comment on above: Performed By: #### C BC #### [facility] [address] [address] [address] Michael Wynne WBC 28.6 103/ul Critically high 4.0-11.0 [facility] Comment on above: Performed By: #### C BC #### [facility] [address] [address] [address] Michael Wynne CULTURE URINEon 08-17-2021 CULTURE URINE Culture Observations: No growth Normal [facility] Comment on above: Performed By: #### U RCX ####[facility] [address] [address]Dr. Michael Wynne POINT OF CARE GLUCOSEon 07-26 Glucose [Mass/Vol] 433 mg/dL Critically high 74-106 [facility] Comment on above: Performed By: #### P OCGLUC #### [facility] [address] [address] [address] Michael Wynne POCGLUC >600 Critically high 74-106 [facility] Comment on above: Result Comment: Lab Draw Ordered Performed By: #### P OCGLUC #### [facility] [address] [place] [address] Dr. Michael Wynne PROF CHEM 8 (BAS METB)on Anion gap [Moles/Vol] 14.6 mmol/L Normal [facility] Comment on above: Performed By: #### B MP ####[facility] [address] [address]Dr. Michael Wynne Calcium [Mass/Vol] 8.4 mg/dL Critically low 8.5-10.1 [facility] Comment on above: Performed By: #### B MP ####[facility] [address] [address]Dr. Michael Wynne Chloride [Moles/Vol] 102 mmol/L Normal 98-107 [facility] Comment on above: Performed By: #### B MP ####[facility] [address] [address]Dr. Michael Wynne CO2 [Moles/Vol] 26.5 mmol/L Normal 22.0-30.0 [facility] Comment on above: Performed By: #### B MP ####[facility] [address] [address]Dr. Michael Wynne Creatinine [Mass/Vol] 1.46 mg/dL Critically high 0.66-1.25 [facility] Comment on above: Performed By: #### B MP ####[facility] [address] [address]Dr. Michael Wynne EGFR-AF THAI >60 Normal >=60 [facility] Comment on above: Performed By: #### B MP ####[facility] [address] [address]Dr. Michael Wynne Performed By: #### P OCGLUC #### [facility] [address] [address] [address] Michael Wynne EGFR-NON AF THAI 54 mL/min/1.73m2 Critically low >=60 [facility] Comment on above: Performed By: #### B MP ####[facility] [address] [place], [place] [address]DrPallavi Wynne Glucose [Mass/Vol] 343 mg/dL Critically high 74-106 [facility] Comment on above: Performed By: #### B MP ####[facility] [address] [place], [place] [address]DrPallavi Wynne Potassium [Moles/Vol] 4.1 mmol/L Normal 3.4-5.0 [facility] Comment on above: Performed By: #### B MP ####[facility] [address] [address]Dr. Michael Wynne Sodium [Moles/Vol] 139 mmol/L Normal 137-145 [facility] Comment on above: Performed By: #### B MP ####[facility] [address] [address]Dr. Michael Wynne Urea nitrogen [Mass/Vol] 38.0 mg/dL Critically high 7.0-18.0 [facility] Comment on above: Performed By: #### B MP ####[facility] [address] [address]Dr. Michael Wynne Urea nitrogen/Creatinine [Mass ratio] 26.0 mg/mg Normal [facility] Comment on above: Performed By: #### B MP ####[facility] [address] [address]Dr. Michael Wynne Anion gap [Moles/Vol] 19.0 mmol/L Normal [facility] Comment on above: Performed By: #### P OCGLUC #### [facility] [address] [address] [address] Michael Wynne Calcium [Mass/Vol] 8.5 mg/dL Normal 8.5-10.1 [facility] Comment on above: Performed By: #### P OCGLUC #### [facility] [address] [address] [address] Michael Wynne Chloride [Moles/Vol] 101 mmol/L Normal 98-107 [facility] Comment on above: Performed By: #### P OCGLUC #### [facility] [address] [address] [address] Michael Wynne CO2 [Moles/Vol] 21.8 mmol/L Critically low 22.0-30.0 [facility] Comment on above: Performed By: #### P OCGLUC #### [facility] [address] [address] [address] Michael Wynne Creatinine [Mass/Vol] 1.41 mg/dL Critically high 0.66-1.25 [facility] Comment on above: Performed By: #### P OCGLUC #### [facility] [address] [address] [address] Michael Wynne EGFR-NON AF THAI 56 mL/min/1.73m2 Critically low >=60 [facility] Comment on above: Performed By: #### P OCGLUC #### [facility] [address] [address] [address] Michael Wynne Glucose [Mass/Vol] 393 mg/dL Critically high 74-106 [facility] Comment on above: Performed By: #### P OCGLUC #### [facility] [address] [address] [address] Michael Wynne Potassium [Moles/Vol] 4.8 mmol/L Normal 3.4-5.0 [facility] Comment on above: Performed By: #### P OCGLUC #### [facility] [address] [address] [address] Michael Wynne Sodium [Moles/Vol] 137 mmol/L Normal 137-145 [facility] Comment on above: Performed By: #### P OCGLUC #### [facility] [address] [address] [address] Michael Wynne Urea nitrogen [Mass/Vol] 35.0 mg/dL Critically high 7.0-18.0 [facility] Comment on above: Performed By: #### P OCGLUC #### [facility] [address] [address] [address] Michael Wynne Urea nitrogen/Creatinine [Mass ratio] 24.8 mg/mg Normal [facility] Comment on above: Performed By: #### P OCGLUC #### [facility] [address] [address] [address] Michael Wynne Anion gap [Moles/Vol] 18.0 mmol/L Normal [facility] Comment on above: Performed By: #### P OCGLUC #### [facility] [address] [address] [address] Michael Wynne Calcium [Mass/Vol] 8.9 mg/dL Normal 8.5-10.1 [facility] Comment on above: Performed By: #### P OCGLUC #### [facility] [address] [address] [address] Michael Wynne Chloride [Moles/Vol] 103 mmol/L Normal 98-107 [facility] Comment on above: Performed By: #### P OCGLUC #### [facility] [address] [address] [address] Michael Wynne CO2 [Moles/Vol] 22.7 mmol/L Normal 22.0-30.0 [facility] Comment on above: Performed By: #### P OCGLUC #### [facility] [address] [address] [address] Michael Wynne Creatinine [Mass/Vol] 1.54 mg/dL Critically high 0.66-1.25 [facility] Comment on above: Performed By: #### P OCGLUC #### [facility] [address] [address] [address] Michael Wynne EGFR-AF THAI >60 Normal >=60 [facility] Comment on above: Performed By: #### P OCGLUC #### [facility] [address] [address] [address] Michael Wynne EGFR-NON AF THAI 51 mL/min/1.73m2 Critically low >=60 [facility] Comment on above: Performed By: #### P OCGLUC #### [facility] [address] [address] [address] Michael Wynne Glucose [Mass/Vol] 375 mg/dL Critically high 74-106 [facility] Comment on above: Performed By: #### P OCGLUC #### [facility] [address] [address] [address] Michael Wynne Potassium [Moles/Vol] 4.7 mmol/L Normal 3.4-5.0 [facility] Comment on above: Performed By: #### P OCGLUC #### [facility] [address] [address] [address] Michael Wynne Sodium [Moles/Vol] 139 mmol/L Normal 137-145 [facility] Comment on above: Performed By: #### P OCGLUC #### [facility] [address] [address] [address] Michael Wynne Urea nitrogen [Mass/Vol] 37.0 mg/dL Critically high 7.0-18.0 [facility] Comment on above: Performed By: #### P OCGLUC #### [facility] [address] [address] [address] Michael Wynne Urea nitrogen/Creatinine [Mass ratio] 24.0 mg/mg Normal [facility] Comment on above: Performed By: #### P OCGLUC #### [facility] [address] [address] [address] Michael Wynne Anion gap [Moles/Vol] 30.3 mmol/L Normal [facility] Comment on above: Performed By: #### B MP #### [facility] [address] [address] [address] Michael Wynne Calcium [Mass/Vol] 9.2 mg/dL Normal 8.5-10.1 [facility] Comment on above: Performed By: #### B MP #### [facility] [address] [address] [address] Michael Wynne Chloride [Moles/Vol] 95 mmol/L Critically low 98-107 [facility] Comment on above: Performed By: #### B MP #### [facility] [address] [address] [address] Michael Wynne CO2 [Moles/Vol] 15.0 mmol/L Critically low 22.0-30.0 [facility] Comment on above: Performed By: #### B MP #### [facility] [address] [address] [address] Michael Wynne Creatinine [Mass/Vol] 1.62 mg/dL Critically high 0.66-1.25 [facility] Comment on above: Performed By: #### B MP #### [facility] [address] [address] [address] Michael Wynne EGFR-AF THAI 58 mL/min/1.73m2 Critically low >=60 [facility] Comment on above: Performed By: #### B MP #### [facility] [address] [address] [address] Michael Wynne EGFR-NON AF THAI 48 mL/min/1.73m2 Critically low >=60 [facility] Comment on above: Performed By: #### B MP #### [facility] [address] [address] [address] Michael Wynne Glucose [Mass/Vol] 706 mg/dL Critically high 74-106 T [facility] Comment on above: Result Comment: Test Repeated. Critical Value Verified Performed By: #### B MP #### [facility] [address] [address] [address] Michael Wynne Potassium [Moles/Vol] 5.3 mmol/L Critically high 3.4-5.0 [facility] Comment on above: Performed By: #### B MP #### [facility] [address] [address] [address] Michael Wynne Sodium [Moles/Vol] 135 mmol/L Critically low 137-145 Th [facility] Comment on above: Performed By: #### B MP #### [facility] [address] [address] [address] Michael Wynne Urea nitrogen [Mass/Vol] 40.0 mg/dL Critically high 7.0-18.0 [facility] Comment on above: Performed By: #### B MP #### [facility] [address] [address] [address] Michael Wynne Urea nitrogen/Creatinine [Mass ratio] 24.7 mg/mg Normal [facility] Comment on above: Performed By: #### B MP #### [facility] [id number] Michael Wynne UA RANDOM W/MICROSCOPICon BACTERIA NONE SEEN Normal NONE SEEN [facility] Comment on above: Performed By: #### C VDTBH #### [facility] [address] [address] [address] Michael Wynne Bilirubin Ql (U) Negative Normal NEGATIVE [facility] Comment on above: Performed By: #### C VDTBH #### [facility] [address] [place] [address] Dr. Michael Wynne CAST NONE SEEN Normal NONE SEEN [facility] Comment on above: Performed By: #### C VDTBH #### [facility] [address] [place] [address] Dr. Michael Wynne Clarity (U) CLEAR Normal CLEAR [facility] Comment on above: Performed By: #### C VDTBH #### [facility] [address] [place] [address] Dr. Michael Wynne Color (U) LT. YELLOW Normal YELLOW [facility] Comment on above: Performed By: #### C VDTBH #### [facility] [address] [place] [address] Dr. Michael Wynne Crystals LM Nom (Urine sed) NONE SEEN Normal NONE SEEN [facility] Comment on above: Performed By: #### C VDTBH #### [facility] [address] [place] [address] Dr. Michael Wynne Epithelial cells LM Ql (Urine sed) RARE Normal NONE SEEN /RARE [facility] Comment on above: Performed By: #### C VDTBH #### [facility] [address] [place] [address] Dr. Michael Wynne Glucose Ql (U) >1000 Abnormal NEGATIVE [facility] Comment on above: Performed By: #### C VDTBH #### [facility] [address] [place] [address] Dr. Michael Wynne Hemoglobin Ql (U) SMALL Abnormal NEGATIVE [facility] Comment on above: Performed By: #### C VDTBH #### [facility] [address] [place] [address] Dr. Michael Wynne Ketones Ql (U) >=80 Abnormal NEGATIVE [facility] Comment on above: Performed By: #### C VDTBH #### [facility] [address] [place] [address] Dr. Michael Wynne LEUKOCYTES Negative Normal NEGATIVE [facility] Comment on above: Performed By: #### C VDTBH #### [facility] [address] [place] [address] Dr. Michael Wynne MUCOUS NONE SEEN Normal NONE SEEN [facility] Comment on above: Performed By: #### C VDTBH #### [facility] [address] [place] [address] Dr. Michael Wynne Nitrite Ql (U) Negative Normal NEGATIVE [facility] Comment on above: Performed By: #### C VDTBH #### [facility] [address] [place] [address] Dr. Michael Wynne pH (U) 5.0 [pH] Normal 5-9 [facility] Comment on above: Performed By: #### C VDTBH #### [facility] [address] [place] [address] Dr. Michael Wynne RBC 10-20 Abnormal 0-2 [facility] Comment on above: Performed By: #### C VDTBH #### [facility] [address] [place] [address] Dr. Michael Wynne SPEC GRAVITY 1.020 Normal 1.005-<=1.025 [facility] Comment on above: Performed By: #### C VDTBH #### [facility] [address] [place] [address] Dr. Michael Wynne UA PROTEIN TRACE Normal NEGATIVE/ TRACE [facility] Comment on above: Performed By: #### C VDTBH #### [facility] [address] [place] [address] Dr. Michael Wynne Urobilinogen Qn (U) 0.2 {Barbie'U}/dL Normal 0.2 - 1. 0 [facility] Comment on above: Performed By: #### C VDTBH #### [facility] [address] [place] [address] Dr. Michael Wynne WBC 0-2 Abnormal NONE SEEN [facility] Comment on above: Performed By: #### C VDTBH #### [facility] [address] [place] [address] Dr. Michael Wynne ACETONE SERUMon 08-16-2021 ACETONE SMALL Abnormal NEGATIVE [facility] Comment on above: Performed By: #### A CETON ####[facility] [address] [id number]. Michael Wynne CBC W MANUAL DIFFon 08-17-19 22 ATYPICAL LYMPH # 0.26 103/ul Normal [facility] Comment on above: Performed By: #### C GILMER ####[facility] [address] [id number]. Michael Wynne ATYPICAL LYMPH % 1 % Normal [facility] Comment on above: Performed By: #### C BCFUAD ####[facility] [address] [id number]. Michael Wynne BAND # 0.5 103/ul Critically high 0.0-0.3 [facility] Comment on above: Performed By: #### C BCFUAD ####[facility] [address] [address]Dr. Michael Wynne BAND % 2 % Normal 0-5 [facility] Comment on above: Performed By: #### C GILMER ####[facility] [address] [address]Dr. Michael Wynne BASOM # 0.00 103/ul Normal 0.00-0.10 [facility] Comment on above: Performed By: #### C BCFUAD ####[facility] [address] [address]Dr. Michael Wynne BASOM % 0.0 % Critically low 0.2-2.0 [facility] Comment on above: Performed By: #### C BCFUAD ####[facility] [address] [address]Dr. Michael Wynne BLAST # Normal [facility] Comment on above: Performed By: #### C BCFUAD ####[facility] [address] [place], [place] [address]Dr. Michael Wynne BLAST % Normal [facility] Comment on above: Performed By: #### C BCFUAD ####[facility] [address] [address]Dr. Michael Wynne CORRECTED WBC Normal 4.0-11.[address] [facility] Comment on above: Performed By: #### C GILMER ####[facility] [address] [place], [place] [address]Ar. Michael Wynne EOS # 0.00 103/ul Normal 0.00-0.70 [facility] Comment on above: Performed By: #### C GILMER ####[facility] [address] [place], [place] [address]My. Michael Wynne EOS% 0.0 % Critically low 0.9-7.0 [facility] Comment on above: Performed By: #### C GILMER ####[facility] [address] [place], [place] [address]Qo. Michael Wynne HCT 47.1 % Normal 42.0-54.0 [facility] Comment on above: Performed By: #### C GILMER ####[facility] [address] [address]Dr. Michael Wynne HGB 16.7 g/dl Normal 14.0-18.0 [facility] Comment on above: Performed By: #### C GILMER ####[facility] [address] [place], [place] [address]He. Michael Wynne LYMPHM # 1.03 103/ul Critically low 1.20-3.80 [facility] Comment on above: Performed By: #### C GILMER ####[facility] [address] [id number]. Michael Wynne LYMPHM% 4.0 % Critically low 20.5-60.0 [facility] Comment on above: Performed By: #### C GILMER ####[facility] [address] [place], [place] [address]En. Michael Wynne MCH 31.4 pg Normal 25.9-34.0 [facility] Comment on above: Performed By: #### C GILMER ####[facility] [address] [place], [place] [address]Ki. Michael Wynne MCHC 35.5 g/dl Critically high 29.9-35.2 [facility] Comment on above: Performed By: #### C GILMER ####[facility] [address] [address]Dr. Michael Wynne MCV 88.5 fL Normal 80.0-94.0 [facility] Comment on above: Performed By: #### C GILMER ####[facility] [address] [address]Dr. Michael Wynne METAMYELOCYTE # Normal [facility] Comment on above: Performed By: #### C GILMER ####[facility] [address] [address]Dr. Michael Wynne METAMYELOCYTE % Normal [facility] Comment on above: Performed By: #### C GILMER ####[facility] [address] [address]Dr. Michael Wynne MONOM# 0.77 103/ul Normal 0.30-0.80 [facility] Comment on above: Performed By: #### C GILMER ####[facility] [address] [address]Dr. Michael Wynne MONOM% 3.0 % Normal 1.7-12.0 [facility] Comment on above: Performed By: #### C GILMER ####[facility] [address] [address]Dr. Michael Wynne MPV 11.2 fL Normal 9.5-13.5 [facility] Comment on above: Performed By: #### C GILMER ####[facility] [address] [address]Dr. Michael Wynne MYELOCYTE # Normal [facility] Comment on above: Performed By: #### C GILMER ####[facility] [address] [place] [address]Dr. Michael Wynne MYELOCYTE % Normal [facility] Comment on above: Performed By: #### C GILMER ####[facility] [address] [place] [address]Dr. Michael Wynne NRBC Normal [facility] Comment on above: Performed By: #### C GILMER ####[facility] [address] [place] [address]Dr. Michael Wynne PLT 359 103/ul Normal 150-450 [facility] Comment on above: Performed By: #### Emma SCHERER ####[facility] [address] [address]Dr. Michael Wynne RBC 5.32 106/ul Normal 4.70-6.10 [facility] Comment on above: Performed By: #### Emma SCHERER ####[facility] [address] [address]Dr. Michael Wynne RDW 11.7 % Normal 11.0-15.0 [facility] Comment on above: Performed By: #### Emma SCHERER ####[facility] [address] [place] [address]Dr. Michael Wynne SEG # 23.13 103/ul Critically high 1.40-6.50 [facility] Comment on above: Performed By: #### Emma SCHERER ####[facility] [address] [place], [place] [address]Dr. Michael Wynne SEG % 90.0 % Critically high 43.0-75.0 [facility] Comment on above: Performed By: #### Emma SCHERER ####[facility] [address] [place] [address]Dr. Michael Wynne WBC 25.7 103/ul Critically high 4.0-11.0 [facility] Comment on above: Performed By: #### Emma SCHERER ####[facility] [address] [place], [place] [address]Dr. Michael Wynne CULTURE BLOODon 08-16-2021 Microscopic examination of blood, culture Culture Observations: No growth at 5 days. Isolate 1 BC_BA_NA Normal [facility] Comment on above: Performed By: #### B LDCX2 ####[facility] [address] [place] [address]Dr. Michael Wynne Microscopic examination of blood, culture Culture Observations: No growth at 5 days Normal [facility] Comment on above: Performed By: #### B LDCX1 ####[facility] [address] [place] [address]Dr. Michael Wynne Covid-19 PCR (CVDTB)on 07-26 SARS-CoV-2 (COVID-19) RNA DAMON+probe Ql (Unsp spec) Not detected Normal NOT DETECTED [facility] Comment on above: Result Comment: This test is not yet approved or cleared by the [place] FDA. When there are no FDA-approved or cleared tests available, and other criteria are met, FDA can make tests available under an emergency access mechanism called an Emergency Use Authorization (EUA). The EUA for this test is supported by the [place] of Health and Human Service's (HHS's) declaration [...] SARS-CoV-2. Performed By: #### C VDTBH #### [facility] [address] [address] [address] Michael Wynne INFLUENZA A AND B [facility]on 08-[facility] Normal [facility] Comment on above: Result Comment: Nega tive for Flu A protein angiten. Infection due to Flu A cannot be ruled out. Flu A angiten in the sample may be below the detection limit of the test. Performed By: #### I NFLUAB ####[facility] [address] [place], [place] [address]XrDr. Michael Wynne INFLUBNEGH SEE BELOW Normal [facility] Comment on above: Result Comment: Nega tive for Flu B protein antigen. Infection due to Flu B cannot be ruled out. Flu B antigen in the sample may be below the detection limit of the test. Performed By: #### I NFLUAB ####[facility] [address] [place] [address]Dr. Rodriguez Wynne INFLUENZA A AG Negative Normal NEGATIVE SEE COMMENT [facility] Comment on above: Performed By: #### I NFLUAB ####[facility] [address] [place] [address]Dr. Michael Wynne INFLUENZA B AG Negative Normal NEGATIVE SEE COMMENT [facility] Comment on above: Performed By: #### I NFLUAB ####[facility] [address] [place] [address]Dr. Michael Wynne INTERNAL CONTROLS Within Normal Limits Normal Wi thin Normal Limits [facility] Comment on above: Performed By: #### I NFLUAB ####[facility] [address] [place], [place] [address]Dr. Michael Wynne LIPASEon 08-16-2021 Lipase [Catalytic activity/Vol] 25.0 U/L Normal 23.0-300.0 [facility] Comment on above: Performed By: #### L CURTIS COATES HSTROPN, BMP ####[facility] [address] [place], [place] [address]Dr. Michael Wynne LIVER PROFILEon 08-16-2021 Albumin [Mass/Vol] 4.3 g/dL Normal 3.4-5.0 [facility] Comment on above: Performed By: #### L IVNIRU LIPA, HSTROPN, BMP ####[facility] [address] [place], [place] [address]Dr. Michael Wynne Albumin/Globulin [Mass ratio] 1.1 {ratio} Normal [facility] Comment on above: Performed By: #### L IVER LIPA, HSTROPN, BMP ####[facility] [address] [place] [place] [address]Dr. Michael Wynne ALP [Catalytic activity/Vol] 156 U/L Critically high 46-116 [facility] Comment on above: Performed By: #### L IVER LIPA, HSTROPN, BMP ####[facility] [address] [place] [address]Dr. Michael Wynne ALT [Catalytic activity/Vol] 48 U/L Normal 16-63 [facility] Comment on above: Performed By: #### L IVER, LIPA, HSTROPN, BMP ####[facility] [address] [place] [address]Dr. Michael Wynne AST [Catalytic activity/Vol] 26 U/L Normal 15-37 [facility] Comment on above: Performed By: #### L IVER, LIPA, HSTROPN, BMP ####[facility] [address] [place] [address]Dr. Michael Wynne BILI, CONJUGATED 0.2 mg/dL Normal 0.0-0.3 [facility] Comment on above: Performed By: #### L IVER, LIPA, HSTROPN, BMP ####[facility] [address] [place] [address]Dr. Michael Wynne Bilirubin [Mass/Vol] 1.3 mg/dL Normal 0.2-1.3 [facility] Comment on above: Performed By: #### L IVER, LIPA, HSTROPN, BMP ####[facility] [address] [place] [address]Dr. Michael Wynne Globulin (S) [Mass/Vol] 3.9 g/dL Normal [facility] Comment on above: Performed By: #### L IVER, LIPA, HSTROPN, BMP ####[facility] [address] [place] [address]Dr. Michael Wynne Protein [Mass/Vol] 8.2 g/dL Normal 6.1-8.2 [facility] Comment on above: Performed By: #### L IVER, LIPA, HSTROPN, BMP ####[facility] [address] [address]Dr. Michael Wynne PH VENOUS BLOODon 08-16-2021 PCO2 VENOUS 44.4 mmHg Normal 40.0-52.0 [facility] Comment on above: Performed By: #### C VDTBH #### [facility] [address] [address] [address] Michael Wynne pH VENOUS 7.209 Critically low 7.330-7.430 [facility] Comment on above: Performed By: #### C VDTBH #### [facility] [address] [address] [address] Michael Wynne POINT OF CARE GLUCOSEon 07-26 POCGLUC >600 Critically high 74-106 [facility] Comment on above: Result Comment: Lab Draw Ordered Performed By: #### P OCGLUC #### [facility] [address] [address] [address] Michael Wynne POCGLUC >600 Critically high 74-106 [facility] Comment on above: Result Comment: Lab Draw Ordered Performed By: #### C VDTBH #### [facility] [address] [address] [address] Michael Wynne PROF CHEM 8 (BAS METB)on Anion gap [Moles/Vol] 31.3 mmol/L Normal [facility] Comment on above: Performed By: #### L IVER LIPA, HSTROPN, BMP ####[facility] [address] [place] [address]Dr. Michael Wynne Calcium [Mass/Vol] 10.7 mg/dL Critically high 8.5-10.1 [facility] Comment on above: Performed By: #### L IVER, LIPA, HSTROPN, BMP ####[facility] [address] [address]Dr. Michael Wynne Chloride [Moles/Vol] 87 mmol/L Critically low 98-107 [facility] Comment on above: Performed By: #### L IVER, LIPA, HSTROPN, BMP ####[facility] [address] [place] [address]Dr. Michael Wynne CO2 [Moles/Vol] 18.3 mmol/L Critically low 22.0-30.0 [facility] Comment on above: Performed By: #### L IVER, LIPA, HSTROPN, BMP ####[facility] [address] [place] [address]Dr. Michael Wynne Creatinine [Mass/Vol] 1.82 mg/dL Critically high 0.66-1.25 [facility] Comment on above: Performed By: #### L IVNIRU LIPA, HSTROPN, BMP ####[facility] [address] [address]Dr. Michael Wynne EGFR-AF THAI 51 mL/min/1.73m2 Critically low >=60 [facility] Comment on above: Performed By: #### L IVER LIPA, HSTROPN, BMP ####[facility] [address] [place] [address]Dr. Michael Wynne EGFR-NON AF THAI 42 mL/min/1.73m2 Critically low >=60 [facility] Comment on above: Performed By: #### L IVNIRU LIPA, HSTROPN, BMP ####[facility] [address] [place], [place] [address]Dr. Michael Wynne Glucose [Mass/Vol] 738 mg/dL Critically high 74-106 [facility] Comment on above: Result Comment: Test Repeated. Critical Value Verified Performed By: #### L IVNIRU LIPA, HSTROPN, BMP ####[facility] [address] [place], [place] [address]Dr. Michael Wynne Potassium [Moles/Vol] 5.6 mmol/L Critically high 3.4-5.0 [facility] Comment on above: Performed By: #### L IVER LIPA, HSTROPN, BMP ####[facility] [address] [place] [address]Dr. Michael Wynne Sodium [Moles/Vol] 131 mmol/L Critically low 137-145 [facility] Comment on above: Performed By: #### L IVER LIPA, HSTROPN, BMP ####[facility] [address] [place], [place] [address]Dr. Michael Wynne Urea nitrogen [Mass/Vol] 38.0 mg/dL Critically high 7.0-18.0 [facility] Comment on above: Performed By: #### L IVER, LIPA, HSTROPN, BMP ####[facility] [address] [place], [place] [address]No. Michael Wynne Urea nitrogen/Creatinine [Mass ratio] 20.9 mg/mg Normal [facility] Comment on above: Performed By: #### L CURTIS COATES HSTROPN, REY ####[facility] [address] [place], [place] [address]ZyPallavi Wynne TROPONIN, HIGH SENSITIVITYon 08-16-2021 HSTROP 11.6 pg/mL Normal 4.0-42.2 [facility] Comment on above: Result Comment: CUT- OFF POINTS HAVE BEEN ESTABLISHED BASED ON THE FOURTH UNIVERSAL DEFINITIONS OF MYOCARDIAL INFARCTION. THE UPPER REFERENCE LIMIT (URL) OF TROPONIN, DEFINED THE 99TH PERCENTILE OF cTnI DISTRIBUTION IN A REFERENCE POPULATION, HAS BEEN CONFIRMED THE DECISION THRESHOLD FOR UT DIAGNOSIS. Performed By: #### L CURTIS COATES HSTROPN, REY ####[facility] [address] [place], [place] [address]TzPallavi Wynne Encounters Encounter Date Encounter Type Care Provider Facility Start: 08-21-2021 End: 08-22-[address] ANA GUADALUPE Facility:[facility] Start: 08-17-2021 End: 08-20-2021 Evaluation and management of inpatient DR JULIETA SIMENTAL Facility:[facility] Payers Date Payer Category Payer Unknown [id number] 1983 Unknown [id number] 1961 Unknown [id number] Clinical Note 08-21-2021 Note Date & Type [...] authenticated by: ANAY ALBERT Date: 2021-08-21 09:26 [facility] Summary Purpose Family History No Family History Records Found Advance Directives No Advanced Directives Records Found Additional Source Comments (unrecognized sect ion and content) No Status Records Found INFORMATION SOURCE (unrecogn ized section and content) DATE CREATED AUTHOR 08/25/2021 [facility] [place] [facility] FOR RECORDS PERTAINING TO PATIENTS WHO [...] BE BASED ON THE PRIMARY CLINICAL RECORDS. [employer] [facility]. provides no warranty or guarantee of the accuracy or completeness of information in this document.
== END 2023-06-04 10:37 | disposition home or self-care (01) ==
LOC: WC 10:36
PROVIDERS: PCP Family Medicine; Visit Provider Podiatrist Foot & Ankle Surgery
DX: E11.621 Type 2 diabetes mellitus with foot ulcer (principal); L97.514 Non-pressure chronic ulcer of other part of right foot with necrosis of bone
CPT/HCPCS: G0463